=== PATIENT | female | born 1955 | race Caucasian/White ===

== ENCOUNTER 2016-11-23 | Outpatient (CLI) | END 2016-11-23 21:41 | disposition critical access hospital (66) | CPT/HCPCS: A0425; A0429 ==

== ENCOUNTER 2016-11-23 21:45 | Emergency (ER) | payer MEDICAID ==
[2016-11-23] MEDS ORDERED: ONDANSETRON 4 MG/2 ML VIAL IVP STA (21:53)
[2016-11-23] MEDS ORDERED: SODIUM CHLORIDE 0.9% 1,000 ML IV ONE ×2 (21:53→23:45)
[2016-11-23] MEDS ORDERED: ONDANSETRON 4 MG/2 ML VIAL ONE (22:06)
[2016-11-24] MEDS ORDERED: ONDANSETRON 4 MG/2 ML VIAL IVP STA (03:19)
[2016-11-24] MEDS ORDERED: ONDANSETRON 4 MG/2 ML VIAL ONE (03:27)
== END 2016-11-24 05:29 | disposition home or self-care (01) ==
DX: R11.10 Vomiting, unspecified (principal); F10.129 Alcohol abuse with intoxication, unspecified; R74.0 Nonspecific elevation of levels of transaminase and lactic acid dehydrogenase [LDH]; K21.9 Gastro-esophageal reflux disease without esophagitis; F17.200 Nicotine dependence, unspecified, uncomplicated

== ENCOUNTER 2017-01-05 11:47 | Outpatient (CLI) | payer MEDICAID | END 2017-01-05 11:48 | disposition home or self-care (01) | DX: M50.31 Other cervical disc degeneration, high cervical region (principal); M47.812 Spondylosis without myelopathy or radiculopathy, cervical region ==

== ENCOUNTER 2017-01-05 12:07 | Emergency (ER) | payer MEDICAID ==
[2017-01-05] MEDS ORDERED: ACETAMINOPHEN 325 MG TABLET PO STA (13:31)
[2017-01-05] MEDS ORDERED: DEXAMETHASONE 10 MG/ML VIAL PO STA (13:31)
[2017-01-05] MEDS ORDERED: ACETAMINOPHEN 325 MG TABLET PO ONE (13:33)
[2017-01-05] MEDS ORDERED: DEXAMETHASONE 10 MG/ML VIAL ONE (13:33)
[2017-01-05] MEDS ORDERED: CHERRY SYRUP 10 ML UDC PO ONE (13:34)
== END 2017-01-05 14:14 | disposition home or self-care (01) ==
DX: M54.2 Cervicalgia (principal); M54.9 Dorsalgia, unspecified; G89.29 Other chronic pain; K21.9 Gastro-esophageal reflux disease without esophagitis; F17.200 Nicotine dependence, unspecified, uncomplicated
CPT/HCPCS: 72050; 99282; 99283; A9270

== ENCOUNTER 2017-02-01 11:55 | Outpatient (CLI) | payer MEDICAID | END 2017-02-01 11:56 | disposition critical access hospital (66) | DX: T43.222A Poisoning by selective serotonin reuptake inhibitors, intentional self-harm, initial encounter (principal) | CPT/HCPCS: A0425; A0429 ==

== ENCOUNTER 2017-02-01 12:14 | Emergency (ER) | payer MEDICAID ==
[2017-02-01] MEDS ORDERED: SODIUM CHLORIDE 0.9% 1,000 ML IV ONE (12:33)
[2017-02-01] MEDS ORDERED: PROMETHAZINE 25 MG/1 ML VIAL ONE (14:31)
[2017-02-01] MEDS ORDERED: PROMETHAZINE 25 MG/1 ML VIAL IM STA (14:32)
[2017-02-02] MEDS ORDERED: PRAMIPEXOLE 0.25 MG TABLET PO STA (01:11)
[2017-02-02] MEDS ORDERED: clonazePAM 0.5 MG TABLET PO ONE (01:35)
[2017-02-02] MEDS ORDERED: clonazePAM 0.5 MG TABLET PO STA (01:38)
== END 2017-02-02 08:16 ==
DX: F32.9 Major depressive disorder, single episode, unspecified (principal); R45.851 Suicidal ideations; T43.222A Poisoning by selective serotonin reuptake inhibitors, intentional self-harm, initial encounter; R11.0 Nausea; M54.2 Cervicalgia; M54.9 Dorsalgia, unspecified; G89.29 Other chronic pain; K21.9 Gastro-esophageal reflux disease without esophagitis; F17.200 Nicotine dependence, unspecified, uncomplicated
CPT/HCPCS: 36415; 80053; 80306; 80307; 80320; 80329; 81003; 83690; 85025; 93005; 93010; 96360; 96361; 96372; 99285; A9270

== ENCOUNTER 2017-02-02 08:06 | Outpatient (CLI) | payer MEDICAID | END 2017-02-02 08:07 | DX: R45.851 Suicidal ideations (principal); Z78.1 Physical restraint status | CPT/HCPCS: A0425; A0428 ==

== ENCOUNTER 2017-05-07 19:03 | Outpatient (CLI) | payer MEDICAID | END 2017-05-07 19:04 | disposition critical access hospital (66) | LOC: EMS 19:03 | PROVIDERS: ATTEND Surgery | DX: R10.9 Unspecified abdominal pain (principal) | CPT/HCPCS: A0425; A0429 ==

== ENCOUNTER 2017-05-07 19:21 | Emergency (ER) | payer MEDICAID ==
[2017-05-07 20:09] LABS: BILIRUBIN,URINE NEGATIVE (NEGATIVE)
[2017-05-07 20:10] LABS: UA w/ MICROSCOPIC CHARGE YES
[2017-05-07 20:21] LABS: UR CULTURE IF IND NOT INDICATED; WBC,URINE 0-3 /HPF (0-5)
--- NOTE | 2017-05-07 20:24 | ED Physician Documentation ---
PD HPI ABD PAIN - Stated complaint Stated Complaint: ABD PAIN - Chief complaint Chief Complaint: Abd Pain - History obtained from History obtained from: Patient - History of Present Illness Timing - onset: How many hours ago (2-3), Today Timing - duration: Hours Timing - details: Abrupt onset, Still present Quality: Aching, Sharp, Pain Location: RLQ Radiation: Right flank. No: Chest, Improved by: No: Laying still, Position Worsened by: Breathing. No: Moving, Palpation Associated symptoms: Nausea. No: Fever, Vomiting, Diarrhea, Dysuria Similar symptoms before: Has not had sx before Review of Systems Constitutional: denies: Fever, Chills Nose: denies: Rhinorrhea / runny nose, Congestion Throat: denies: Sore throat Cardiac: denies: Chest pain / pressure Respiratory: denies: Cough GI: reports: Nausea. 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 : None HEENT: None Psych: Depression, Anxiety, Other Musculoskeletal: Chronic back pain Derm: None - Past Surgical History Past Surgical History: Yes General: Cholecystectomy, Appendectomy, Bowel surgery, Colonoscopy Ortho: Spine surgery /ICT QUALITY ASSURANCE ENGINEER: Hysterectomy - Present Medications Home Medications: Ambulatory Orders Medication Instructions Recorded Confirmed Acetaminophen [Tylenol] 325 mg PO QID PRN 02/01/17 02/01/17 Citalopram Hydrobromide 10 mg PO DAILY 02/01/17 05/07/17 [Citalopram HBr] Ferrous Sulfate 324 mg PO BID 02/01/17 05/07/17 Folic Acid 1 mg PO DAILY 02/01/17 05/07/17 Furosemide 20 mg PO DAILY 02/01/17 05/07/17 Mirtazapine 15 mg PO DAILY 02/01/17 05/07/17 Pramipexole [Mirapex] 0.125 mg PO DAILY 02/01/17 05/07/17 Buprenorphine HCl 16 mg SL DAILY 05/07/17 05/07/17 Dexamethasone [Decadron] 4 mg PO DAILY #5 tablet 05/07/17 Oxycodone HCl/Acetaminophen 1 - 2 each PO Q6H PRN #15 tablet 05/07/17 [Percocet 5-325 mg Tablet] - Allergies Allergies/Adverse Reactions: Allergies Allergy/AdvReac Type Severity Reaction Status Date / Time aspirin AdvReac Nausea Verified 01/05/17 12:21 NSAIDS (Non-Steroidal AdvReac Nausea Verified 01/05/17 12:21 Anti-Inflamma - Social History Does the pt smoke?: Yes Smoking Status: Current some day smoker Does the pt drink ETOH?: Yes Does the pt have substance abuse?: Yes Substance Use and Type: Marijuana - Family History Family history: denies: Aortic aneursym, Aortic dissection - Immunizations Immunizations are current?: Yes Immunizations: TDAP >10years/unknown, Other immun current - POLST Patient has POLST: No PD ED PE NORMAL - Vitals Vital signs reviewed: Yes - General General: Alert and oriented X 3, Well developed/nourished, Other (appears in pain) - Neck Neck: Supple, no meningeal sign, No adenopathy - Cardiac Cardiac: RRR, No murmur - Respiratory Respiratory: Clear bilaterally - Abdomen Abdomen: Normal bowel sounds, Soft, Non tender, Non distended, No organomegaly - Female Female : Deferred - Rectal Rectal: Deferred - Back Back: No spinal TTP, Other Results - Vitals Vitals: Vital Signs - 24 hr 05/07/17 05/07/17 05/07/17 19:24 21:52 23:06 Temperature 36 C L 36.7 C Heart Rate 78 82 86 Respiratory 18 20 18 Rate Blood Pressure 150/87 H 162/80 H 145/70 H O2 Saturation 97 100 100 Oxygen O2 Source [With Activity] Nasal cannula O2 Source [Without Activity] Nasal cannula O2 Source Room air - Labs Labs: Laboratory Tests 05/07/17 05/07/17 05/07/17 20:00 21:14 21:14 WBC 18.9 H RBC 5.15 Hgb 15.2 Hct 46.0 MCV 89.3 MCH 29.5 MCHC 33.0 RDW 17.1 H Plt Count 295 MPV 7.0 L Neut # 16.9 H Lymph # 1.3 L [place] # 0.7 Eos # 0.0 Baso # 0.0 Absolute Nucleated RBC 0.00 Nucleated RBCs 0.0 Sodium 137 Potassium 3.6 Chloride 103 Carbon Dioxide 23 Anion Gap 11.0 BUN 13 Creatinine 0.8 Estimated GFR (MDRD) 73 L Glucose 127 H Calcium 9.5 Total Bilirubin 0.4 AST 19 ALT 11 Alkaline Phosphatase 154 H Total Protein 8.4 H Albumin 4.5 Globulin 3.9 Albumin/Globulin Ratio 1.2 Lipase 19 L Urine Color YELLOW Urine Clarity CLEAR Urine pH 7.0 Ur Specific [place] 1.015 Urine Protein NEGATIVE Urine Glucose (UA) NEGATIVE Urine Ketones NEGATIVE Urine Occult Blood SMALL H Urine Nitrite NEGATIVE Urine Bilirubin NEGATIVE Urine Urobilinogen 0.2 (NORMAL) Ur Leukocyte Esterase NEGATIVE Urine RBC 6-10 H Urine WBC 0-3 Ur Squamous Epith Cells NONE SEEN Urine Bacteria None Seen Ur Microscopic Review INDICATED Urine Culture Comments NOT INDICATED - Rads (name of study) KUB CT Radiology: Prelim report reviewed, EMP read contemporaneously (4 mm stone distal ureter with moderate hydroureter/renal swelling. Incidental large renal cyst, similar to prior scans. ) PD MEDICAL DECISION MAKING - ED course Complexity details: reviewed results, re-evaluated patient (moderately better with IM then oral meds. ), considered differential (so she does have 4 mm stone at distal ureter with some hydronephrosis, which reasonably hurts a lot. She has history of drug seeking behavior in the past. Quandary about pain meds but my sympathy wins out and I gave her some meds here and Rx for short term. For what it is worth, I did tell her this was exception to the general concept of deferring pain meds to her primary care provider. ), d/w patient Departure - Departure Disposition: 01 Home, Self Care Clinical Impression: Flank pain, acute, Ureterolithiasis Condition: Stable Record reviewed to determine appropriate education?: Yes Instructions: ED Stone Renal W Colic Prescriptions: Dexamethasone [Decadron] 4 mg PO DAILY #5 tablet Oxycodone HCl/Acetaminophen [Percocet 5-325 mg Tablet] 1 - 2 each PO Q6H PRN # 15 tablet PRN Reason: Pain Comments: Continue usual medications. Add Decadron for inflammation from the stone, and Percocet for pain if needed. Recheck with yur PCP in the next 2 days, call for appt. Discharge Date/Time: 05/07/17 23:30
[2017-05-07] MEDS ORDERED: HYDROmorphone 1 MG/ML SYRINGE IM STA (20:43)
[2017-05-07] MEDS ORDERED: PROMETHAZINE 25 MG/1 ML VIAL IM STA (20:44)
[2017-05-07] MEDS ORDERED: HYDROmorphone 1 MG/ML SYRINGE ONE (20:53)
[2017-05-07] MEDS ORDERED: PROMETHAZINE 25 MG/1 ML VIAL ONE (20:53)
[2017-05-07 21:23] LABS: BASOPHILS % (AUTO) 0.2 %; EOSINOPHILS % (AUTO) 0.1 %; HGB - HEMOGLOBIN 15.2 g/dL (12.0-16.0); LYMPHOCYTES # (AUTO) 1.3 10^3/uL (1.5-3.5); LYMPHOCYTES % (AUTO) 6.8 %; MEAN CORPUSCULAR HEMOGLOBIN 29.5 pg (27.0-31.0); MEAN CORPUSCULAR VOLUME 89.3 fL (81.0-99.0); MONOCYTES # (AUTO) 0.7 10^3/uL (0.0-1.0); MONOCYTES % (AUTO) 3.9 %; NEUTROPHILS # (AUTO) 16.9 10^3/uL (1.5-6.6); RED BLOOD COUNT 5.15 10^6/uL (4.20-5.40); RED CELL DISTRIBUTION WIDTH 17.1 % (12.0-15.0); UNCORRECTED WHITE BLOOD COUNT 18.9 x10^3/uL; WHITE BLOOD COUNT 18.9 x10^3/uL (4.8-10.8)
[2017-05-07 21:35] LABS: ALBUMIN/GLOBULIN RATIO 1.2 (1.0-2.2); BILIRUBIN,TOTAL 0.4 mg/dL (0.2-1.0); CALCIUM 9.5 mg/dL (8.5-10.3); CREATININE 0.8 mg/dL (0.4-1.0); POTASSIUM 3.6 mmol/L (3.5-5.0); TOTAL PROTEIN 8.4 g/dL (6.7-8.2)
[2017-05-07] MEDS ORDERED: oxyCOD/ACETAMIN 5 MG/325 MG TABLET PO STA (22:09)
[2017-05-07] MEDS ORDERED: oxyCOD/ACETAMIN 5 MG/325 MG TABLET PO ONE (22:11)
--- NOTE | 2017-05-07 22:29 | CT Preliminary Report ---
Exam: CT KUB IMPRESSION: 1. Moderate right hydroureteronephrosis extending to a 4 mm distal ureteral calculus. 2. Three subcentimeter right intrarenal calculi. 3. Unchanged postcholecystectomy dilatation of the common bile duct. [facility] SITE ID: [id number]
--- NOTE | 2017-05-07 22:32 | CT Report ---
EXAM: CT ABDOMEN AND PELVIS (CT KUB) EXAM DATE: 05/07/2017 09:50 PM. CLINICAL HISTORY: Right abdominal/flank pain, onset yesterday. COMPARISONS: 07/30/2016. TECHNIQUE: Routine axial helical CT imaging was performed through the abdomen and pelvis without IV c ontrast. Reconstructions: Coronal and sagittal. In accordance with CT protocol optimization, one or more of the following dose reduction techniques w ere utilized for this exam: automated exposure control, adjustment of mA and/or KV based on patient s ize, or use of iterative reconstructive technique. FINDINGS: Lung Bases: Mild emphysematous changes. Linear atelectasis or scarring in the posterior right lower l obe and inferolateral right middle lobe. Right Kidney/Ureter: Large 6.0 cm cortical/parapelvic cyst in the lower pole. Moderate hydroureterone phrosis extending to a 4 mm stone in the distal ureter (axial image 107, coronal image 59). Three int rarenal calculi in the lower pole, the largest 6 mm. Associated perinephric and periureteric fat stra nding. Left Kidney/Ureter: 5.4 cm cortical cyst in the anterior lower pole. No stones, hydronephrosis, or hy droureter. No perinephric fat stranding. Other Solid Organs: Atrophic pancreas with numerous parenchymal calcifications in the body and tail, likely sequela of prior pancreatitis. Noncontrast images of the solid organs are otherwise grossly un remarkable. Gallbladder/Bile Ducts: Post cholecystectomy. The common bile duct is dilated, measuring 15 mm in mago meter, as before (upper limits of normal postcholecystectomy 10 mm). Peritoneal Cavity: The bowel is grossly unremarkable, without evident focal wall thickening or adjace nt mesenteric fat stranding to suggest acute inflammatory process, or evidence of bowel obstruction. The appendix is surgically absent. No free fluid, pneumoperitoneum, or moni adenopathy. Pelvic Organs: Post hysterectomy. The bladder is within normal limits. Vasculature: Mild atherosclerotic calcifications within the aorta and iliac arteries. No aneurysm. Bones: Chronic T10 compression fracture. Partially imaged thoracolumbar spinal fusion hardware extend ing from the visualized thoracic spine to L4. Remote surgical fusion of L4-S1. No acute bony abnormal ity. Other: Unchanged small fat-containing umbilical hernia. IMPRESSION: 1. Moderate right hydroureteronephrosis extending to a 4 mm distal ureteral calculus. 2. Three subcentimeter right intrarenal calculi. 3. Unchanged postcholecystectomy dilatation of the common bile duct. [facility] Referring Provider Line: [phone] SITE ID: [id number]
[2017-05-07] MEDS ORDERED: oxyCODONE/ACET 5/325 Prepack 4 PO STA (23:02)
[2017-05-07] MEDS ORDERED: DEXAMETHASONE 10 MG/ML VIAL PO STA (23:02)
[2017-05-07] MEDS ORDERED: oxyCODONE/ACET 5/325 Prepack 4 PO ONE (23:04)
[2017-05-07] MEDS ORDERED: DEXAMETHASONE 10 MG/ML VIAL ONE (23:04)
[2017-05-07 23:07] VITALS: BP 145/70
== END 2017-05-07 23:30 | disposition home or self-care (01) ==
LOC: EDUNIT# → ED 19:21
DX: N13.2 Hydronephrosis with renal and ureteral calculous obstruction (principal); R10.31 Right lower quadrant pain; K21.9 Gastro-esophageal reflux disease without esophagitis; F17.200 Nicotine dependence, unspecified, uncomplicated
CPT/HCPCS: 36415; 74176; 80053; 81001; 83690; 85025; 96372; 99283; 99284; A9270; J1170; 81003; 87086

== ENCOUNTER 2019-06-10 12:02 | Outpatient (CLI) | payer MEDICAID ==
--- NOTE | 2019-06-11 08:50 | MRI Report ---
Reason: THORACIC BACK PAIN Procedure Date: 06/10/2019 Accession Number: [id number] / [id number] Procedure: MRI - Thoracic Spine W/O CPT Code: FULL RESULT: EXAM: MRI THORACIC SPINE WITHOUT CONTRAST EXAM DATE: 06/10/2019 02:05 PM. CLINICAL HISTORY: Reported history of severe mid back pain. Previous multilevel posterior spinal instrumented fusion and decompressions. COMPARISONS: No prior MRI. Thoracic spine 2 view 04/20/2019 4:09 PM. TECHNIQUE: Multiplanar, multisequence T1-weighted and fluid-sensitive sequences of the thoracic spine from C7 to L1 without contrast. Other: None. FINDINGS: Spinal Canal: No signal abnormality in the visualized spinal cord. However, limited evaluation of the lower thoracic cord secondary to susceptibility artifact created by posterior benjamin and screw fusion hardware. Alignment: Mild focal kyphosis centered at T7-T8. Mild degenerative anterior subluxation of C7 on T1. Minimal degenerative anterolisthesis of T1 on T2 may also be present. Bone Marrow: Susceptibility artifact from posterior spinal fusion hardware is present. Posterior benjamin and screw fusion hardware extends from the T8 level inferiorly and into indeterminant distance into the lumbar region. Chronic appearing mild anterior wedge compression type deformities of the T8 and T11 vertebral bodies. No clear evidence of acute compression fracture. Moderate Modic type I degenerative endplate signal changes are present anteriorly at the T6-T7 level. Probable atypical hemangioma of the T5 vertebral body posteriorly on the left. Disk Levels/Facets: C7-T1: Moderate disk degeneration and facet arthropathy. Mild central stenosis. Bulging disk. No definite cord compression. At least mild if not moderate bilateral foraminal stenosis, potentially worse on the left than the right. T1-T2: Mild disk degeneration. Mild to moderate facet arthropathy. Minimal disk bulge. No significant central stenosis. Patent neural foramina. T2-T3: Mild disk degeneration. Asymmetric right intraforaminal disk protrusion associated with approximately mild stenosis. Mild to moderate facet arthropathy left greater than right. T3-T4: Minimal disk degeneration and facet arthropathy. No significant stenosis. T4-T5: Mild disk degeneration. Minimal left and mild right facet arthropathy. No focal disk herniation or significant stenosis. T5-T6: Minimal disk degeneration. Mild to moderate right greater than left facet arthropathy. No focal disk herniation or significant stenosis. T6-T7: Moderate disk degeneration. Mild facet arthropathy. No focal disk herniation or significant stenosis. T7-T8: Moderate disk degeneration. Minimal to mild facet arthropathy. No focal disk herniation or significant stenosis. T8-T9: No evidence for focal disk herniation or significant central stenosis. Ill-defined foramina. T9-T10: Negligible disk space narrowing. No evidence for focal disk herniation or central stenosis. T10-T11: Chronic moderate disk degeneration. Degenerative Schmorl's nodes. Facet arthropathy is likely present but ill-defined. No significant or acute central canal narrowing or disk extrusion ill-defined neural foramina. T11-T12: Mild degenerative changes without evidence for significant central stenosis or focal disk herniation. T12-L1: Mild disk degeneration. Patent central canal, previous dorsal laminectomy decompression. Ill-defined neural foramina. Musculature: Mild diffuse posterior paraspinal muscle fatty atrophy. Soft tissue detail is obscured posteriorly by artifact from fusion hardware. Prominent cysts of both kidneys. Nonspecific prominence/dilatation of the partially visualized biliary tree. Other: None. IMPRESSION: Multilevel degenerative spinal spondylosis. Prior multilevel lumbar spine surgery. As far as can be determined, no significant central stenosis or focal cord lesion. No evidence for acute or high-grade foraminal stenosis or focal thoracic disk extrusion. Degenerative changes in the lower cervical spine and upper lumbar spine are not optimally characterized. [facility]
== END 2019-06-10 12:03 | disposition home or self-care (01) ==
LOC: DI 12:02
PROVIDERS: ATTEND Family Medicine
DX: M47.814 Spondylosis without myelopathy or radiculopathy, thoracic region (principal)
CPT/HCPCS: 72146

== ENCOUNTER 2019-07-29 13:17 | Outpatient (CLI) | payer MEDICAID ==
--- NOTE | 2019-07-31 13:25 | CT Report ---
Reason: PSEUDARTHROSIS AFTER FUSION OR ARTHRODESIS Procedure Date: 07/29/2019 Accession Number: [id number] / [id number] Procedure: CT - LUMBAR SPINE WO CPT Code: FULL RESULT: EXAM: CT LUMBAR SPINE WITHOUT CONTRAST EXAM DATE: 07/29/2019 01:49 PM. CLINICAL HISTORY: Pseudarthrosis after fusion or arthrodesis. COMPARISONS: LUMBAR SPINE 2 VIEW 04/20/2019 4:15 PM. TECHNIQUE: Thin-section axial images were acquired of the lumbar spine from T12 to S1 without contrast. Post-processing: Coronal and sagittal reformats. Other: None. In accordance with CT protocol optimization, one or more of the following dose reduction techniques were utilized for this exam: automated exposure control, adjustment of mA and/or KV based on patient size, or use of iterative reconstructive technique. FINDINGS: Alignment: No scoliosis or spondylolisthesis. Bones: Five [id number] lumbar vertebral bodies are present. The bones are demineralized. No acute lumbar spine fracture is identified. Posterior spinal fusion extends from the thoracic spine through L4. Bilateral pedicle screws are present from T12 through L4 at all levels which are connected by vertically oriented stabilizing rods. Interbody fusion devices are present at L1-L2, L2-L3, and L3-L4. There is no evidence of hardware failure or loosening. The pedicle screws do not impinge the spinal canal or the foramina. There is solid bony fusion across the disk spaces at L1-L2, L2-L3, and L3-L4. Fusion of the posterior aspect of the L4-L5 and L5-S1 disk spaces is also seen but the anterior portions of the disk spaces remain unfused. There is solid bony fusion across the posterior elements from T11 through S1 bilaterally. Disk Levels/Facets: T11-T12: The spinal canal and foramina are patent. T12-L1: The spinal canal is decompressed. The foramina are pain. L1-L2: The spinal canal is decompressed. The foramina are patent. L2-L3: The spinal canal is decompressed. The foramina are patent. L3-L4: The spinal canal is decompressed. The foramina are patent. L4-L5: The spinal canal is decompressed. The foramina are patent. L5-S1: The spinal canal is decompressed. The foramina are patent. Musculature: Extensive postoperative changes are present in the posterior paraspinal muscles. Other: The left adrenal gland is diffusely thickened. Cholecystectomy clips are in place. Extensive calcifications are noted in the expected location of the pancreas. IMPRESSION: 1. Extensive anterior and posterior fusion is present throughout the lumbar spine without evidence of hardware failure or loosening. 2. There is solid bony fusion across the disk spaces at L1-L2, L2-L3, and L3-L4. Solid bony fusion is also present across the bilateral posterior elements from T11 through L5. There is partial fusion at the L4-L5 and L5-S1 disk spaces. 3. No acute cervical spine fracture or malalignment. 4. Dorsal decompression is present from L1 through L5. 5. No evidence of spinal canal or foraminal stenosis. [facility]
--- NOTE | 2019-07-31 13:25 | CT Report ---
Reason: PSEUDARTHROSIS AFTER FUSION OR ARTHRODESIS Procedure Date: 07/29/2019 Accession Number: [id number] / [id number] Procedure: CT - THORACIC SPINE WO CPT Code: FULL RESULT: EXAM: CT THORACIC SPINE WITHOUT CONTRAST EXAM DATE: 07/29/2019 01:49 PM. CLINICAL HISTORY: Pseudarthrosis after fusion or arthrodesis. COMPARISONS: THORACIC SPINE W/O 06/10/2019 1:34 PM THORACIC SPINE 2 VIEW 04/20/2019 4:09 PM. TECHNIQUE: Thin-section axial images were acquired of the thoracic spine from C7 to L1 without contrast. Post-processing: Coronal and sagittal reformats. Other: None. In accordance with CT protocol optimization, one or more of the following dose reduction techniques were utilized for this exam: automated exposure control, adjustment of mA and/or KV based on patient size, or use of iterative reconstructive technique. FINDINGS: Alignment: Thoracic kyphosis is present centered at T7-T8 due to disk height loss at this level as well as vertebral body height loss at T8. There is no scoliosis. Grade 1 anterolisthesis is again seen at T7-T8. Bones: The bones are demineralized. No acute thoracic spine fracture is identified. An anterior wedge compression fracture of T8 appears stable compared to the prior exams. An old 2 column fracture at T11 is noted, and there is no evidence of worsening vertebral body height loss compared to the prior radiographs. Posterior spinal fusion hardware begins at T8 and extends inferiorly out of the field of view. Bilateral pedicle screws are present at all levels except at T8-T11. The pedicle screws are connected by vertically oriented stabilizing rods. Merissa-screw lucency is seen bilaterally at T8 which in retrospect was present on the prior thoracic spine radiographs. There is no evidence of hardware fracture. The pedicle screws do not impinge the spinal canal or foramina. However, the T8 pedicle screws are again demonstrated extending into the T7-T8 disk space. Disk Levels/Facets: No significant disk bulge or herniation is identified given susceptibility artifact from posterior spinal fusion hardware. Mild spinal canal stenosis is noted at the T11 fracture due for mild retropulsion of the posterior superior vertebral body. Moderate bilateral foraminal narrowing is noted at T9-T10 and T10-T11 due to disk height loss and facet arthropathy. The foramina are patent at all other thoracic levels. Musculature: There is mild diffuse fatty atrophy of the posterior paraspinal muscles. Other: Mild emphysematous changes are seen in the visualized lungs. The left adrenal gland appears diffusely thickened. IMPRESSION: 1. No acute cervical spine fracture or interval change in alignment compared to the thoracic spine MRI from 06/10/2019 and the thoracic spine radiographs from 04/20/2019. 2. Kyphosis is again demonstrated with the apex at T7-T8. 3. Stable appearance of chronic-appearing fractures at T8 and T11 without further vertebral body height loss. 4. Lucencies are seen surrounding the bilateral T8 screws likely representing loosening. No hardware fracture is identified. [facility]
== END 2019-07-29 13:18 | disposition home or self-care (01) ==
LOC: DI 13:17
PROVIDERS: ATTEND Neurological Surgery
DX: M51.34 Other intervertebral disc degeneration, thoracic region (principal); M47.814 Spondylosis without myelopathy or radiculopathy, thoracic region; M40.204 Unspecified kyphosis, thoracic region; M84.48XS Pathological fracture, other site, sequela; M48.04 Spinal stenosis, thoracic region; Z98.1 Arthrodesis status
CPT/HCPCS: 72128; 72131

== ENCOUNTER 2020-03-11 17:18 | Outpatient (CLI) | payer MEDICAID | END 2020-03-11 17:19 | disposition critical access hospital (66) | LOC: EMS 17:18 | PROVIDERS: ATTEND Surgery | DX: R45.851 Suicidal ideations (principal); R46.89 Other symptoms and signs involving appearance and behavior | CPT/HCPCS: A0425; A0429; A0999 ==

== ENCOUNTER 2020-03-11 17:37 | Inpatient (IN) | payer MEDICAID ==
--- NOTE | 2020-03-11 17:48 | ED Physician Documentation ---
PD HPI MHE - Stated complaint Stated Complaint: MHE - History obtained from History obtained from: Patient, EMS - History of Present Illness Primary symptom: Suicidal ideation (65-year-old woman who used to be well-known to this emergency department when she was an alcoholic but has not been drinking in about 3 years and as such her visits were significantly fewer and further between. Brought in by paramedics today, reportedly thinking that a pill that she took yesterday was laced with something and has been acting odd ever since. There was a report that she made a threat to jump out her window although the patient denies this.) Review of Systems Ten Systems: 10 systems reviewed and negative Constitutional: denies: Fever, Chills Cardiac: denies: Chest pain / pressure, Palpitations Respiratory: denies: Dyspnea, Cough GI: denies: Abdominal Pain, Nausea, Vomiting PD PAST MEDICAL HISTORY - Past Medical History Cardiovascular: None Respiratory: None Endocrine/Autoimmune: None GI: GERD, C.difficile, Other HYDRAULIC BLOCKER: None : None HEENT: None Psych: Depression, Anxiety, Other Musculoskeletal: Chronic back pain Derm: None - Past Surgical History Past Surgical History: Yes General: Cholecystectomy, Appendectomy, Bowel surgery, Colonoscopy Ortho: Spine surgery /HYDRAULIC BLOCKER: Hysterectomy - Present Medications Home Medications: Ambulatory Orders Medication Instructions Recorded Confirmed Acetaminophen [Tylenol] 325 mg PO QID PRN 02/01/17 02/01/17 Citalopram Hydrobromide 10 mg PO DAILY 02/01/17 05/07/17 [Citalopram HBr] Ferrous Sulfate 324 mg PO BID 02/01/17 05/07/17 Folic Acid 1 mg PO DAILY 02/01/17 05/07/17 Furosemide 20 mg PO DAILY 02/01/17 05/07/17 Mirtazapine 15 mg PO DAILY 02/01/17 05/07/17 Pramipexole [Mirapex] 0.125 mg PO DAILY 02/01/17 05/07/17 Oxycodone HCl/Acetaminophen 1 - 2 each PO Q6H PRN #15 tablet 05/07/17 [Percocet 5-325 mg Tablet] buprenorphine HCL [Buprenorphine 16 mg SL DAILY 05/07/17 05/07/17 HCl] dexAMETHasone [Decadron] 4 mg PO DAILY #5 tablet 05/07/17 Morphine ER 15 mg PO DAILY 03/11/20 03/11/20 - Allergies Allergies/Adverse Reactions: Allergies Allergy/AdvReac Type Severity Reaction Status Date / Time aspirin AdvReac Nausea Verified 01/05/17 12:21 NSAIDS (Non-Steroidal AdvReac Nausea Verified 01/05/17 12:21 Anti-Inflamma - Social History Does the pt smoke?: Yes Smoking Status: Current some day smoker Does the pt drink ETOH?: Yes Does the pt have substance abuse?: Yes - Immunizations Immunizations are current?: Yes Immunizations: TDAP >10years/unknown, Other immun current - POLST Patient has POLST: No PD ED PE NORMAL - Vitals Vital signs reviewed: Yes - General General: Alert and oriented X 3, Other (She is agitated and slightly belligerent, but generally cooperative) - Neck Neck: Supple, no meningeal sign, No bony TTP - Cardiac Cardiac: RRR, No murmur - Respiratory Respiratory: No respiratory distress, Clear bilaterally - Abdomen Abdomen: Normal bowel sounds, Soft, Non tender - Back Back: No CVA TTP, No spinal TTP - Derm Derm: Normal color, Warm and dry - Extremities Extremities: No edema, No calf tenderness / cord - Neuro Neuro: No motor deficit, No sensory deficit Results - Vitals Vitals: Vital Signs - 24 hr 03/11/20 03/11/20 03/11/20 17:44 19:22 19:31 Temperature 36 C L Heart Rate 129 H 104 H 10 L Respiratory 20 20 15 Rate Blood Pressure 145/110 H 152/77 H 123/65 O2 Saturation 100 97 100 03/11/20 03/11/20 03/11/20 19:32 19:36 20:08 Temperature Heart Rate 101 H 100 119 H Respiratory 15 16 Rate Blood Pressure 142/74 H 165/91 H O2 Saturation 100 100 03/11/20 03/11/20 03/11/20 20:17 20:33 20:42 Temperature Heart Rate 116 H 117 H 105 H Respiratory 23 29 H 15 Rate Blood Pressure 151/71 H 140/125 H 134/73 H O2 Saturation 100 99 98 03/11/20 20:45 Temperature Heart Rate 90 Respiratory 15 Rate Blood Pressure 102/63 O2 Saturation 100 Oxygen O2 Source [With Activity] Nasal cannula O2 Source [Without Activity] Nasal cannula O2 Source Mechanical ventilator - EKG (time done) 2121 Rate: Rate (enter#) (85) Nikolai: Normal Intervals: Normal IN, Prolonged QT QRS: Normal Ischemia: Normal ST segments Computer interpretation: Agree with computer - Labs Labs: Laboratory Tests 03/11/20 03/11/20 03/11/20 18:21 18:21 18:21 WBC 13.9 H RBC 3.94 L Hgb 13.2 Hct 36.7 L MCV 93.1 MCH 33.5 H MCHC 36.0 RDW 12.1 Plt Count 276 MPV 8.3 Neut # (Auto) 12.4 H Lymph # (Auto) 0.6 L [place] # (Auto) 0.8 Eos # (Auto) 0.0 Baso # (Auto) 0.0 Absolute Nucleated RBC 0.00 Nucleated RBC % 0.0 Sodium 135 Potassium 2.7 L Chloride 97 L Carbon Dioxide 24 Anion Gap 14.0 H BUN 13 Creatinine 0.7 Estimated GFR (MDRD) 84 L Glucose 166 H Calcium 9.0 Total Bilirubin 0.7 AST 41 ALT 32 Alkaline Phosphatase 107 Total Protein 7.4 Albumin 4.2 Globulin 3.2 Albumin/Globulin Ratio 1.3 Lipase 19 L TSH 1.12 Urine Color Urine Clarity Urine pH Ur Specific [place] Urine Protein Urine Glucose (UA) Urine Ketones Urine Occult Blood Urine Nitrite Urine Bilirubin Urine Urobilinogen Ur Leukocyte Esterase Urine RBC Urine WBC Ur Squamous Epith Cells Urine Bacteria Ur Microscopic Review Urine Culture Comments Salicylates < 6.0 Urine Opiates Screen Ur Oxycodone Screen Urine Methadone Screen Ur Propoxyphene Screen Acetaminophen < 10 L Ur Barbiturates Screen Ur Tricyclics Screen Ur Phencyclidine Scrn Ur Amphetamine Screen U Methamphetamines Scrn U Benzodiazepines Scrn Urine Cocaine Screen U Cannabinoids Screen Ethyl Alcohol < 5.0 03/11/20 03/11/20 20:50 20:50 WBC RBC Hgb Hct MCV MCH MCHC RDW Plt Count MPV Neut # (Auto) Lymph # (Auto) [place] # (Auto) Eos # (Auto) Baso # (Auto) Absolute Nucleated RBC Nucleated RBC % Sodium Potassium Chloride Carbon Dioxide Anion Gap BUN Creatinine Estimated GFR (MDRD) Glucose Calcium Total Bilirubin AST ALT Alkaline Phosphatase Total Protein Albumin Globulin Albumin/Globulin Ratio Lipase TSH Urine Color YELLOW Urine Clarity CLEAR Urine pH 6.5 Ur Specific [place] >=1.030 H Urine Protein NEGATIVE Urine Glucose (UA) NEGATIVE Urine Ketones 40 H Urine Occult Blood MODERATE H Urine Nitrite NEGATIVE Urine Bilirubin NEGATIVE Urine Urobilinogen 0.2 (NORMAL) Ur Leukocyte Esterase NEGATIVE Urine RBC 0-5 Urine WBC 0-3 Ur Squamous Epith Cells NONE SEEN Urine Bacteria None Seen Ur Microscopic Review INDICATED Urine Culture Comments NOT INDICATED Salicylates Urine Opiates Screen NEGATIVE Ur Oxycodone Screen POSITIVE H Urine Methadone Screen NEGATIVE Ur Propoxyphene Screen NEGATIVE Acetaminophen Ur Barbiturates Screen NEGATIVE Ur Tricyclics Screen POSITIVE H Ur Phencyclidine Scrn NEGATIVE Ur Amphetamine Screen NEGATIVE U Methamphetamines Scrn NEGATIVE U Benzodiazepines Scrn NEGATIVE Urine Cocaine Screen NEGATIVE U Cannabinoids Screen POSITIVE H Ethyl Alcohol - Rads (name of study) Ct Head Radiology: EMP read contemporaneously (nad) 1v Chest Radiology: EMP read contemporaneously (ETT 2.7cm above gordon) Post central line and NG tube chest x-ray Radiology: EMP read contemporaneously (Gastric tube in the stomach, central line in the low SVC right atrium, endotracheal tube unchanged) Procedures - Intubation Provider: Emergency physician Medications: Propofol (100mg IVP), Rocuronium (40mg IVP) Blade: Stew (4) Tube: Size-enter number (7.5), Cuffed, Marked at teeth-enter cm (21) Route: Oral Confirmation: Direct visualization, Bilateral breath sounds, End tidal CO2, Pulse ox, Chest xray Complications: No compications - Central Line Central Line Preparation: Unable to obtain consent, Time out completed, Ultrasound used, Sterile prep and drape Central line location: Right IJ Central line type: Triple lumen Central line aftercare: Chlorhexidine disc placed, Secured, Placement confirmed, No pneumothorax, No complications, Bundle checklist complete PD MEDICAL DECISION MAKING - ED course ED course: 65-year-old woman presents with suicidal ideation potentially although she denies it and odd behavior. There was a potential report of some sort of drug ingestion. Unclear what this was. After presentation the emergency department she quickly decompensated and had a first and then a second seizure. She did not return to baseline between the seizures and the altered mental status after the second Seizure was prolonged and profound necessitating endotracheal intubation for airway protection. She was not hypoxic. 1 of her peripheral IVs infiltrated, she was a tough IV stick so I placed a central line in the right IJ without issues. Spoke with Dr. Saunders for admission to the ICU at 8:52 PM. - Critical Care Time(min): 45 Time Includes: Direct patient care, Review records, Reassess patient, Document care, Coordinate care, Medical consult Data interpretation: Labs, Pulse ox Procedures excluded from critical care time: Central IV, Intubation Departure - Departure Disposition: 66 [facility] DC/Xfer Clinical Impression: Seizure, Depressive disorder Respiratory failure Qualifiers: Chronicity: acute Respiratory failure complication: unspecified whether with hypoxia or hypercapnia Qualified Code(s): J96.00 - Acute respiratory failure, unspecified whether with hypoxia or hypercapnia Drug overdose Qualifiers: Encounter type: initial encounter Injury intent: undetermined intent Qualified Code(s): T50.904A - Poisoning by unspecified drugs, medicaments and biological substances, undetermined, initial encounter Condition: Critical
[2020-03-11] MEDS ORDERED: OLANZapine 10 MG VIAL IM STA (18:05)
[2020-03-11 18:24] LABS: BASOPHILS % (AUTO) 0.2 %; HGB - HEMOGLOBIN 13.2 g/dL (12.0-16.0); LYMPHOCYTES # (AUTO) 0.6 10^3/uL (1.5-3.5); LYMPHOCYTES % (AUTO) 4.2 %; MEAN CORPUSCULAR HEMOGLOBIN 33.5 pg (27.0-31.0); MEAN CORPUSCULAR VOLUME 93.1 fL (81.0-99.0); MEAN PLATELET VOLUME 8.3 fL (7.9-10.8); MONOCYTES # (AUTO) 0.8 10^3/uL (0.0-1.0); MONOCYTES % (AUTO) 5.7 %; NEUTROPHILS # (AUTO) 12.4 10^3/uL (1.5-6.6); NEUTROPHILS % (AUTO) 89.3 %; PLT - PLATELET COUNT 276 10^3/uL (130-450); RED BLOOD COUNT 3.94 10^6/uL (4.20-5.40); RED CELL DISTRIBUTION WIDTH 12.1 % (12.0-15.0); WHITE BLOOD COUNT 13.9 x10^3/uL (4.8-10.8)
[2020-03-11] MEDS ORDERED: LORazepam 2 MG/ML VIAL IVP STA (18:24)
[2020-03-11 18:40] LABS: ACETAMINOPHEN < 10 ug/mL (10-30); ALBUMIN 4.2 g/dL (3.2-5.5); ALBUMIN/GLOBULIN RATIO 1.3 (1.0-2.2); ALKALINE PHOSPHATASE 107 IU/L (42-121); ALT ALANINE AMINOTRANSFERASE 32 IU/L (10-60); AST ASPARTATE AMINOTRANSFERASE 41 IU/L (10-42); BILIRUBIN,TOTAL 0.7 mg/dL (0.2-1.0); BUN - BLOOD UREA NITROGEN 13 mg/dL (6-20); CARBON DIOXIDE - CO2 24 mmol/L (21-32); CHLORIDE 97 mmol/L (101-111); CREATININE 0.7 mg/dL (0.4-1.0); GLUCOSE 166 mg/dL (70-100); LIPASE 19 U/L (22-51); SALICYLATE < 6.0 mg/dL; SODIUM 135 mmol/L (135-145); TOTAL PROTEIN 7.4 g/dL (6.7-8.2)
[2020-03-11] MEDS ORDERED: POTASSIUM CHLOR 10 MEQ/100 ML 10 MEQ/100 ML BAG IV ONE (18:45)
[2020-03-11] MEDS ORDERED: POTASSIUM CHLORIDE 20 MEQ TABLET PO STA (18:45)
[2020-03-11] MEDS ORDERED: THIAMINE INJ 100 MG in SODIUM CHLORIDE 0.9% 50 ML IV STA (18:59)
[2020-03-11] MEDS ORDERED: SODIUM CHLORIDE 0.9% 1,000 ML IV ONE (18:59)
[2020-03-11] MEDS ORDERED: PROPOFOL 500 MG/50 ML 500 MG/50 ML VIAL IV STA (19:09)
[2020-03-11] MEDS ORDERED: PROPOFOL 200 MG/20 ML VIAL IVP STA (19:09)
[2020-03-11] MEDS ORDERED: ROCURONIUM 50 MG/5 ML VIAL IVP STA (19:09)
[2020-03-11] MEDS ORDERED: ROCURONIUM 50 MG/5 ML VIAL ONE (20:13)
--- NOTE | 2020-03-11 20:20 | XRAY Report ---
Reason: resp failure Procedure Date: 03/11/2020 Accession Number: [id number] / [id number] Procedure: XR - Chest 1 View X-Ray CPT Code: 79590 Final Report FULL RESULT: EXAM: CHEST RADIOGRAPHY EXAM DATE: 03/11/2020 08:04 PM. CLINICAL HISTORY: Respiratory failure. COMPARISON: THORACIC SPINE 3 VIEW 08/26/2016 10:41 PM. TECHNIQUE: 1 view. FINDINGS: Lungs/Pleura: There is mild right diaphragm elevation. There is no consolidative process. There is mild central interstitial prominence. Negative for pneumothorax. Mediastinum: There is an endotracheal tube and the tip is 2.7 cm above the gordon. The heart size is normal. The trachea is midline. Other: Surgical spine fixation hardware overlies lower thoracic spine unchanged. IMPRESSION: 1. Endotracheal tube tip 2.7 cm above gordon. Otherwise unchanged. RADIA
--- NOTE | 2020-03-11 20:31 | CT Report ---
Reason: 2 seizures Procedure Date: 03/11/2020 Accession Number: [id number] / [id number] Procedure: CT - HEAD WO CPT Code: Final Report FULL RESULT: EXAM: CT HEAD EXAM DATE: 03/11/2020 08:02 PM. CLINICAL HISTORY: Confusion. 2 seizures. COMPARISON: HEAD W/O 09/26/2016 6:34 AM. TECHNIQUE: Multiaxial CT images were obtained from the foramen magnum to the vertex. Reformats: Sagittal and coronal. IV contrast: None. In accordance with CT protocol optimization, one or more of the following dose reduction techniques were utilized for this exam: automated exposure control, adjustment of mA and/or KV based on patient size, or use of iterative reconstructive technique. FINDINGS: Parenchyma: No intraparenchymal hemorrhage. No evidence of mass, midline shift, or CT findings of infarction. Moralez-white differentiation is distinct. Extraaxial Spaces: Normal for age. No subdural or epidural collections identified. Ventricles: Normal in size and position. Sinuses and Orbits: Imaged paranasal sinuses, orbits, and mastoids show no significant abnormality. Bones: No evidence of fracture or calvarial defect. Other: None. IMPRESSION: Normal head CT. RADIA
--- NOTE | 2020-03-11 20:53 | XRAY Report ---
Reason: p central line Procedure Date: 03/11/2020 Accession Number: [id number] / [id number] Procedure: XR - Chest for Line Placement CPT Code: Final Report FULL RESULT: EXAM: CHEST RADIOGRAPHY EXAM DATE: 03/11/2020 08:42 PM. CLINICAL HISTORY: Central line. COMPARISON: CHEST 1 VIEW 03/11/2020 7:20 PM. TECHNIQUE: 1 view. FINDINGS: Lungs/Pleura: Lungs appear without significant interval change. Negative for a pneumothorax. Mediastinum: There is a new right jugular central line. The tip of the central line is obscured by spine hardware. The line does not appear to curve into the right ventricle. There is a new gastric tube with tip in the stomach. The tip of the endotracheal tube is 2.5 cm above gordon. Other: None. IMPRESSION: 1. Gastric tube tip in stomach. 2. Right jugular central line tip is in the low SVC or right atrium. Visualization obscured by spine hardware. RADIA
[2020-03-11 20:54] LABS: MUDS CUTOFF CONCENTRATIONS CUTOFF CONC BELOW:
[2020-03-11 20:56] LABS: BILIRUBIN,URINE NEGATIVE (NEGATIVE); GLUCOSE, URINE (UA) NEGATIVE (NEGATIVE); KETONES,URINE (UA) 40 mg/dL (NEGATIVE); LEUKOCYTE ESTERASE, URINE NEGATIVE (NEGATIVE); NITRITE,URINE NEGATIVE (NEGATIVE); OCCULT BLOOD,URINE MODERATE (NEGATIVE); PH,URINE 6.5 PH (5.0-7.5); PROTEIN,URINE NEGATIVE (NEGATIVE); UROBILINOGEN,URINE 0.2 (NORMAL) E.U./dL (NORMAL)
[2020-03-11 20:57] LABS: CLARITY,URINE CLEAR (CLEAR)
[2020-03-11] MEDS ORDERED: MAGNESIUM SULFATE 2 GRAM 2 GM/50 ML BAG IV ONE (21:03)
[2020-03-11 21:07] LABS: BACTERIA,URINE None Seen /HPF (None Seen); RBC,URINE 0-5 /HPF (0-5); SQUAMOUS EPITHELIAL CELL,UR NONE SEEN (<= Few)
[2020-03-11 21:08] LABS: AMPHETAMINE SCREEN,URINE NEGATIVE (NEGATIVE); BENZODIAZEPINES SCREEN, URINE NEGATIVE (NEGATIVE); COCAINE SCREEN URINE NEGATIVE (NEGATIVE); METHADONE SCREEN, URINE NEGATIVE (NEGATIVE); METHAMPHETAMINES SCREEN, URINE NEGATIVE (NEGATIVE); OPIATE SCREEN, URINE NEGATIVE (NEGATIVE); OXYCODONE SCREEN, URINE POSITIVE (NEGATIVE); PROPOXYPHENE SCREEN, URINE NEGATIVE (NEGATIVE); TRICYCLIC ANTIDEPRESSANT,URINE POSITIVE (NEGATIVE)
--- NOTE | 2020-03-11 21:13 | HISTORY & PHYSICAL EXAMINATION ---
Chief Complaint - Chief Complaint Chief Complaint: altered mental status, seizure History of Present Illness - Admitted From Admitted From:: [facility] ED - History Obtained From Records Reviewed: yes History obtained from: ED physician Exam Limitations: patient sedated and intubated - History of Present Illness HPI Comment/Other: This history is obtained from the HPI of the ED H&P because the patient is currently sedated and intubated and unable to provide history. Patient is a 65-year-old female with previous history of alcohol abuse who was brought to the ED by EMS. Per EMS the patient stated that she took a pill yesterday which she suspects may have been laced with something. She has been acting oddly ever since. They also reported that she had made a statement threatening to jump out of her window. However it appears the patient denied this when asked in the ED. It is reported that she has not drank alcohol in 3 years. Upon presentation to the ED she was somewhat belligerent. While she was being worked up in the ED she had a seizure. This was followed by another seizure 20 minutes later. As a result her mental status was altered and she had a GCS of 6. Consequently she was intubated and presented for admission. Work-up included CBC and BMP. Of note was a white blood cell count of 13.6 and a potassium level of 2.7. CT scan of the brain was unremarkable. 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 She has 24+ pack year history. It is reported that she has not drank in 3 years. She has a history of alcohol abuse. Her UDS was positive for marijuana. It appears she uses other recreational substances which are unspecified at the moment. - POLST Patient has POLST: No POLST Status: Full Code Meds/Allgy - Home Medications Home Medications: Ambulatory Orders Medication Instructions Recorded Confirmed Acetaminophen [Tylenol] 325 mg PO QID PRN 02/01/17 02/01/17 Citalopram Hydrobromide 10 mg PO DAILY 02/01/17 05/07/17 [Citalopram HBr] Ferrous Sulfate 324 mg PO BID 02/01/17 05/07/17 Folic Acid 1 mg PO DAILY 02/01/17 05/07/17 Furosemide 20 mg PO DAILY 02/01/17 05/07/17 Mirtazapine 15 mg PO DAILY 02/01/17 05/07/17 Pramipexole [Mirapex] 0.125 mg PO DAILY 02/01/17 05/07/17 Oxycodone HCl/Acetaminophen 1 - 2 each PO Q6H PRN #15 tablet 05/07/17 [Percocet 5-325 mg Tablet] buprenorphine HCL [Buprenorphine 16 mg SL DAILY 05/07/17 05/07/17 HCl] dexAMETHasone [Decadron] 4 mg PO DAILY #5 tablet 05/07/17 Morphine ER 15 mg PO DAILY 03/11/20 03/11/20 - Allergies Allergies/Adverse Reactions: Allergies Allergy/AdvReac Type Severity Reaction Status Date / Time aspirin AdvReac Nausea Verified 01/05/17 12:21 NSAIDS (Non-Steroidal AdvReac Nausea Verified 01/05/17 12:21 Anti-Inflamma Review of Systems - All Other Systems All Other Systems: reports: Other (Review of system is currently limited because the patient is sedated and intubated.) Prior Level of Functionality: She is normally independent of activities of daily living Exam - Vital Signs Vital Signs: Vital Signs x48h Temp Pulse Resp BP Pulse Ox 03/11/20 21:04 89 16 107/60 100 03/11/20 20:45 90 15 102/63 100 03/11/20 20:42 105 H 15 134/73 H 98 03/11/20 20:33 117 H 29 H 140/125 H 99 03/11/20 20:17 116 H 23 151/71 H 100 03/11/20 20:08 119 H 16 165/91 H 100 03/11/20 19:36 100 15 142/74 H 100 03/11/20 19:32 101 H 03/11/20 19:31 10 L 15 123/65 100 03/11/20 19:22 104 H 20 152/77 H 97 03/11/20 17:44 36 C L 129 H 20 145/110 H 100 - Physical Exam General Appearance: positive: No acute distress, Other (sedated and intubated) Eyes Bilateral: positive: PERRL (but sluggish response), EOMI ENT: positive: Dry mucous membranes Neck: positive: No JVD, Trachea midline Respiratory: positive: Chest non-tender, No respiratory distress, Breath sounds nml. negative: Wheezes, Rales, Rhonchi Cardiovascular: positive: Regular rate & rhythm, No murmur Abdomen: positive: Non-tender, No distention. negative: Guarding, Rebound Back: positive: Nml inspection Skin: positive: Color nml, No rash, Dry, Other (extremities cold to touch) Extremities: positive: Nml appearance, No pedal edema Neurologic/Psychiatric: positive: Other (Sedated and intubated) Conclusion/Plan - Problem List (1) Seizure Conclusion/Plan: Etiology undetermined ?2/2 Alcohol withdrawal vs unspecified recreational substance CT brain without contrast was unremarkable. Patient is currently intubated and sedated with propofol. CIWA protocol has been ordered. (2) Altered mental status Conclusion/Plan: Likely 2/2 seizure. Cannot rule out a drug overdose Patient currently sedated and intubated. (3) HTN (hypertension) Conclusion/Plan: Concern at this time would be for hypotension considering patient is sedated. However if patient becomes hypertensive with a systolic blood pressure greater than 160 we will order as needed Hydralazine on labetalol IV (4) Depressive disorder Conclusion/Plan: Patient has been on citalopram in the past. We resume once verified. It is reported that patient expressed suicidal ideations. 1:1 observation ordered. Will consult social work to see the patient once she has been extubated - Lab Results Fish Bones: 03/11/20 18:21 03/11/20 18:21 Core Measures - Anticipated LOS I expect patient to be DC'd or transferred within 96 hours.: Yes - DVT/VTE - Prophylaxis VTE/DVT Device ordered at admit?: Yes
[2020-03-11 21:14] LABS: ABG BASE EXCESS -3.6 mmol/L (-2.0-3.0); ABG HCO3 21.6 mmol/L (22.0-26.0); ABG OXYGEN SATURATION 99 % (94-98); ABG PCO2 40 mmHg (34-45); ABG PH 7.35 (7.35-7.45); ABG PO2 345 mmHg (80-100); ABG TCO2 22.9 MMOL/L (21.0-29.0); ALLEN TEST POSITIVE
[2020-03-11] MEDS ORDERED: ROCURONIUM 50 MG/5 ML VIAL IVP ONE (21:23)
[2020-03-11] MEDS ORDERED: PROPOFOL 200 MG/20 ML VIAL IVP ONE (21:24)
[2020-03-11] MEDS: PROPOFOL 500 MG/50 ML 500 MG/50 ML VIAL IV SCH ×3 (22:07→23:13)
[2020-03-11] MEDS: POTASSIUM CHLOR 10 MEQ/100 ML 10 MEQ/100 ML BAG IV SCH ×2 (22:08→22:59)
[2020-03-11] MEDS ORDERED: MULTIVITAMIN 10 ML, THIAMINE INJ 100 MG, FOLIC ACID INJ 1 MG in SODIUM CHLORIDE 0.9% 1,... IV SCH (22:30)
[2020-03-11] MEDS: CHLORHEXIDINE GLUCONATE 15 ML UDC PO SCH (23:43)
[2020-03-11] MEDS: DEXTROSE 5%-0.9% NACL 1,000 ML IV SCH (23:47)
[2020-03-12] MEDS: SODIUM CHLORIDE FLUSH 0.9% 10 ML SYRINGE IVP PRN ×6 (00:03→20:24)
[2020-03-12] MEDS: POTASSIUM CHLOR 10 MEQ/100 ML 10 MEQ/100 ML BAG IV SCH ×4 (00:03→03:12)
[2020-03-12] MEDS: SODIUM CHLORIDE FLUSH 0.9% 10 ML SYRINGE IVP SCH ×3 (00:03→16:49)
[2020-03-12] MEDS: PROPOFOL 500 MG/50 ML 500 MG/50 ML VIAL IV SCH ×7 (01:44→22:51)
[2020-03-12 05:14] LABS: BASOPHILS % (AUTO) 0.2 %; EOSINOPHILS # (AUTO) 0.1 10^3/uL (0.0-0.7); EOSINOPHILS % (AUTO) 0.5 %; HGB - HEMOGLOBIN 11.7 g/dL (12.0-16.0); LYMPHOCYTES # (AUTO) 1.7 10^3/uL (1.5-3.5); LYMPHOCYTES % (AUTO) 11.5 %; MEAN CORPUSCULAR HEMOGLOBIN 32.9 pg (27.0-31.0); MEAN CORPUSCULAR HGB CONC 34.4 g/dL (32.0-36.0); MEAN CORPUSCULAR VOLUME 95.5 fL (81.0-99.0); MEAN PLATELET VOLUME 8.4 fL (7.9-10.8); MONOCYTES # (AUTO) 1.3 10^3/uL (0.0-1.0); MONOCYTES % (AUTO) 8.8 %; NEUTROPHILS # (AUTO) 11.6 10^3/uL (1.5-6.6); NEUTROPHILS % (AUTO) 78.5 %; PLT - PLATELET COUNT 230 10^3/uL (130-450); RED BLOOD COUNT 3.56 10^6/uL (4.20-5.40); RED CELL DISTRIBUTION WIDTH 12.6 % (12.0-15.0); WHITE BLOOD COUNT 14.8 x10^3/uL (4.8-10.8)
[2020-03-12 05:24] LABS: CALCIUM 7.9 mg/dL (8.5-10.3); CREATININE 0.6 mg/dL (0.4-1.0); MAGNESIUM 2.6 mg/dL (1.7-2.8)
[2020-03-12 05:25] LABS: ABG HCO3 24.8 mmol/L (22.0-26.0); ABG OXYGEN SATURATION 98 % (94-98); ABG PCO2 41 mmHg (34-45); ABG PO2 125 mmHg (80-100); ABG TCO2 26.1 MMOL/L (21.0-29.0); ALLEN TEST POSITIVE
[2020-03-12 06:14] LABS: VBG PH 7.385 (7.31-7.41)
[2020-03-12] MEDS: PANTOPRAZOLE 40 MG VIAL IVP SCH (06:28)
[2020-03-12] MEDS: LORazepam 2 MG/ML VIAL IVP PRN ×2 (06:30→20:24)
[2020-03-12] MEDS ORDERED: POTASSIUM PHOSPHATE 15 MMOL in SODIUM CHLORIDE 0.9% 250 ML IV ONE (07:00)
[2020-03-12] MEDS: DEXTROSE 5%-0.9% NACL 1,000 ML IV SCH ×3 (07:36→23:03)
[2020-03-12] MEDS ORDERED: SODIUM CHLORIDE INHALATION 3 ML NEB ONE (07:43)
--- NOTE | 2020-03-12 07:46 | PHARMACY PROGRESS NOTE ---
- Best Possible Medication History Admit Date and Time: 03/11/202051 Processed by: Pharmacy Medication History completed: Yes Patient Interview: Pt unable to participate Secondary Source(s): Physician records, Pharmacy records, Insurance records As the person ultimately responsible for medication therapy, providers are able to order a medication from an existing home medication list in [facility] via the "Reconcile Routine" prior to Confirmation of that medication by network and threat support specialist. Such practice is discouraged except when the physician, in their clinical judgment, deems that a medical need exists for a medication without regard to previous use.
[2020-03-12] MEDS: CHLORHEXIDINE GLUCONATE 15 ML UDC PO SCH ×2 (08:38→19:59)
[2020-03-12] MEDS: MULTIVITAMIN 10 ML, THIAMINE INJ 100 MG, FOLIC ACID INJ 1 MG in SODIUM CHLORIDE 0.9% 1,... IV SCH (08:44)
[2020-03-12] MEDS ORDERED: MULTIVITAMIN 10 ML, THIAMINE INJ 100 MG, FOLIC ACID INJ 1 MG in SODIUM CHLORIDE 0.9% 1,... IV SCH (09:00)
[2020-03-12] MEDS ORDERED: polyethylene glycoL 3350 17 GM PACKET PO SCH (09:00)
[2020-03-12] MEDS ORDERED: THIAMINE 100 MG TABLET PO SCH (09:00)
[2020-03-12] MEDS ORDERED: PRENATAL VITAMIN TABLET PO SCH (09:00)
--- NOTE | 2020-03-12 11:49 | PROVIDER PROGRESS NOTE ---
Assessment/Plan - Problem List (1) Fever Assessment/Plan: Suspected temperature of 38.2 centigrade midday. Urinalysis, blood cultures, sputum cultures and a chest x-ray were ordered. The chest x-ray shows "worsening bibasilar consolidation". We will start her on treatment empirically with IV Zithromax and IV ceftriaxone for community-acquired pneumonia and isolation precautions and a COVID swab. (2) Seizure Assessment/Plan: She had 2 witnessed seizures, 20 minutes apart in the ER. She received IV Ativan. It is unclear if this is a new seizure disorder or if she had seizures from alcohol withdrawal. There had been a history of alcohol abuse but she apparently stopped alcohol dependence 3 years ago. It is unknown if this is in fact true (3) Respiratory failure Qualifiers: Chronicity: acute Respiratory failure complication: unspecified whether with hypoxia or hypercapnia Qualified Code(s): J96.00 - Acute respiratory failure, unspecified whether with hypoxia or hypercapnia Assessment/Plan: She required intubation and the ventilator after she received Ativan for the seizures. Will try to wean down the propofol (if chest x-ray shows no new pneumonia) and then get weaning parameters and try to extubate later today. (4) Suicidal ideation Assessment/Plan: This was heard on presentation. One-to-one precautions have been ordered, however she is currently sedated on IV propofol. She will need social work evaluation when awake and stabilized. (5) Drug overdose Qualifiers: Encounter type: initial encounter Injury intent: undetermined intent Qualified Code(s): T50.904A - Poisoning by unspecified drugs, medicaments and biological substances, undetermined, initial encounter Assessment/Plan: As per history. Social work evaluation will be pending (6) History of alcohol abuse Assessment/Plan: Since it is unclear if she still has alcohol abuse, she is being managed with an IV banana bag containing vitamins and daily thiamine - Current Meds Current Meds: Current Medications Generic Name Dose Route Start Last Admin Trade Name Freq PRN Reason Stop Dose Admin Chlorhexidine Gluconate 15 ml 03/11/20 23:00 03/12/20 08:38 Peridex PO 15 ml BID BETTIE Administration Multivitamins 10 ml/ Thiamine 1,011.2 mls @ 100 mls/hr 03/12/20 09:00 03/12/20 08:44 HCl 100 mg/ Folic Acid 1 mg/ IV 100 mls/hr Sodium Chloride DAILY BETTIE Administration Dextrose/Sodium Chloride 1,000 mls @ 125 mls/hr 03/11/20 23:00 03/12/20 08:44 D5ns IV 0 mls/hr .Q8H BETTIE Infusion Propofol 500 mg in 50 mls @ 2.91 mls/hr 03/11/20 22:52 03/12/20 11:46 Diprivan IV 40 mcg/kg/min .[id number] BETTIE 11.64 mls/hr Administration Protocol 10 MCG/KG/MIN Lorazepam 1 mg 03/11/20 21:03 03/12/20 06:30 Ativan Inj (Vial) IVP 1 mg Q1H PRN Administration CIWA >8 Protocol Pantoprazole Sodium 40 mg 03/12/20 07:00 03/12/20 06:28 Protonix IVP 40 mg QDAC BETTIE Administration Sodium Chloride 10 ml 03/12/20 01:00 03/12/20 08:47 Normal Saline Flush 0.9% IVP 10 ml 0100,0900,1700 BETTIE Administration Sodium Chloride 10 ml 03/11/20 20:52 03/12/20 06:28 Normal Saline Flush 0.9% IVP 10 ml PRN PRN Administration NEEDED PER PROVIDER ORDERS Sodium Chloride 20 ml 03/11/20 23:40 03/12/20 05:34 Normal Saline Flush 0.9% IVP 20 ml PRN PRN Administration After Blood Draw - Lab Result Fish Bone Diagrams: 03/12/20 05:00 03/12/20 05:00 - Additional Planning My Orders: My Active Orders 03/12/20 CUL, RESPIRATORY [RM] Urgent CULTURE, BLOOD #1 [RM] Stat UA w/ MICROSCOPIC, CULT IF [URIN] Urgent 03/12/20 11:16 Chest 1 View X-Ray [XR] Stat 03/12/20 11:18 Cyclobenzaprine [Flexeril] 10 mg PO TID PRN 03/12/20 11:32 HYDROmorphone (VIAL) [Dilaudid (Vial)] 2 mg IVP Q4H PRN 03/12/20 12:00 Acetaminophen 1,000 mg/100 ml [Ofirmev] 100 ml IV Q6HR Calcium Gluconate 1,000 mg Sodium Chloride 0.9% [Normal Saline 0.9%] 50 ml IV ONCE Nicotine 14 mg Patch [Nicoderm] 1 patch TOP DAILY buPROPion [Wellbutrin Xl] 300 mg PO DAILY Subjective - Subjective Nursing Reports: Sedated, Other (With any stimulation she is slightly agitated and occasionally tries pulling out her ET tube, He does follow commands and squeeze hands for the nurse) Objective Vital Signs: Vital Signs - 24 hr 03/11/20 03/11/20 03/11/20 17:44 19:22 19:31 Temperature 36 C L Heart Rate 129 H 104 H 10 L Heart Rate [ Monitoring electrodes] Respiratory 20 20 15 Rate Blood Pressure 145/110 H 152/77 H 123/65 Blood Pressure [Right Brachial artery] O2 Saturation 100 97 100 03/11/20 03/11/20 03/11/20 19:32 19:36 20:08 Temperature Heart Rate 101 H 100 119 H Heart Rate [ Monitoring electrodes] Respiratory 15 16 Rate Blood Pressure 142/74 H 165/91 H Blood Pressure [Right Brachial artery] O2 Saturation 100 100 03/11/20 03/11/20 03/11/20 20:17 20:33 20:42 Temperature Heart Rate 116 H 117 H 105 H Heart Rate [ Monitoring electrodes] Respiratory 23 29 H 15 Rate Blood Pressure 151/71 H 140/125 H 134/73 H Blood Pressure [Right Brachial artery] O2 Saturation 100 99 98 03/11/20 03/11/20 03/11/20 20:45 21:04 21:13 Temperature Heart Rate 90 89 87 Heart Rate [ Monitoring electrodes] Respiratory 15 16 16 Rate Blood Pressure 102/63 107/60 102/56 L Blood Pressure [Right Brachial artery] O2 Saturation 100 100 100 03/11/20 03/11/20 03/11/20 21:18 21:52 21:53 Temperature 36.5 C Heart Rate 86 108 H Heart Rate [ 101 H Monitoring electrodes] Respiratory 16 20 22 Rate Blood Pressure 103/57 L 147/80 H Blood Pressure 149/80 H [Right Brachial artery] O2 Saturation 100 100 100 03/11/20 03/11/20 03/11/20 21:58 22:01 22:30 Temperature Heart Rate 97 Heart Rate [ 88 88 Monitoring electrodes] Respiratory 16 16 Rate Blood Pressure Blood Pressure 116/62 126/56 L [Right Brachial artery] O2 Saturation 100 100 03/11/20 03/12/20 03/12/20 23:00 00:00 00:34 Temperature Heart Rate 86 Heart Rate [ 85 86 Monitoring electrodes] Respiratory 16 16 Rate Blood Pressure Blood Pressure 99/54 L 96/53 L [Right Brachial artery] O2 Saturation 100 100 03/12/20 03/12/20 03/12/20 00:49 01:00 02:00 Temperature 36.1 C L Heart Rate Heart Rate [ 101 H 86 Monitoring electrodes] Respiratory 21 16 Rate Blood Pressure Blood Pressure 128/64 97/55 L [Right Brachial artery] O2 Saturation 100 100 03/12/20 03/12/20 03/12/20 02:23 02:52 03:00 Temperature 36.2 C L Heart Rate 86 Heart Rate [ 84 Monitoring electrodes] Respiratory 16 Rate Blood Pressure Blood Pressure 97/60 [Right Brachial artery] O2 Saturation 100 03/12/20 03/12/20 03/12/20 04:00 05:00 05:01 Temperature Heart Rate 104 H Heart Rate [ 86 82 Monitoring electrodes] Respiratory 16 16 Rate Blood Pressure Blood Pressure 89/54 L 100/63 [Right Brachial artery] O2 Saturation 100 100 03/12/20 03/12/20 03/12/20 06:00 07:00 07:43 Temperature Heart Rate 95 Heart Rate [ 84 93 Monitoring electrodes] Respiratory 16 21 Rate Blood Pressure Blood Pressure 110/54 L 113/70 [Right Brachial artery] O2 Saturation 100 100 03/12/20 03/12/20 03/12/20 08:00 09:00 10:00 Temperature 38.2 C H Heart Rate Heart Rate [ 94 89 84 Monitoring electrodes] Respiratory 16 17 19 Rate Blood Pressure Blood Pressure 90/59 L 99/63 116/67 [Right Brachial artery] O2 Saturation 99 100 100 03/12/20 03/12/20 10:37 11:00 Temperature Heart Rate 84 Heart Rate [ 85 Monitoring electrodes] Respiratory 16 Rate Blood Pressure Blood Pressure 101/59 L [Right Brachial artery] O2 Saturation 100 Oxygen O2 Source [With Activity] Nasal cannula O2 Source [Without Activity] Nasal cannula O2 Source Mechanical ventilator I&O (Last 24 Hrs): Intake and Output Totals x24h 03/10/20 03/11/20 03/12/20 23:59 23:59 23:59 Intake Total 0497.439 9102.697 Output Total 635 1185 Balance 796.314 905.697 General: Other (sedated) HEENT: Other (ET tube and ng in place) Neck: Supple Neuro: Other (sedated) Cardiovascular: Regular rate Respiratory: Other (On vent) Abdomen: Soft Extremities: No edema Skin: No rashes - Results Results: Laboratory Results WBC 14.8 x10^3/uL (4.8-10.8) H 03/12/20 05:00 RBC 3.56 10^6/uL (4.20-5.40) L 03/12/20 05:00 Hgb 11.7 g/dL (12.0-16.0) L 03/12/20 05:00 Hct 34.0 % (37.0-47.0) L 03/12/20 05:00 MCV 95.5 fL (81.0-99.0) 03/12/20 05:00 MCH 32.9 pg (27.0-31.0) H 03/12/20 05:00 MCHC 34.4 g/dL (32.0-36.0) 03/12/20 05:00 RDW 12.6 % (12.0-15.0) 03/12/20 05:00 Plt Count 230 10^3/uL (130-450) 03/12/20 05:00 MPV 8.4 fL (7.9-10.8) 03/12/20 05:00 Neut # (Auto) 11.6 10^3/uL (1.5-6.6) H 03/12/20 05:00 Lymph # (Auto) 1.7 10^3/uL (1.5-3.5) 03/12/20 05:00 [place] # (Auto) 1.3 10^3/uL (0.0-1.0) H 03/12/20 05:00 Eos # (Auto) 0.1 10^3/uL (0.0-0.7) 03/12/20 05:00 Baso # (Auto) 0.0 10^3/uL (0.0-0.1) 03/12/20 05:00 Absolute Nucleated RBC 0.00 x10^3/uL 03/12/20 05:00 Nucleated RBC % 0.0 /100WBC 03/12/20 05:00 Bld Gas Analysis Time 52303/12/20 05:16 Sample Site RIGHT RADIAL 03/12/20 05:16 ABG pH 7.40 (7.35-7.45) 03/12/20 05:16 ABG pCO2 41 mmHg (34-45) 03/12/20 05:16 ABG pO2 125 mmHg (80-100) H 03/12/20 05:16 ABG HCO3 24.8 mmol/L (22.0-26.0) 03/12/20 05:16 ABG Total CO2 26.1 MMOL/L (21.0-29.0) 03/12/20 05:16 ABG O2 Saturation 98 % (94-98) 03/12/20 05:16 ABG Base Excess 0.0 mmol/L (-2.0-3.0) 03/12/20 05:16 Ovidio Test POSITIVE 03/12/20 05:16 VBG pH 7.385 (7.31-7.41) 03/12/20 05:40 Ionized Calcium 1.10 mmol/L (1.15-1.33) L 03/12/20 05:40 Respiration Rate 16 b/min 03/12/20 05:16 O2 Delivery Device VENTILATOR 03/12/20 05:16 Vent Mode SIMV 03/12/20 05:16 FiO2 40.00 03/12/20 05:16 Tidal Volume 450 mL 03/12/20 05:16 PEEP 5 cmH2O 03/12/20 05:16 Pressure Support Vent 10 cmH2O 03/12/20 05:16 EPAP 0 cmH2O 03/11/20 21:00 IPAP 0 cmH2O 03/11/20 21:00 Sodium 135 mmol/L (135-145) 03/12/20 05:00 Potassium 3.6 mmol/L (3.5-5.0) 03/12/20 05:00 Chloride 102 mmol/L (101-111) 03/12/20 05:00 Carbon Dioxide 26 mmol/L (21-32) 03/12/20 05:00 Anion Gap 7.0 (6-13) 03/12/20 05:00 BUN 10 mg/dL (6-20) 03/12/20 05:00 Creatinine 0.6 mg/dL (0.4-1.0) 03/12/20 05:00 Estimated GFR (MDRD) 101 (>89) 03/12/20 05:00 Glucose 171 mg/dL (70-100) H 03/12/20 05:00 Calcium 7.9 mg/dL (8.5-10.3) L 03/12/20 05:00 Phosphorus 1.9 mg/dL (2.5-4.6) L 03/12/20 05:00 Magnesium 2.6 mg/dL (1.7-2.8) 03/12/20 05:00 Total Bilirubin 0.7 mg/dL (0.2-1.0) 03/11/20 18:21 AST 41 IU/L (10-42) 03/11/20 18:21 ALT 32 IU/L (10-60) 03/11/20 18:21 Alkaline Phosphatase 107 IU/L (42-121) 03/11/20 18:21 Total Protein 7.4 g/dL (6.7-8.2) 03/11/20 18:21 Albumin 3.3 g/dL (3.2-5.5) 03/12/20 05:00 Globulin 3.2 g/dL (2.1-4.2) 03/11/20 18:21 Albumin/Globulin Ratio 1.3 (1.0-2.2) 03/11/20 18:21 Lipase 19 U/L (22-51) L 03/11/20 18:21 TSH 1.12 uIU/mL (0.34-5.60) 03/11/20 18:21 Urine Color YELLOW 03/11/20 20:50 Urine Clarity CLEAR (CLEAR) 03/11/20 20:50 Urine pH 6.5 PH (5.0-7.5) 03/11/20 20:50 Ur Specific [place] >=1.030 (1.002-1.030) H 03/11/20 20:50 Urine Protein NEGATIVE mg/dL (NEGATIVE) 03/11/20 20:50 Urine Glucose (UA) NEGATIVE mg/dL (NEGATIVE) 03/11/20 20:50 Urine Ketones 40 mg/dL (NEGATIVE) H 03/11/20 20:50 Urine Occult Blood MODERATE (NEGATIVE) H 03/11/20 20:50 Urine Nitrite NEGATIVE (NEGATIVE) 03/11/20 20:50 Urine Bilirubin NEGATIVE (NEGATIVE) 03/11/20 20:50 Urine Urobilinogen 0.2 (NORMAL) E.U./dL (NORMAL) 03/11/20 20:50 Ur Leukocyte Esterase NEGATIVE (NEGATIVE) 03/11/20 20:50 Urine RBC 0-5 /HPF (0-5) 03/11/20 20:50 Urine WBC 0-3 /HPF (0-5) 03/11/20 20:50 Ur Squamous Epith Cells NONE SEEN (<= Few) 03/11/20 20:50 Urine Bacteria None Seen /HPF (None Seen) 03/11/20 20:50 Ur Microscopic Review INDICATED 03/11/20 20:50 Urine Culture Comments NOT INDICATED 03/11/20 20:50 Nasal Screen MRSA (PCR) NEGATIVE (NEGATIVE) 03/11/20 21:45 Salicylates < 6.0 mg/dL 03/11/20 18:21 Urine Opiates Screen NEGATIVE (NEGATIVE) 03/11/20 20:50 Ur Oxycodone Screen POSITIVE (NEGATIVE) H 03/11/20 20:50 Urine Methadone Screen NEGATIVE (NEGATIVE) 03/11/20 20:50 Ur Propoxyphene Screen NEGATIVE (NEGATIVE) 03/11/20 20:50 Acetaminophen < 10 ug/mL (10-30) L 03/11/20 18:21 Ur Barbiturates Screen NEGATIVE (NEGATIVE) 03/11/20 20:50 Ur Tricyclics Screen POSITIVE (NEGATIVE) H 03/11/20 20:50 Ur Phencyclidine Scrn NEGATIVE (NEGATIVE) 03/11/20 20:50 Ur Amphetamine Screen NEGATIVE (NEGATIVE) 03/11/20 20:50 U Methamphetamines Scrn NEGATIVE (NEGATIVE) 03/11/20 20:50 U Benzodiazepines Scrn NEGATIVE (NEGATIVE) 03/11/20 20:50 Urine Cocaine Screen NEGATIVE (NEGATIVE) 03/11/20 20:50 U Cannabinoids Screen POSITIVE (NEGATIVE) H 03/11/20 20:50 Ethyl Alcohol < 5.0 mg/dL 03/11/20 18:21 - Procedures Procedures: Procedures COLONOSCOPY (11/01/14) ESOPHAGOGASTRODUODENOSCOPY [EGD] W/CLOSED BIOPSY (11/01/14) EXCISION OF DUODENUM, ENDO, DIAGN (05/14/16) EXCISION OF STOMACH, ENDO, DIAGN (07/30/16) EXCISION OF STOMACH, PYLORUS, ENDO, DIAGN (06/27/16) INSERT INFUSION DEV IN R INT JUGULAR VEIN, PERC (07/30/16) INSERTION OF INFUSION DEV INTO SUP VENA CAVA, PERC APPROACH (10/26/15) INSPECTION OF LOWER INTESTINAL TRACT, ENDO (07/30/16) ULTRASONOGRAPHY OF RIGHT JUGULAR VEINS, GUIDANCE (07/30/16) VENOUS CATHETERIZATION NEC (03/23/15)
[2020-03-12] MEDS ORDERED: CALCIUM GLUCONATE 1,000 MG in SODIUM CHLORIDE 0.9% 50 ML IV ONE (12:00)
[2020-03-12] MEDS ORDERED: ACETAMINOPHEN 1,000 MG/100 ML 100 ML IV PRN (12:00)
[2020-03-12] MEDS: buPROPion XL 150 MG TABLET PO SCH (12:16)
[2020-03-12] MEDS: NICOTINE 14 MG PATCH TOP SCH (12:16)
--- NOTE | 2020-03-12 12:31 | XRAY Report ---
Reason: Fever, on vent, eval for pneumonia Procedure Date: 03/12/2020 Accession Number: [id number] / [id number] Procedure: XR - Chest 1 View X-Ray CPT Code: 88752 Final Report FULL RESULT: EXAM: CHEST RADIOGRAPHY EXAM DATE: 03/12/2020 12:04 PM. CLINICAL HISTORY: Fever, on ventilator, evaluate for pneumonia. COMPARISON: CHEST FOR LINE PLACEMENT 03/11/2020 8:24 PM. TECHNIQUE: 1 view. FINDINGS: Lungs/Pleura: Vascular congestion with progression. Slight increase in bibasilar opacities. No pneumothorax. Mediastinum: Heart size and mediastinal contour are stable. Other: ET tube again seen with the tip 3 cm from the gordon. Right IJ catheter and orogastric tube again seen with slightly more redundancy of the orogastric tube with the tip in the medial proximal stomach. Changes again seen from thoracic/lumbar fusion partly included. IMPRESSION: 1. Progression of vascular congestion. 2. Slight progression of bibasilar consolidation/atelectasis. RADIA
[2020-03-12 12:41] LABS: BILIRUBIN,URINE NEGATIVE (NEGATIVE); GLUCOSE, URINE (UA) NEGATIVE (NEGATIVE); KETONES,URINE (UA) 15 mg/dL (NEGATIVE); LEUKOCYTE ESTERASE, URINE SMALL (NEGATIVE); NITRITE,URINE NEGATIVE (NEGATIVE); OCCULT BLOOD,URINE LARGE (NEGATIVE); PH,URINE 6.5 PH (5.0-7.5); PROTEIN,URINE NEGATIVE (NEGATIVE); UROBILINOGEN,URINE 0.2 (NORMAL) E.U./dL (NORMAL)
[2020-03-12 12:44] LABS: CLARITY,URINE HAZY (CLEAR)
[2020-03-12 12:55] LABS: BACTERIA,URINE Rare /HPF (None Seen); RBC,URINE TNTC /HPF (0-5); SQUAMOUS EPITHELIAL CELL,UR RARE Squamous (<= Few)
[2020-03-12] MEDS: cefTRIAXone 2 GM in SODIUM CHLORIDE 0.9% MINIBAG 100 ML IV SCH (14:17)
[2020-03-12] MEDS: HYDROmorphone 2 MG/ML VIAL IVP PRN ×2 (14:21→20:00)
[2020-03-12] MEDS: AZITHROMYCIN INJ 500 MG in SODIUM CHLORIDE 0.9% 250 ML IV SCH (14:56)
[2020-03-13] MEDS: HYDROmorphone 2 MG/ML VIAL IVP PRN ×5 (00:28→22:41)
[2020-03-13] MEDS: SODIUM CHLORIDE FLUSH 0.9% 10 ML SYRINGE IVP SCH ×3 (00:28→16:13)
[2020-03-13] MEDS: DEXTROSE 5%-0.9% NACL 1,000 ML IV SCH ×4 (00:34→23:50)
[2020-03-13] MEDS: PROPOFOL 500 MG/50 ML 500 MG/50 ML VIAL IV SCH ×4 (01:53→09:31)
[2020-03-13] MEDS: LORazepam 2 MG/ML VIAL IVP PRN (03:35)
[2020-03-13] MEDS: SODIUM CHLORIDE FLUSH 0.9% 10 ML SYRINGE IVP PRN ×4 (03:48→05:45)
[2020-03-13] MEDS: PANTOPRAZOLE 40 MG VIAL IVP SCH (05:46)
[2020-03-13 06:06] LABS: VBG PH 7.325 (7.31-7.41)
[2020-03-13 06:09] LABS: BASOPHILS % (AUTO) 0.4 %; EOSINOPHILS # (AUTO) 0.1 10^3/uL (0.0-0.7); EOSINOPHILS % (AUTO) 1.1 %; HGB - HEMOGLOBIN 10.8 g/dL (12.0-16.0); LYMPHOCYTES # (AUTO) 1.1 10^3/uL (1.5-3.5); LYMPHOCYTES % (AUTO) 9.8 %; MEAN CORPUSCULAR HEMOGLOBIN 33.4 pg (27.0-31.0); MEAN CORPUSCULAR VOLUME 98.5 fL (81.0-99.0); MEAN PLATELET VOLUME 8.8 fL (7.9-10.8); MONOCYTES # (AUTO) 0.9 10^3/uL (0.0-1.0); MONOCYTES % (AUTO) 7.8 %; NEUTROPHILS # (AUTO) 8.7 10^3/uL (1.5-6.6); NEUTROPHILS % (AUTO) 80.3 %; PLT - PLATELET COUNT 218 10^3/uL (130-450); RED BLOOD COUNT 3.23 10^6/uL (4.20-5.40); WHITE BLOOD COUNT 10.9 x10^3/uL (4.8-10.8)
[2020-03-13 06:22] LABS: ALBUMIN 2.8 g/dL (3.2-5.5); CALCIUM 7.8 mg/dL (8.5-10.3); CREATININE 0.5 mg/dL (0.4-1.0); MAGNESIUM 2.1 mg/dL (1.7-2.8); PHOSPHORUS 1.7 mg/dL (2.5-4.6)
[2020-03-13] MEDS ORDERED: POTASSIUM PHOSPHATE 15 MMOL in SODIUM CHLORIDE 0.9% 250 ML IV ONE (06:37)
[2020-03-13] MEDS ORDERED: POTASSIUM CHLORIDE 20 MEQ/15 ML UDC PO ONE (06:37)
[2020-03-13] MEDS: CHLORHEXIDINE GLUCONATE 15 ML UDC PO SCH (08:17)
[2020-03-13] MEDS: buPROPion XL 150 MG TABLET PO SCH (08:21)
[2020-03-13] MEDS: NICOTINE 14 MG PATCH TOP SCH (08:21)
--- NOTE | 2020-03-13 08:35 | XRAY Report ---
Reason: intubated, fever, ?pneumonia Procedure Date: 03/13/2020 Accession Number: [id number] / [id number] Procedure: XR - Chest 1 View X-Ray CPT Code: 46996 Final Report FULL RESULT: EXAM: CHEST RADIOGRAPHY EXAM DATE: 03/13/2020 08:20 AM. CLINICAL HISTORY: Post intubation with fever. Evaluate for possible pneumonia. COMPARISON: CHEST 1 VIEW 03/12/2020 11:35 AM. TECHNIQUE: 1 view. FINDINGS: Lungs/Pleura: Bibasilar opacities are present, suggestive of atelectasis versus infiltrate. Minimal central congestion noted. Mediastinum: Within exam limitations, the cardiomediastinal contour is normal. Other: Thoracolumbar fusion hardware is seen. Patient is intubated, with ET tube tip 2.1 cm above the gordon. An enteric tube is seen terminating in the stomach. Right-sided central venous catheter terminates at the cavoatrial junction. IMPRESSION: 1. Persistent bibasilar atelectasis versus infiltrate without gross consolidation. 2. Mild central congestion noted. 3. Lines and supporting devices as above. RADIA
[2020-03-13] MEDS: MULTIVITAMIN 10 ML, THIAMINE INJ 100 MG, FOLIC ACID INJ 1 MG in SODIUM CHLORIDE 0.9% 1,... IV SCH (08:56)
[2020-03-13] MEDS ORDERED: ONDANSETRON ODT 4 MG TABLET PO PRN (11:01)
[2020-03-13] MEDS ORDERED: PHENOL THROAT SPRAY 177 ML MM PRN (11:45)
[2020-03-13] MEDS: cefTRIAXone 2 GM in SODIUM CHLORIDE 0.9% MINIBAG 100 ML IV SCH (12:21)
[2020-03-13] MEDS: AZITHROMYCIN INJ 500 MG in SODIUM CHLORIDE 0.9% 250 ML IV SCH (13:00)
[2020-03-13] MEDS: ACETAMINOPHEN 325 MG TABLET PO PRN (17:34)
--- NOTE | 2020-03-13 17:45 | PROVIDER PROGRESS NOTE ---
Assessment/Plan - Problem List (1) Fever Assessment/Plan: She spiked a fever again this afternoon. The a.m. CXR had shown slight improvement, the urine, spt and blood cx are pending with no growth to date. Continue empiric antibx. Follow CBC daily. (2) Seizure Assessment/Plan: No seizures since admission. The patient cannot remember arriving here, or the EMS call about taking a laced med or discussing suicide in the ER.. (3) Respiratory failure Qualifiers: Chronicity: acute Respiratory failure complication: unspecified whether with hypoxia or hypercapnia Qualified Code(s): J96.00 - Acute respiratory failure, unspecified whether with hypoxia or hypercapnia Assessment/Plan: She had a slightly improved CXR, this her Propofol was weaned to off and with excellent NIF of -35, she was successfully extubated that mid day. She is tolerating a diet. Remain on empric antibx for CAP. COVID result still pending, was taken yesterday. Continue isolation. (4) Suicidal ideation Assessment/Plan: 1:1 is underway, especially since she was extubated and is no longer on a propofol drip. She will probably be medically clear for mental health eval tomorrow. (5) Drug overdose Qualifiers: Encounter type: initial encounter Injury intent: undetermined intent Qualified Code(s): T50.904A - Poisoning by unspecified drugs, medicaments and biological substances, undetermined, initial encounter Assessment/Plan: She cannot remember the event. Her MUDS at admission showed positive tricyclics, cannabis and codeine. She will probably be medically clear for mental health eval tomorrow. (6) History of alcohol abuse Assessment/Plan: Banana bag was used, can be stopped. Will consider thiamine po. A CIWA protocol with prn Ativan is ordered. (7) Tobacco use Assessment/Plan: Nicotine patch daily started yesterday. (8) Anxiety Assessment/Plan: She was getting her meds per ng, now will continue po. (9) Hypokalemia Assessment/Plan: Replace. Follow BMP daily. (10) Hypophosphatemia Assessment/Plan: replace. Follow PO4 daily. (11) Anemia Assessment/Plan: Suspected to be hemodilutional since she is m(+) L in fluid balance since admission. Follow CBC daily. - Current Meds Current Meds: Current Medications Generic Name Dose Route Start Last Admin Trade Name Freq PRN Reason Stop Dose Admin Acetaminophen 650 mg 03/13/20 17:04 03/13/20 17:34 Tylenol PO 650 mg Q4HR PRN Administration Pain or Fever > 38C (100.4F) Bupropion HCl 300 mg 03/12/20 12:00 03/13/20 08:21 Wellbutrin Xl PO 300 mg DAILY BETTIE Administration Heparin Sodium (Beef Lung) 30 - 50 unit 03/11/20 23:40 03/13/20 05:28 IVP 30 unit PRN PRN Administration Central Line Protocol (<24 hr) Hydromorphone HCl 2 mg 03/12/20 11:32 03/13/20 08:17 Dilaudid (Vial) IVP 2 mg Q4H PRN Administration PAIN Dextrose/Sodium Chloride 1,000 mls @ 125 mls/hr 03/11/20 23:00 03/13/20 08:59 D5ns IV Infused .Q8H BETTIE Infusion Azithromycin 500 mg/ Sodium 250 mls @ 250 mls/hr 03/12/20 14:00 03/13/20 1 4:05 Chloride IV Infused Q24H BETTIE Infusion Ceftriaxone Sodium 2 gm/ 100 mls @ 200 mls/hr 03/12/20 13:00 03/13/20 12:59 Sodium Chloride IV Infused Q24H BETTIE Infusion Lorazepam 1 mg 03/11/20 21:03 03/13/20 03:35 Ativan Inj (Vial) IVP 1 mg Q1H PRN Administration CIWA >8 Protocol Nicotine 1 patch 03/12/20 12:00 03/13/20 08:21 Nicoderm TOP 1 patch DAILY BETTIE Administration Sodium Chloride 10 ml 03/12/20 01:00 03/13/20 16:13 Normal Saline Flush 0.9% IVP 10 ml 0100,0900,1700 BETTIE Administration Sodium Chloride 10 ml 03/11/20 20:52 03/13/20 05:45 Normal Saline Flush 0.9% IVP 10 ml PRN PRN Administration NEEDED PER PROVIDER ORDERS Sodium Chloride 20 ml 03/11/20 23:40 03/13/20 05:28 Normal Saline Flush 0.9% IVP 20 ml PRN PRN Administration After Blood Draw - Lab Result Fish Bone Diagrams: 03/13/20 05:30 03/13/20 05:30 - Additional Planning My Orders: My Active Orders 03/13/20 08:41 Miscellaenous Nursing Order [RC] ONCE 03/13/20 11:00 oxyCODONE [Roxicodone] 15 mg PO Q6H PRN 03/13/20 11:01 Ondansetron Odt [Zofran Odt] 4 mg PO DAILY PRN traZODone [Desyrel] 50 mg PO QPM PRN 03/13/20 11:45 Phenol [Chloraseptic] 2 sprays MM Q2HR PRN 03/13/20 17:04 Acetaminophen [Tylenol] 650 mg PO Q4HR PRN 03/13/20 Dinner DIET [Soft Mechanical Diet] [DIET] 03/14/20 09:00 Thiamine [Vitamin B-1] 100 mg PO DAILY Objective Vital Signs: Vital Signs - 24 hr 03/12/20 03/12/20 03/12/20 18:00 19:00 19:30 Temperature Heart Rate 93 Heart Rate [ 95 91 Monitoring electrodes] Respiratory 16 16 Rate Blood Pressure [Left Brachial artery] Blood Pressure 113/74 105/65 [Right Brachial artery] O2 Saturation 98 99 03/12/20 03/12/20 03/12/20 19:31 20:00 21:00 Temperature 37.6 C H Heart Rate Heart Rate [ 90 91 Monitoring electrodes] Respiratory 16 16 Rate Blood Pressure [Left Brachial artery] Blood Pressure 102/59 L 101/56 L [Right Brachial artery] O2 Saturation 99 98 03/12/20 03/12/20 03/12/20 22:00 22:14 22:30 Temperature Heart Rate 86 Heart Rate [ 83 Monitoring electrodes] Respiratory 17 Rate Blood Pressure [Left Brachial artery] Blood Pressure 90/48 L 106/61 [Right Brachial artery] O2 Saturation 98 03/12/20 03/13/20 03/13/20 23:00 00:00 00:12 Temperature 37.2 C 37 C Heart Rate Heart Rate [ 83 85 Monitoring electrodes] Respiratory 17 17 Rate Blood Pressure [Left Brachial artery] Blood Pressure 104/64 100/59 L [Right Brachial artery] O2 Saturation 99 98 03/13/20 03/13/20 03/13/20 01:00 01:15 01:45 Temperature 36.6 C Heart Rate 82 Heart Rate [ 83 Monitoring electrodes] Respiratory 16 Rate Blood Pressure [Left Brachial artery] Blood Pressure 91/54 L [Right Brachial artery] O2 Saturation 99 03/13/20 03/13/20 03/13/20 02:00 03:00 03:30 Temperature Heart Rate 81 Heart Rate [ 78 77 Monitoring electrodes] Respiratory 16 16 Rate Blood Pressure [Left Brachial artery] Blood Pressure 92/58 L 93/57 L [Right Brachial artery] O2 Saturation 99 100 03/13/20 03/13/20 03/13/20 04:00 05:00 05:25 Temperature 36.5 C Heart Rate 90 Heart Rate [ 82 81 Monitoring electrodes] Respiratory 16 16 Rate Blood Pressure 109/63 113/65 [Left Brachial artery] Blood Pressure [Right Brachial artery] O2 Saturation 100 99 03/13/20 03/13/20 03/13/20 06:00 07:00 08:00 Temperature 36.8 C Heart Rate Heart Rate [ 91 88 92 Monitoring electrodes] Respiratory 20 17 23 Rate Blood Pressure 119/66 104/54 L 111/64 [Left Brachial artery] Blood Pressure [Right Brachial artery] O2 Saturation 99 98 98 03/13/20 03/13/20 03/13/20 09:00 09:06 10:00 Temperature 36.6 C Heart Rate 83 Heart Rate [ 82 88 Monitoring electrodes] Respiratory 17 17 Rate Blood Pressure 105/55 L 116/67 [Left Brachial artery] Blood Pressure [Right Brachial artery] O2 Saturation 98 99 03/13/20 03/13/20 03/13/20 11:00 12:00 14:00 Temperature 36.6 C Heart Rate Heart Rate [ 102 H 96 101 H Monitoring electrodes] Respiratory 26 H 17 18 Rate Blood Pressure 153/83 H 134/75 H 129/73 [Left Brachial artery] Blood Pressure [Right Brachial artery] O2 Saturation 100 98 95 03/13/20 03/13/20 03/13/20 15:00 15:40 16:00 Temperature 37.9 C H 38.1 C H Heart Rate Heart Rate [ 96 110 H Monitoring electrodes] Respiratory 18 20 Rate Blood Pressure 130/69 128/71 [Left Brachial artery] Blood Pressure [Right Brachial artery] O2 Saturation 94 92 03/13/20 17:00 Temperature Heart Rate Heart Rate [ 97 Monitoring electrodes] Respiratory 17 Rate Blood Pressure 129/79 [Left Brachial artery] Blood Pressure [Right Brachial artery] O2 Saturation 94 Oxygen O2 Source [With Activity] Nasal cannula O2 Source [Without Activity] Nasal cannula O2 Source Room air I&O (Last 24 Hrs): Intake and Output Totals x24h 03/11/20 03/12/20 03/13/20 23:59 23:59 23:59 Intake Total 9869.655 3811.651 2175.967 Output Total 635 1887 3540 Balance 335.341 3419.651 -1364.033 - Results Results: Laboratory Results WBC 10.9 x10^3/uL (4.8-10.8) H 03/13/20 05:30 RBC 3.23 10^6/uL (4.20-5.40) L 03/13/20 05:30 Hgb 10.8 g/dL (12.0-16.0) L 03/13/20 05:30 Hct 31.8 % (37.0-47.0) L 03/13/20 05:30 MCV 98.5 fL (81.0-99.0) 03/13/20 05:30 MCH 33.4 pg (27.0-31.0) H 03/13/20 05:30 MCHC 34.0 g/dL (32.0-36.0) 03/13/20 05:30 RDW 13.0 % (12.0-15.0) 03/13/20 05:30 Plt Count 218 10^3/uL (130-450) 03/13/20 05:30 MPV 8.8 fL (7.9-10.8) 03/13/20 05:30 Neut # (Auto) 8.7 10^3/uL (1.5-6.6) H 03/13/20 05:30 Lymph # (Auto) 1.1 10^3/uL (1.5-3.5) L 03/13/20 05:30 [place] # (Auto) 0.9 10^3/uL (0.0-1.0) 03/13/20 05:30 Eos # (Auto) 0.1 10^3/uL (0.0-0.7) 03/13/20 05:30 Baso # (Auto) 0.0 10^3/uL (0.0-0.1) 03/13/20 05:30 Absolute Nucleated RBC 0.00 x10^3/uL 03/13/20 05:30 Nucleated RBC % 0.0 /100WBC 03/13/20 05:30 Bld Gas Analysis Time 52303/12/20 05:16 Sample Site RIGHT RADIAL 03/12/20 05:16 ABG pH 7.40 (7.35-7.45) 03/12/20 05:16 ABG pCO2 41 mmHg (34-45) 03/12/20 05:16 ABG pO2 125 mmHg (80-100) H 03/12/20 05:16 ABG HCO3 24.8 mmol/L (22.0-26.0) 03/12/20 05:16 ABG Total CO2 26.1 MMOL/L (21.0-29.0) 03/12/20 05:16 ABG O2 Saturation 98 % (94-98) 03/12/20 05:16 ABG Base Excess 0.0 mmol/L (-2.0-3.0) 03/12/20 05:16 Ovidio Test POSITIVE 03/12/20 05:16 VBG pH 7.325 (7.31-7.41) 03/13/20 05:30 Ionized Calcium 1.12 mmol/L (1.15-1.33) L 03/13/20 05:30 Respiration Rate 16 b/min 03/12/20 05:16 O2 Delivery Device VENTILATOR 03/12/20 05:16 Vent Mode SIMV 03/12/20 05:16 FiO2 40.00 03/12/20 05:16 Tidal Volume 450 mL 03/12/20 05:16 PEEP 5 cmH2O 03/12/20 05:16 Pressure Support Vent 10 cmH2O 03/12/20 05:16 EPAP 0 cmH2O 03/11/20 21:00 IPAP 0 cmH2O 03/11/20 21:00 Sodium 137 mmol/L (135-145) 03/13/20 05:30 Potassium 3.0 mmol/L (3.5-5.0) L 03/13/20 05:30 Chloride 110 mmol/L (101-111) 03/13/20 05:30 Carbon Dioxide 24 mmol/L (21-32) 03/13/20 05:30 Anion Gap 3.0 (6-13) L 03/13/20 05:30 BUN 6 mg/dL (6-20) 03/13/20 05:30 Creatinine 0.5 mg/dL (0.4-1.0) 03/13/20 05:30 Estimated GFR (MDRD) 124 (>89) 03/13/20 05:30 Glucose 161 mg/dL (70-100) H 03/13/20 05:30 Calcium 7.8 mg/dL (8.5-10.3) L 03/13/20 05:30 Phosphorus 1.7 mg/dL (2.5-4.6) L 03/13/20 05:30 Magnesium 2.1 mg/dL (1.7-2.8) 03/13/20 05:30 Total Bilirubin 0.7 mg/dL (0.2-1.0) 03/11/20 18:21 AST 41 IU/L (10-42) 03/11/20 18:21 ALT 32 IU/L (10-60) 03/11/20 18:21 Alkaline Phosphatase 107 IU/L (42-121) 03/11/20 18:21 Total Protein 7.4 g/dL (6.7-8.2) 03/11/20 18:21 Albumin 2.8 g/dL (3.2-5.5) L 03/13/20 05:30 Globulin 3.2 g/dL (2.1-4.2) 03/11/20 18:21 Albumin/Globulin Ratio 1.3 (1.0-2.2) 03/11/20 18:21 Lipase 19 U/L (22-51) L 03/11/20 18:21 TSH 1.12 uIU/mL (0.34-5.60) 03/11/20 18:21 Urine Color YELLOW 03/12/20 11:54 Urine Clarity HAZY (CLEAR) 03/12/20 11:54 Urine pH 6.5 PH (5.0-7.5) 03/12/20 11:54 Ur Specific [employer] [place] 1.025 (1.002-1.030) 03/12/20 11:54 Urine Protein NEGATIVE mg/dL (NEGATIVE) 03/12/20 11:54 Urine Glucose (UA) NEGATIVE mg/dL (NEGATIVE) 03/12/20 11:54 Urine Ketones 15 mg/dL (NEGATIVE) H 03/12/20 11:54 Urine Occult Blood LARGE (NEGATIVE) H 03/12/20 11:54 Urine Nitrite NEGATIVE (NEGATIVE) 03/12/20 11:54 Urine Bilirubin NEGATIVE (NEGATIVE) 03/12/20 11:54 Urine Urobilinogen 0.2 (NORMAL) E.U./dL (NORMAL) 03/12/20 11:54 Ur Leukocyte Esterase SMALL (NEGATIVE) H 03/12/20 11:54 Urine RBC TNTC /HPF (0-5) H 03/12/20 11:54 Urine WBC 6-10 /HPF (0-5) H 03/12/20 11:54 Ur Squamous Epith Cells RARE Squamous (<= Few) 03/12/20 11:54 Urine Bacteria Rare /HPF (None Seen) 03/12/20 11:54 Ur Microscopic Review INDICATED 03/11/20 20:50 Urine Culture Comments INDICATED 03/12/20 11:54 Nasal Screen MRSA (PCR) NEGATIVE (NEGATIVE) 03/11/20 21:45 Salicylates < 6.0 mg/dL 03/11/20 18:21 Urine Opiates Screen NEGATIVE (NEGATIVE) 03/11/20 20:50 Ur Oxycodone Screen POSITIVE (NEGATIVE) H 03/11/20 20:50 Urine Methadone Screen NEGATIVE (NEGATIVE) 03/11/20 20:50 Ur Propoxyphene Screen NEGATIVE (NEGATIVE) 03/11/20 20:50 Acetaminophen < 10 ug/mL (10-30) L 03/11/20 18:21 Ur Barbiturates Screen NEGATIVE (NEGATIVE) 03/11/20 20:50 Ur Tricyclics Screen POSITIVE (NEGATIVE) H 03/11/20 20:50 Ur Phencyclidine Scrn NEGATIVE (NEGATIVE) 03/11/20 20:50 Ur Amphetamine Screen NEGATIVE (NEGATIVE) 03/11/20 20:50 U Methamphetamines Scrn NEGATIVE (NEGATIVE) 03/11/20 20:50 U Benzodiazepines Scrn NEGATIVE (NEGATIVE) 03/11/20 20:50 Urine Cocaine Screen NEGATIVE (NEGATIVE) 03/11/20 20:50 U Cannabinoids Screen POSITIVE (NEGATIVE) H 03/11/20 20:50 Ethyl Alcohol < 5.0 mg/dL 03/11/20 18:21 - Procedures Procedures: Procedures COLONOSCOPY (11/01/14) ESOPHAGOGASTRODUODENOSCOPY [EGD] W/CLOSED BIOPSY (11/01/14) EXCISION OF DUODENUM, ENDO, DIAGN (05/14/16) EXCISION OF STOMACH, ENDO, DIAGN (07/30/16) EXCISION OF STOMACH, PYLORUS, ENDO, DIAGN (05/14/16) INSERT INFUSION DEV IN R INT JUGULAR VEIN, PERC (07/30/16) INSERTION OF INFUSION DEV INTO SUP VENA CAVA, PERC APPROACH (10/26/15) INSPECTION OF LOWER INTESTINAL TRACT, ENDO (07/30/16) ULTRASONOGRAPHY OF RIGHT JUGULAR VEINS, GUIDANCE (07/30/16) VENOUS CATHETERIZATION NEC (03/23/15)
[2020-03-13] MEDS: oxyCODONE 5 MG TABLET PO PRN (19:27)
[2020-03-13] MEDS: traZODone 50 MG TABLET PO PRN (22:40)
[2020-03-14] MEDS: SODIUM CHLORIDE FLUSH 0.9% 10 ML SYRINGE IVP SCH ×4 (00:47→22:35)
[2020-03-14] MEDS: SODIUM CHLORIDE FLUSH 0.9% 10 ML SYRINGE IVP PRN ×6 (00:47→22:35)
[2020-03-14] MEDS: oxyCODONE 5 MG TABLET PO PRN ×3 (00:49→16:46)
[2020-03-14] MEDS: DEXTROSE 5%-0.9% NACL 1,000 ML IV SCH ×2 (01:52→10:29)
[2020-03-14] MEDS ORDERED: BENZOCAINE/MENTHOL LOZENGE MM PRN (02:00)
[2020-03-14] MEDS: HYDROmorphone 2 MG/ML VIAL IVP PRN ×6 (02:15→22:34)
[2020-03-14 05:48] LABS: BASOPHILS % (AUTO) 0.3 %; EOSINOPHILS # (AUTO) 0.3 10^3/uL (0.0-0.7); EOSINOPHILS % (AUTO) 2.7 %; HGB - HEMOGLOBIN 10.7 g/dL (12.0-16.0); LYMPHOCYTES % (AUTO) 21.5 %; MEAN CORPUSCULAR HEMOGLOBIN 32.3 pg (27.0-31.0); MEAN CORPUSCULAR HGB CONC 34.1 g/dL (32.0-36.0); MEAN CORPUSCULAR VOLUME 94.9 fL (81.0-99.0); MEAN PLATELET VOLUME 8.6 fL (7.9-10.8); MONOCYTES # (AUTO) 0.8 10^3/uL (0.0-1.0); MONOCYTES % (AUTO) 8.4 %; NEUTROPHILS # (AUTO) 6.2 10^3/uL (1.5-6.6); NEUTROPHILS % (AUTO) 66.8 %; PLT - PLATELET COUNT 213 10^3/uL (130-450); RED BLOOD COUNT 3.31 10^6/uL (4.20-5.40); RED CELL DISTRIBUTION WIDTH 12.7 % (12.0-15.0); VBG PH 7.464 (7.31-7.41); WHITE BLOOD COUNT 9.3 x10^3/uL (4.8-10.8)
[2020-03-14 06:05] LABS: ALBUMIN 2.9 g/dL (3.2-5.5); BUN - BLOOD UREA NITROGEN < 5 mg/dL (6-20); CALCIUM 7.7 mg/dL (8.5-10.3); CARBON DIOXIDE - CO2 23 mmol/L (21-32); CHLORIDE 108 mmol/L (101-111); CREATININE 0.4 mg/dL (0.4-1.0); GLUCOSE 152 mg/dL (70-100); PHOSPHORUS 1.9 mg/dL (2.5-4.6); SODIUM 137 mmol/L (135-145)
[2020-03-14] MEDS ORDERED: POTASSIUM CHLORIDE 20 MEQ TABLET PO ONE (07:00)
--- NOTE | 2020-03-14 08:03 | PROVIDER PROGRESS NOTE ---
Assessment/Plan - Problem List (3) Respiratory failure Qualifiers: Chronicity: acute Respiratory failure complication: unspecified whether with hypoxia or hypercapnia Qualified Code(s): J96.00 - Acute respiratory failure, unspecified whether with hypoxia or hypercapnia (5) Drug overdose Qualifiers: Encounter type: initial encounter Injury intent: undetermined intent Qualified Code(s): T50.904A - Poisoning by unspecified drugs, medicaments and biological substances, undetermined, initial encounter - Current Meds Current Meds: Current Medications Generic Name Dose Route Start Last Admin Trade Name Freq PRN Reason Stop Dose Admin Acetaminophen 650 mg 03/13/20 17:04 03/13/20 17:34 Tylenol PO 650 mg Q4HR PRN Administration Pain or Fever > 38C (100.4F) Bupropion HCl 300 mg 03/12/20 12:00 03/13/20 08:21 Wellbutrin Xl PO 300 mg DAILY BETTIE Administration Heparin Sodium (Beef Lung) 30 - 50 unit 03/11/20 23:40 03/14/20 05:33 IVP 60 unit PRN PRN Administration Central Line Protocol (<24 hr) Hydromorphone HCl 2 mg 03/12/20 11:32 03/14/20 05:56 Dilaudid (Vial) IVP 2 mg Q4H PRN Administration PAIN Dextrose/Sodium Chloride 1,000 mls @ 125 mls/hr 03/11/20 23:00 03/14/20 06:00 D5ns IV 125 mls/hr .Q8H BETTIE Infusion Azithromycin 500 mg/ Sodium 250 mls @ 250 mls/hr 03/12/20 14:00 03/13/20 14:05 Chloride IV Infused Q24H BETTIE Infusion Ceftriaxone Sodium 2 gm/ 100 mls @ 200 mls/hr 03/12/20 13:00 03/13/20 12:59 Sodium Chloride IV Infused Q24H BETTIE Infusion Lorazepam 1 mg 03/11/20 21:03 03/13/20 03:35 Ativan Inj (Vial) IVP 1 mg Q1H PRN Administration CIWA >8 Protocol Nicotine 1 patch 03/12/20 12:00 03/13/20 08:21 Nicoderm TOP 1 patch DAILY BETTIE Administration Oxycodone HCl 15 mg 03/13/20 11:00 03/14/20 00:49 Roxicodone PO 15 mg Q6H PRN Administration PAIN Sodium Chloride 10 ml 03/12/20 01:00 03/14/20 00:47 Normal Saline Flush 0.9% IVP 10 ml 0100,0900,1700 BETTIE Administration Sodium Chloride 10 ml 03/11/20 20:52 03/14/20 05:56 Normal Saline Flush 0.9% IVP 10 ml PRN PRN Administration NEEDED PER PROVIDER ORDERS Sodium Chloride 20 ml 03/11/20 23:40 03/14/20 05:34 Normal Saline Flush 0.9% IVP 20 ml PRN PRN Administration After Blood Draw Throat Lozenges 1 lozenge 03/14/20 02:00 03/14/20 05:34 Cepacol MM 1 lozenge Q2HR PRN Administration Throat pain Trazodone HCl 50 mg 03/13/20 11:01 03/13/20 22:40 Desyrel PO 50 mg QPM PRN Administration Insomnia - Lab Result Fish Bone Diagrams: 03/14/20 05:30 03/14/20 05:30 - Additional Planning My Orders: My Active Orders 03/13/20 08:41 Miscellaenous Nursing Order [RC] ONCE 03/13/20 11:00 oxyCODONE [Roxicodone] 15 mg PO Q6H PRN 03/13/20 11:01 Ondansetron Odt [Zofran Odt] 4 mg PO DAILY PRN traZODone [Desyrel] 50 mg PO QPM PRN 03/13/20 11:45 Phenol [Chloraseptic] 2 sprays MM Q2HR PRN 03/13/20 17:04 Acetaminophen [Tylenol] 650 mg PO Q4HR PRN 03/13/20 19:31 Tobacco Cessation [RC] .ONCE 03/13/20 Dinner DIET [Soft Mechanical Diet] [DIET] 03/14/20 02:00 Benzocaine/Menthol [Cepacol] 1 lozenge MM Q2HR PRN 03/14/20 08:00 Neutra-Phos [K-Phos Neutral] 250 mg PO Q2H 03/14/20 09:00 Calcium Gluconate 1,000 mg Sodium Chloride 0.9% [Normal Saline 0.9%] 50 ml IV ONCE Thiamine [Vitamin B-1] 100 mg PO DAILY Objective Vital Signs: Vital Signs - 24 hr 03/13/20 03/13/20 03/13/20 09:00 09:06 10:00 Temperature 36.6 C Heart Rate 83 Heart Rate [ 82 88 Monitoring electrodes] Respiratory 17 17 Rate Blood Pressure 105/55 L 116/67 [Left Brachial artery] O2 Saturation 98 99 03/13/20 03/13/20 03/13/20 11:00 12:00 14:00 Temperature 36.6 C Heart Rate Heart Rate [ 102 H 96 101 H Monitoring electrodes] Respiratory 26 H 17 18 Rate Blood Pressure 153/83 H 134/75 H 129/73 [Left Brachial artery] O2 Saturation 100 98 95 03/13/20 03/13/20 03/13/20 15:00 15:40 16:00 Temperature 37.9 C H 38.1 C H Heart Rate Heart Rate [ 96 110 H Monitoring electrodes] Respiratory 18 20 Rate Blood Pressure 130/69 128/71 [Left Brachial artery] O2 Saturation 94 92 03/13/20 03/13/20 03/13/20 17:00 18:00 19:00 Temperature Heart Rate Heart Rate [ 97 103 H 102 H Monitoring electrodes] Respiratory 17 16 16 Rate Blood Pressure 129/79 136/71 H 119/61 [Left Brachial artery] O2 Saturation 94 95 96 03/13/20 03/13/20 03/13/20 20:00 21:00 21:54 Temperature 37.6 C H Heart Rate Heart Rate [ 100 96 Monitoring electrodes] Respiratory 14 15 Rate Blood Pressure 125/70 134/70 H [Left Brachial artery] O2 Saturation 96 98 03/13/20 03/13/20 03/13/20 22:00 22:47 23:00 Temperature 37.7 C H Heart Rate Heart Rate [ 94 92 Monitoring electrodes] Respiratory 19 15 Rate Blood Pressure 117/68 126/66 [Left Brachial artery] O2 Saturation 95 97 03/14/20 03/14/20 03/14/20 00:00 00:56 01:00 Temperature 37.4 C Heart Rate Heart Rate [ 89 91 Monitoring electrodes] Respiratory 13 13 Rate Blood Pressure 108/54 L 108/58 L [Left Brachial artery] O2 Saturation 95 97 03/14/20 03/14/20 03/14/20 02:00 03:00 04:00 Temperature Heart Rate Heart Rate [ 95 95 87 Monitoring electrodes] Respiratory 16 18 15 Rate Blood Pressure 132/67 H 121/66 120/65 [Left Brachial artery] O2 Saturation 95 94 94 03/14/20 03/14/20 03/14/20 05:00 05:30 06:00 Temperature 37.1 C Heart Rate Heart Rate [ 91 96 Monitoring electrodes] Respiratory 14 14 Rate Blood Pressure 121/66 122/67 [Left Brachial artery] O2 Saturation 94 95 03/14/20 07:00 Temperature Heart Rate Heart Rate [ 87 Monitoring electrodes] Respiratory 13 Rate Blood Pressure 121/65 [Left Brachial artery] O2 Saturation 95 Oxygen O2 Source [With Activity] Nasal cannula O2 Source [Without Activity] Nasal cannula O2 Source Room air I&O (Last 24 Hrs): Intake and Output Totals x24h 03/12/20 03/13/20 03/14/20 23:59 23:59 23:59 Intake Total 4372.651 3747.584 1125.000 Output Total 1887 4890 880 Balance 2485.651 -1142.416 245.000 - Results Results: Laboratory Results WBC 9.3 x10^3/uL (4.8-10.8) 03/14/20 05:30 RBC 3.31 10^6/uL (4.20-5.40) L 03/14/20 05:30 Hgb 10.7 g/dL (12.0-16.0) L 03/14/20 05:30 Hct 31.4 % (37.0-47.0) L 03/14/20 05:30 MCV 94.9 fL (81.0-99.0) 03/14/20 05:30 MCH 32.3 pg (27.0-31.0) H 03/14/20 05:30 MCHC 34.1 g/dL (32.0-36.0) 03/14/20 05:30 RDW 12.7 % (12.0-15.0) 03/14/20 05:30 Plt Count 213 10^3/uL (130-450) 03/14/20 05:30 MPV 8.6 fL (7.9-10.8) 03/14/20 05:30 Neut # (Auto) 6.2 10^3/uL (1.5-6.6) 03/14/20 05:30 Lymph # (Auto) 2.0 10^3/uL (1.5-3.5) 03/14/20 05:30 [place] # (Auto) 0.8 10^3/uL (0.0-1.0) 03/14/20 05:30 Eos # (Auto) 0.3 10^3/uL (0.0-0.7) 03/14/20 05:30 Baso # (Auto) 0.0 10^3/uL (0.0-0.1) 03/14/20 05:30 Absolute Nucleated RBC 0.00 x10^3/uL 03/14/20 05:30 Nucleated RBC % 0.0 /100WBC 03/14/20 05:30 Bld Gas Analysis Time 0524 03/12/20 05:16 Sample Site RIGHT RADIAL 03/12/20 05:16 ABG pH 7.40 (7.35-7.45) 03/12/20 05:16 ABG pCO2 41 mmHg (34-45) 03/12/20 05:16 ABG pO2 125 mmHg (80-100) H 03/12/20 05:16 ABG HCO3 24.8 mmol/L (22.0-26.0) 03/12/20 05:16 ABG Total CO2 26.1 MMOL/L (21.0-29.0) 03/12/20 05:16 ABG O2 Saturation 98 % (94-98) 03/12/20 05:16 ABG Base Excess 0.0 mmol/L (-2.0-3.0) 03/12/20 05:16 Ovidio Test POSITIVE 03/12/20 05:16 VBG pH 7.464 (7.31-7.41) H 03/14/20 05:30 Ionized Calcium 1.08 mmol/L (1.15-1.33) L 03/14/20 05:30 Respiration Rate 16 b/min 03/12/20 05:16 O2 Delivery Device VENTILATOR 03/12/20 05:16 Vent Mode SIMV 03/12/20 05:16 FiO2 40.00 03/12/20 05:16 Tidal Volume 450 mL 03/12/20 05:16 PEEP 5 cmH2O 03/12/20 05:16 Pressure Support Vent 10 cmH2O 03/12/20 05:16 EPAP 0 cmH2O 03/11/20 21:00 IPAP 0 cmH2O 03/11/20 21:00 Sodium 137 mmol/L (135-145) 03/14/20 05:30 Potassium 3.0 mmol/L (3.5-5.0) L 03/14/20 05:30 Chloride 108 mmol/L (101-111) 03/14/20 05:30 Carbon Dioxide 23 mmol/L (21-32) 03/14/20 05:30 Anion Gap 6.0 (6-13) 03/14/20 05:30 BUN < 5 mg/dL (6-20) L 03/14/20 05:30 Creatinine 0.4 mg/dL (0.4-1.0) 03/14/20 05:30 Estimated GFR (MDRD) 161 (>89) 03/14/20 05:30 Glucose 152 mg/dL (70-100) H 03/14/20 05:30 Calcium 7.7 mg/dL (8.5-10.3) L 03/14/20 05:30 Phosphorus 1.9 mg/dL (2.5-4.6) L 03/14/20 05:30 Magnesium 2.0 mg/dL (1.7-2.8) 03/14/20 05:30 Total Bilirubin 0.7 mg/dL (0.2-1.0) 03/11/20 18:21 AST 41 IU/L (10-42) 03/11/20 18:21 ALT 32 IU/L (10-60) 03/11/20 18:21 Alkaline Phosphatase 107 IU/L (42-121) 03/11/20 18:21 Total Protein 7.4 g/dL (6.7-8.2) 03/11/20 18:21 Albumin 2.9 g/dL (3.2-5.5) L 03/14/20 05:30 Globulin 3.2 g/dL (2.1-4.2) 03/11/20 18:21 Albumin/Globulin Ratio 1.3 (1.0-2.2) 03/11/20 18:21 Lipase 19 U/L (22-51) L 03/11/20 18:21 TSH 1.12 uIU/mL (0.34-5.60) 03/11/20 18:21 Urine Color YELLOW 03/12/20 11:54 Urine Clarity HAZY (CLEAR) 03/12/20 11:54 Urine pH 6.5 PH (5.0-7.5) 03/12/20 11:54 Ur Specific [place] 1.025 (1.002-1.030) 03/12/20 11:54 Urine Protein NEGATIVE mg/dL (NEGATIVE) 03/12/20 11:54 Urine Glucose (UA) NEGATIVE mg/dL (NEGATIVE) 03/12/20 11:54 Urine Ketones 15 mg/dL (NEGATIVE) H 03/12/20 11:54 Urine Occult Blood LARGE (NEGATIVE) H 03/12/20 11:54 Urine Nitrite NEGATIVE (NEGATIVE) 03/12/20 11:54 Urine Bilirubin NEGATIVE (NEGATIVE) 03/12/20 11:54 Urine Urobilinogen 0.2 (NORMAL) E.U./dL (NORMAL) 03/12/20 11:54 Ur Leukocyte Esterase SMALL (NEGATIVE) H 03/12/20 11:54 Urine RBC TNTC /HPF (0-5) H 03/12/20 11:54 Urine WBC 6-10 /HPF (0-5) H 03/12/20 11:54 Ur Squamous Epith Cells RARE Squamous (<= Few) 03/12/20 11:54 Urine Bacteria Rare /HPF (None Seen) 03/12/20 11:54 Ur Microscopic Review INDICATED 03/11/20 20:50 Urine Culture Comments INDICATED 03/12/20 11:54 Nasal Screen MRSA (PCR) NEGATIVE (NEGATIVE) 03/11/20 21:45 Salicylates < 6.0 mg/dL 03/11/20 18:21 Urine Opiates Screen NEGATIVE (NEGATIVE) 03/11/20 20:50 Ur Oxycodone Screen POSITIVE (NEGATIVE) H 03/11/20 20:50 Urine Methadone Screen NEGATIVE (NEGATIVE) 03/11/20 20:50 Ur Propoxyphene Screen NEGATIVE (NEGATIVE) 03/11/20 20:50 Acetaminophen < 10 ug/mL (10-30) L 03/11/20 18:21 Ur Barbiturates Screen NEGATIVE (NEGATIVE) 03/11/20 20:50 Ur Tricyclics Screen POSITIVE (NEGATIVE) H 03/11/20 20:50 Ur Phencyclidine Scrn NEGATIVE (NEGATIVE) 03/11/20 20:50 Ur Amphetamine Screen NEGATIVE (NEGATIVE) 03/11/20 20:50 U Methamphetamines Scrn NEGATIVE (NEGATIVE) 03/11/20 20:50 U Benzodiazepines Scrn NEGATIVE (NEGATIVE) 03/11/20 20:50 Urine Cocaine Screen NEGATIVE (NEGATIVE) 03/11/20 20:50 U Cannabinoids Screen POSITIVE (NEGATIVE) H 03/11/20 20:50 Ethyl Alcohol < 5.0 mg/dL 03/11/20 18:21 - Procedures Procedures: Procedures COLONOSCOPY (11/01/14) ESOPHAGOGASTRODUODENOSCOPY [EGD] W/CLOSED BIOPSY (11/01/14) EXCISION OF DUODENUM, ENDO, DIAGN (05/14/16) EXCISION OF STOMACH, ENDO, DIAGN (07/30/16) EXCISION OF STOMACH, PYLORUS, ENDO, DIAGN (05/14/16) INSERT INFUSION DEV IN R INT JUGULAR VEIN, PERC (07/30/16) INSERTION OF INFUSION DEV INTO SUP VENA CAVA, PERC APPROACH (10/26/15) INSPECTION OF LOWER INTESTINAL TRACT, ENDO (07/30/16) ULTRASONOGRAPHY OF RIGHT JUGULAR VEINS, GUIDANCE (07/30/16) VENOUS CATHETERIZATION NEC (03/23/15)
--- NOTE | 2020-03-14 08:10 | PROVIDER PROGRESS NOTE ---
Assessment/Plan - Problem List (1) Pneumonia due to Hemophilus influenzae (H. influenzae) Qualifiers: Laterality: bilateral Assessment/Plan: There were fevers the previous 2 days. The sputum culture grew Haemophilus influenzae. The blood cultures are negative to date. The urine culture is negative to date. She is on empiric treatment for community-acquired pneumonia. COVID swab result is negative. Isolation will be stopped. She was extubated without trouble yesterday. We will transfer out of ICU today to [facility]. (2) Seizure Assessment/Plan: No further seizures since the 2 in ER. She was not put on daily Keppra. Possibly this was a reaction to what she ingested that prompted her call to EMS at admission. Head CT was neg. Will plan to get input from [facility] neurology at . (3) Suicidal ideation Assessment/Plan: She was extubated yesterday, she mentioned to her RN that she did not remember any of what brought her in, did not remember the phone call to EMS or stating that she had taken some medication that was laced. Will have SW see her today for a mental health eval>>> this was done and the patient has amnesia to the entire event and even several days before that. The DCR (designated crisis responder) needs to see the patient, per the [place]. Continue 1:1 supervision. (4) Drug overdose Qualifiers: Encounter type: initial encounter Injury intent: undetermined intent Qualified Code(s): T50.904A - Poisoning by unspecified drugs, medicaments and biological substances, undetermined, initial encounter Assessment/Plan: The patient states she cannot remember any of the event. Will have SW saw her today for a mental health eval. and DCR needs to eval her. (5) History of alcohol abuse Assessment/Plan: A CIWA protocol is still ordered prn but the patient repported to her RN that this was a remote problem. It could be a reason for the seizure (alcohol withdrawal seizure), since there was no alcohol present on MUDS screen at admission. (6) Tobacco use Assessment/Plan: She is on Nicotine patch and getting her anti-anxiety meds. (7) Anxiety Assessment/Plan: She is on her anti-anxiety meds. (8) Hypokalemia Assessment/Plan: Related to inadequate intake and replacement. Correct with po and iv K runners. Follow BMP daily. (9) Hypophosphatemia Assessment/Plan: Replace. Follow PO4 daily. (10) Anemia Assessment/Plan: Likely hemodilutional but will check Iron stores, B12 and Folate levels. (11) Respiratory failure Qualifiers: Respiratory failure complication: unspecified whether with hypoxia or hypercapnia Qualified Code(s): J96.00 - Acute respiratory failure, unspecified whether with hypoxia or hypercapnia Assessment/Plan: Resolved. She was extubated yesterday. The pneumonia is being treated. - Current Meds Current Meds: Current Medications Generic Name Dose Route Start Last Admin Trade Name Freq PRN Reason Stop Dose Admin Acetaminophen 650 mg 03/13/20 17:04 03/13/20 17:34 Tylenol PO 650 mg Q4HR PRN Administration Pain or Fever > 38C (100.4F) Bupropion HCl 300 mg 03/12/20 12:00 03/13/20 08:21 Wellbutrin Xl PO 300 mg DAILY BETTIE Administration Heparin Sodium (Beef Lung) 30 - 50 unit 03/11/20 23:40 03/14/20 05:33 IVP 60 unit PRN PRN Administration Central Line Protocol (<24 hr) Hydromorphone HCl 2 mg 03/12/20 11:32 03/14/20 05:56 Dilaudid (Vial) IVP 2 mg Q4H PRN Administration PAIN Dextrose/Sodium Chloride 1,000 mls @ 125 mls/hr 03/11/20 23:00 03/14/20 06:00 D5ns IV 125 mls/hr .Q8H BETTIE Infusion Azithromycin 500 mg/ Sodium 250 mls @ 250 mls/hr 03/12/20 14:00 03/13/20 14:05 Chloride IV Infused Q24H BETTIE Infusion Ceftriaxone Sodium 2 gm/ 100 mls @ 200 mls/hr 03/12/20 13:00 03/13/20 12:59 Sodium Chloride IV Infused Q24H BETTIE Infusion Lorazepam 1 mg 03/11/20 21:03 03/13/20 03:35 Ativan Inj (Vial) IVP 1 mg Q1H PRN Administration CIWA >8 Protocol Nicotine 1 patch 03/12/20 12:00 03/13/20 08:21 Nicoderm TOP 1 patch DAILY BETTIE Administration Oxycodone HCl 15 mg 03/13/20 11:00 03/14/20 00:49 Roxicodone PO 15 mg Q6H PRN Administration PAIN Sodium Chloride 10 ml 03/12/20 01:00 03/14/20 00:47 Normal Saline Flush 0.9% IVP 10 ml 0100,0900,1700 BETTIE Administration Sodium Chloride 10 ml 03/11/20 20:52 03/14/20 05:56 Normal Saline Flush 0.9% IVP 10 ml PRN PRN Administration NEEDED PER PROVIDER ORDERS Sodium Chloride 20 ml 03/11/20 23:40 03/14/20 05:34 Normal Saline Flush 0.9% IVP 20 ml PRN PRN Administration After Blood Draw Throat Lozenges 1 lozenge 03/14/20 02:00 03/14/20 05:34 Cepacol MM 1 lozenge Q2HR PRN Administration Throat pain Trazodone HCl 50 mg 03/13/20 11:01 03/13/20 22:40 Desyrel PO 50 mg QPM PRN Administration Insomnia - Lab Result Fish Bone Diagrams: 03/14/20 05:30 03/14/20 05:30 - Additional Planning My Orders: My Active Orders 03/13/20 08:41 Miscellaenous Nursing Order [RC] ONCE 03/13/20 11:00 oxyCODONE [Roxicodone] 15 mg PO Q6H PRN 03/13/20 11:01 Ondansetron Odt [Zofran Odt] 4 mg PO DAILY PRN traZODone [Desyrel] 50 mg PO QPM PRN 03/13/20 11:45 Phenol [Chloraseptic] 2 sprays MM Q2HR PRN 03/13/20 17:04 Acetaminophen [Tylenol] 650 mg PO Q4HR PRN 03/13/20 19:31 Tobacco Cessation [RC] .ONCE 03/13/20 Dinner DIET [Soft Mechanical Diet] [DIET] 03/14/20 02:00 Benzocaine/Menthol [Cepacol] 1 lozenge MM Q2HR PRN 03/14/20 08:00 Neutra-Phos [K-Phos Neutral] 250 mg PO Q2H 03/14/20 08:05 Transfer [Admit \ Transfer \ Status] [RC] .ONCE 03/14/20 08:06 Telemetry-Discontinue [RC] .ONCE 03/14/20 08:07 Miscellaenous Nursing Order [RC] ONCE 03/14/20 09:00 Calcium Gluconate 1,000 mg Sodium Chloride 0.9% [Normal Saline 0.9%] 50 ml IV ONCE Potassium Chloride/Water 10 mEq/100 mL q1h (Enter # of bags) Potassium Chlor 10 Meq/100 ml [Potassium Chloride] 10 meq in 100 ml IV Q1H Thiamine [Vitamin B-1] 100 mg PO DAILY Subjective - Subjective Patient Reports: Feeling Better, Other (She wants to stop smoking, gave me a summary of why it is time to stop.) Objective Vital Signs: Vital Signs - 24 hr 03/13/20 03/13/20 03/13/20 09:00 09:06 10:00 Temperature 36.6 C Heart Rate 83 Heart Rate [ 82 88 Monitoring electrodes] Respiratory 17 17 Rate Blood Pressure 105/55 L 116/67 [Left Brachial artery] O2 Saturation 98 99 03/13/20 03/13/20 03/13/20 11:00 12:00 14:00 Temperature 36.6 C Heart Rate Heart Rate [ 102 H 96 101 H Monitoring electrodes] Respiratory 26 H 17 18 Rate Blood Pressure 153/83 H 134/75 H 129/73 [Left Brachial artery] O2 Saturation 100 98 95 03/13/20 03/13/20 03/13/20 15:00 15:40 16:00 Temperature 37.9 C H 38.1 C H Heart Rate Heart Rate [ 96 110 H Monitoring electrodes] Respiratory 18 20 Rate Blood Pressure 130/69 128/71 [Left Brachial artery] O2 Saturation 94 92 03/13/20 03/13/20 03/13/20 17:00 18:00 19:00 Temperature Heart Rate Heart Rate [ 97 103 H 102 H Monitoring electrodes] Respiratory 17 16 16 Rate Blood Pressure 129/79 136/71 H 119/61 [Left Brachial artery] O2 Saturation 94 95 96 03/13/20 03/13/20 03/13/20 20:00 21:00 21:54 Temperature 37.6 C H Heart Rate Heart Rate [ 100 96 Monitoring electrodes] Respiratory 14 15 Rate Blood Pressure 125/70 134/70 H [Left Brachial artery] O2 Saturation 96 98 03/13/20 03/13/20 03/13/20 22:00 22:47 23:00 Temperature 37.7 C H Heart Rate Heart Rate [ 94 92 Monitoring electrodes] Respiratory 19 15 Rate Blood Pressure 117/68 126/66 [Left Brachial artery] O2 Saturation 95 97 03/14/20 03/14/20 03/14/20 00:00 00:56 01:00 Temperature 37.4 C Heart Rate Heart Rate [ 89 91 Monitoring electrodes] Respiratory 13 13 Rate Blood Pressure 108/54 L 108/58 L [Left Brachial artery] O2 Saturation 95 97 03/14/20 03/14/20 03/14/20 02:00 03:00 04:00 Temperature Heart Rate Heart Rate [ 95 95 87 Monitoring electrodes] Respiratory 16 18 15 Rate Blood Pressure 132/67 H 121/66 120/65 [Left Brachial artery] O2 Saturation 95 94 94 03/14/20 03/14/20 03/14/20 05:00 05:30 06:00 Temperature 37.1 C Heart Rate Heart Rate [ 91 96 Monitoring electrodes] Respiratory 14 14 Rate Blood Pressure 121/66 122/67 [Left Brachial artery] O2 Saturation 94 95 03/14/20 07:00 Temperature Heart Rate Heart Rate [ 87 Monitoring electrodes] Respiratory 13 Rate Blood Pressure 121/65 [Left Brachial artery] O2 Saturation 95 Oxygen O2 Source [With Activity] Nasal cannula O2 Source [Without Activity] Nasal cannula O2 Source Room air I&O (Last 24 Hrs): Intake and Output Totals x24h 03/12/20 03/13/20 03/14/20 23:59 23:59 23:59 Intake Total 4372.651 3747.584 1125.000 Output Total 1887 4890 880 Balance 2485.651 -1142.416 245.000 General: Alert HEENT: Mucous membr. moist/pink, Other (edentulous, appears to have poorly fitting upper dnetures only, not lowers) Neuro: Alert, Other (She reports that she has memory loss over the last several weeks going backward) Cardiovascular: Regular rate, No murmurs Respiratory: No respiratory distress, Breath sounds nml Abdomen: Normal bowel sounds, Soft Extremities: No edema - Results Results: Laboratory Results WBC 9.3 x10^3/uL (4.8-10.8) 03/14/20 05:30 RBC 3.31 10^6/uL (4.20-5.40) L 03/14/20 05:30 Hgb 10.7 g/dL (12.0-16.0) L 03/14/20 05:30 Hct 31.4 % (37.0-47.0) L 03/14/20 05:30 MCV 94.9 fL (81.0-99.0) 03/14/20 05:30 MCH 32.3 pg (27.0-31.0) H 03/14/20 05:30 MCHC 34.1 g/dL (32.0-36.0) 03/14/20 05:30 RDW 12.7 % (12.0-15.0) 03/14/20 05:30 Plt Count 213 10^3/uL (130-450) 03/14/20 05:30 MPV 8.6 fL (7.9-10.8) 03/14/20 05:30 Neut # (Auto) 6.2 10^3/uL (1.5-6.6) 03/14/20 05:30 Lymph # (Auto) 2.0 10^3/uL (1.5-3.5) 03/14/20 05:30 [place] # (Auto) 0.8 10^3/uL (0.0-1.0) 03/14/20 05:30 Eos # (Auto) 0.3 10^3/uL (0.0-0.7) 03/14/20 05:30 Baso # (Auto) 0.0 10^3/uL (0.0-0.1) 03/14/20 05:30 Absolute Nucleated RBC 0.00 x10^3/uL 03/14/20 05:30 Nucleated RBC % 0.0 /100WBC 03/14/20 05:30 Bld Gas Analysis Time 52303/12/20 05:16 Sample Site RIGHT RADIAL 03/12/20 05:16 ABG pH 7.40 (7.35-7.45) 03/12/20 05:16 ABG pCO2 41 mmHg (34-45) 03/12/20 05:16 ABG pO2 125 mmHg (80-100) H 03/12/20 05:16 ABG HCO3 24.8 mmol/L (22.0-26.0) 03/12/20 05:16 ABG Total CO2 26.1 MMOL/L (21.0-29.0) 03/12/20 05:16 ABG O2 Saturation 98 % (94-98) 03/12/20 05:16 ABG Base Excess 0.0 mmol/L (-2.0-3.0) 03/12/20 05:16 Ovidio Test POSITIVE 03/12/20 05:16 VBG pH 7.464 (7.31-7.41) H 03/14/20 05:30 Ionized Calcium 1.08 mmol/L (1.15-1.33) L 03/14/20 05:30 Respiration Rate 16 b/min 03/12/20 05:16 O2 Delivery Device VENTILATOR 03/12/20 05:16 Vent Mode SIMV 03/12/20 05:16 FiO2 40.00 03/12/20 05:16 Tidal Volume 450 mL 03/12/20 05:16 PEEP 5 cmH2O 03/12/20 05:16 Pressure Support Vent 10 cmH2O 03/12/20 05:16 EPAP 0 cmH2O 03/11/20 21:00 IPAP 0 cmH2O 03/11/20 21:00 Sodium 137 mmol/L (135-145) 03/14/20 05:30 Potassium 3.0 mmol/L (3.5-5.0) L 03/14/20 05:30 Chloride 108 mmol/L (101-111) 03/14/20 05:30 Carbon Dioxide 23 mmol/L (21-32) 03/14/20 05:30 Anion Gap 6.0 (6-13) 03/14/20 05:30 BUN < 5 mg/dL (6-20) L 03/14/20 05:30 Creatinine 0.4 mg/dL (0.4-1.0) 03/14/20 05:30 Estimated GFR (MDRD) 161 (>89) 03/14/20 05:30 Glucose 152 mg/dL (70-100) H 03/14/20 05:30 Calcium 7.7 mg/dL (8.5-10.3) L 03/14/20 05:30 Phosphorus 1.9 mg/dL (2.5-4.6) L 03/14/20 05:30 Magnesium 2.0 mg/dL (1.7-2.8) 03/14/20 05:30 Total Bilirubin 0.7 mg/dL (0.2-1.0) 03/11/20 18:21 AST 41 IU/L (10-42) 03/11/20 18:21 ALT 32 IU/L (10-60) 03/11/20 18:21 Alkaline Phosphatase 107 IU/L (42-121) 03/11/20 18:21 Total Protein 7.4 g/dL (6.7-8.2) 03/11/20 18:21 Albumin 2.9 g/dL (3.2-5.5) L 03/14/20 05:30 Globulin 3.2 g/dL (2.1-4.2) 03/11/20 18:21 Albumin/Globulin Ratio 1.3 (1.0-2.2) 03/11/20 18: Lipase 19 U/L (22-51) L 03/11/20 18: TSH 1.12 uIU/mL (0.34-5.60) 03/11/20 18:21 Urine Color YELLOW 03/12/20 11:54 Urine Clarity HAZY (CLEAR) 03/12/20 11:54 Urine pH 6.5 PH (5.0-7.5) 03/12/20 11:54 Ur Specific [place] 1.025 (1.002-1.030) 03/12/20 11:54 Urine Protein NEGATIVE mg/dL (NEGATIVE) 03/12/20 11:54 Urine Glucose (UA) NEGATIVE mg/dL (NEGATIVE) 03/12/20 11:54 Urine Ketones 15 mg/dL (NEGATIVE) H 03/12/20 11:54 Urine Occult Blood LARGE (NEGATIVE) H 03/12/20 11:54 Urine Nitrite NEGATIVE (NEGATIVE) 03/12/20 11:54 Urine Bilirubin NEGATIVE (NEGATIVE) 03/12/20 11:54 Urine Urobilinogen 0.2 (NORMAL) E.U./dL (NORMAL) 03/12/20 11:54 Ur Leukocyte Esterase SMALL (NEGATIVE) H 03/12/20 11:54 Urine RBC TNTC /HPF (0-5) H 03/12/20 11:54 Urine WBC 6-10 /HPF (0-5) H 03/12/20 11:54 Ur Squamous Epith Cells RARE Squamous (<= Few) 03/12/20 11:54 Urine Bacteria Rare /HPF (None Seen) 03/12/20 11:54 Ur Microscopic Review INDICATED 03/11/20 20:50 Urine Culture Comments INDICATED 03/12/20 11:54 Nasal Screen MRSA (PCR) NEGATIVE (NEGATIVE) 03/11/20 21:45 Salicylates < 6.0 mg/dL 03/11/20 18:21 Urine Opiates Screen NEGATIVE (NEGATIVE) 03/11/20 20:50 Ur Oxycodone Screen POSITIVE (NEGATIVE) H 03/11/20 20:50 Urine Methadone Screen NEGATIVE (NEGATIVE) 03/11/20 20:50 Ur Propoxyphene Screen NEGATIVE (NEGATIVE) 03/11/20 20:50 Acetaminophen < 10 ug/mL (10-30) L 03/11/20 18:21 Ur Barbiturates Screen NEGATIVE (NEGATIVE) 03/11/20 20:50 Ur Tricyclics Screen POSITIVE (NEGATIVE) H 03/11/20 20:50 Ur Phencyclidine Scrn NEGATIVE (NEGATIVE) 03/11/20 20:50 Ur Amphetamine Screen NEGATIVE (NEGATIVE) 03/11/20 20:50 U Methamphetamines Scrn NEGATIVE (NEGATIVE) 03/11/20 20:50 U Benzodiazepines Scrn NEGATIVE (NEGATIVE) 03/11/20 20:50 Urine Cocaine Screen NEGATIVE (NEGATIVE) 03/11/20 20:50 U Cannabinoids Screen POSITIVE (NEGATIVE) H 03/11/20 20:50 Ethyl Alcohol < 5.0 mg/dL 03/11/20 18:21 - Procedures Procedures: Procedures COLONOSCOPY (11/01/14) ESOPHAGOGASTRODUODENOSCOPY [EGD] W/CLOSED BIOPSY (11/01/14) EXCISION OF DUODENUM, ENDO, DIAGN (05/14/16) EXCISION OF STOMACH, ENDO, DIAGN (07/30/16) EXCISION OF STOMACH, PYLORUS, ENDO, DIAGN (05/14/16) INSERT INFUSION DEV IN R INT JUGULAR VEIN, PERC (07/30/16) INSERTION OF INFUSION DEV INTO SUP VENA CAVA, PERC APPROACH (10/26/15) INSPECTION OF LOWER INTESTINAL TRACT, ENDO (07/30/16) ULTRASONOGRAPHY OF RIGHT JUGULAR VEINS, GUIDANCE (07/30/16) VENOUS CATHETERIZATION NEC (03/23/15)
[2020-03-14] MEDS: THIAMINE 100 MG TABLET PO SCH (08:30)
[2020-03-14] MEDS: NEUTRA-PHOS 250 MG TABLET PO SCH ×2 (08:31→10:25)
[2020-03-14] MEDS: buPROPion XL 150 MG TABLET PO SCH (08:32)
[2020-03-14] MEDS: NICOTINE 14 MG PATCH TOP SCH (08:33)
[2020-03-14] MEDS ORDERED: BUPRENORPHINE HCL SL SCH (09:00)
[2020-03-14] MEDS ORDERED: CALCIUM GLUCONATE 1,000 MG in SODIUM CHLORIDE 0.9% 50 ML IV ONE (09:00)
[2020-03-14] MEDS: POTASSIUM CHLOR 10 MEQ/100 ML 10 MEQ/100 ML BAG IV SCH ×2 (09:23→10:26)
[2020-03-14] MEDS: cefTRIAXone 2 GM in SODIUM CHLORIDE 0.9% MINIBAG 100 ML IV SCH (13:01)
[2020-03-14] MEDS: CYCLOBENZAPRINE 10 MG TABLET PO PRN ×2 (13:03→19:50)
[2020-03-14] MEDS: FAMOTIDINE 20 MG TABLET PO SCH ×2 (13:21→20:49)
[2020-03-14] MEDS: AZITHROMYCIN INJ 500 MG in SODIUM CHLORIDE 0.9% 250 ML IV SCH (13:41)
[2020-03-14] MEDS: SACCHAROMYCES BOULARDII 250 MG CAPSULE PO SCH (16:45)
[2020-03-14] MEDS: ACETAMINOPHEN 325 MG TABLET PO PRN (19:50)
[2020-03-14] MEDS: traZODone 50 MG TABLET PO PRN (22:34)
[2020-03-15] MEDS: oxyCODONE 5 MG TABLET PO PRN ×4 (00:30→20:19)
[2020-03-15] MEDS: SODIUM CHLORIDE FLUSH 0.9% 10 ML SYRINGE IVP PRN ×5 (04:03→14:37)
[2020-03-15] MEDS: HYDROmorphone 2 MG/ML VIAL IVP PRN (04:03)
[2020-03-15 05:04] LABS: BASOPHILS % (AUTO) 0.6 %; EOSINOPHILS # (AUTO) 0.3 10^3/uL (0.0-0.7); EOSINOPHILS % (AUTO) 4.4 %; HGB - HEMOGLOBIN 12.4 g/dL (12.0-16.0); LYMPHOCYTES % (AUTO) 28.3 %; MEAN CORPUSCULAR HEMOGLOBIN 32.6 pg (27.0-31.0); MEAN CORPUSCULAR HGB CONC 33.9 g/dL (32.0-36.0); MEAN CORPUSCULAR VOLUME 96.3 fL (81.0-99.0); MEAN PLATELET VOLUME 8.7 fL (7.9-10.8); MONOCYTES # (AUTO) 0.9 10^3/uL (0.0-1.0); NEUTROPHILS # (AUTO) 3.8 10^3/uL (1.5-6.6); NEUTROPHILS % (AUTO) 53.3 %; PLT - PLATELET COUNT 259 10^3/uL (130-450); RED CELL DISTRIBUTION WIDTH 12.6 % (12.0-15.0); WHITE BLOOD COUNT 7.2 x10^3/uL (4.8-10.8)
[2020-03-15 05:26] LABS: CALCIUM 8.8 mg/dL (8.5-10.3); CREATININE 0.6 mg/dL (0.4-1.0); PHOSPHORUS 3.9 mg/dL (2.5-4.6)
[2020-03-15 06:11] LABS: FOLATE 11.34 ng/mL (5.90 - >24.8)
--- NOTE | 2020-03-15 07:36 | PROVIDER PROGRESS NOTE ---
Subjective - Prog Note Date Prog Note Date: 03/15/20 - Subjective Subjective: Reports feeling weak and dizzy when ambulating. She does not recall what happened prior to her admission. She denies any suicidal thoughts or ideations. Reports no difficulty breathing. Has an occasional cough. Current Medications - Current Medications Current Medications: Active Medications Acetaminophen (Tylenol) 650 mg PO Q4HR PRN PRN Reason: Pain or Fever > 38C (100.4F) Last Admin: 03/15/20 10:52 Dose: 650 mg Bupropion HCl (Wellbutrin Xl) 300 mg PO DAILY [facility] Last Admin: 03/15/20 08:48 Dose: 300 mg Cyclobenzaprine HCl (Flexeril) 10 mg PO TID PRN PRN Reason: MUSCLE SPASM Last Admin: 03/15/20 08:48 Dose: 10 mg Famotidine (Pepcid) 20 mg PO BID [facility] Last Admin: 03/15/20 08:48 Dose: 20 mg Heparin Sodium (Beef Lung) () 30 - 50 unit IVP PRN PRN PRN Reason: Central Line Protocol (<24 hr) Last Admin: 03/15/20 04:27 Dose: 50 unit Ceftriaxone Sodium 2 gm/ (Sodium Chloride) 100 mls @ 200 mls/hr IV Q24H [facility] Stop: 03/16/20 13:29 Last Infusion: 03/14/20 13:35 Dose: Infused Nicotine (Nicoderm) 1 patch TOP DAILY [facility] Last Admin: 03/15/20 08:49 Dose: 1 patch Ondansetron HCl (Zofran Odt) 4 mg PO DAILY PRN PRN Reason: Nausea / Vomiting Last Admin: 03/14/20 13:21 Dose: 4 mg Oxycodone HCl (Roxicodone) 15 mg PO Q6H PRN PRN Reason: PAIN Last Admin: 03/15/20 08:48 Dose: 15 mg Polyethylene Glycol (Miralax) 17 gm PO DAILY [facility] Last Admin: 03/15/20 10:52 Dose: 17 gm Multivit/Folic Acid/Iron (Trinatal Rx 1) 1 tab PO DAILYWM [facility] Last Admin: 03/15/20 08:48 Dose: 1 tab Saccharomyces Boulardii (Florastor) 250 mg PO BIDWM [facility] Last Admin: 03/15/20 08:48 Dose: 250 mg Sodium Chloride (Normal Saline Flush 0.9%) 10 ml IVP 0100,0900,1700 [facility] Last Admin: 03/15/20 08:49 Dose: 10 ml Sodium Chloride (Normal Saline Flush 0.9%) 10 ml IVP PRN PRN PRN Reason: NEEDED PER PROVIDER ORDERS Last Admin: 03/15/20 04:28 Dose: 10 ml Sodium Chloride (Normal Saline Flush 0.9%) 20 ml IVP PRN PRN PRN Reason: After Blood Draw Last Admin: 03/15/20 04:27 Dose: 20 ml Thiamine HCl (Vitamin B-1) 100 mg PO DAILY [facility] Last Admin: 03/15/20 08:48 Dose: 100 mg Throat Lozenges (Cepacol) 1 lozenge MM Q2HR PRN PRN Reason: Throat pain Last Admin: 03/14/20 05:34 Dose: 1 lozenge Trazodone HCl (Desyrel) 50 mg PO QPM PRN PRN Reason: Insomnia Last Admin: 03/14/20 22:34 Dose: 50 mg buprenorphine HCL [Buprenorphine HCl] 24 mg SL DAILY 05/07/17 Alendronate Sodium 70 mg PO Q7D 03/12/20 Bupropion HCl [Bupropion Xl] 300 mg PO DAILY 03/12/20 Cyclobenzaprine HCl 10 mg PO TID PRN 03/12/20 Ondansetron [Ondansetron Odt] 4 mg PO DAILY PRN 03/12/20 Oxycodone HCl 15 mg PO Q6H 03/12/20 Trazodone HCl 50 mg PO QPM PRN 03/12/20 Objective - Vital Signs/Intake & Output Reviewed Vital Signs: Yes Vital Signs: Vital Signs x48h Temp Pulse Resp BP Pulse Ox 03/15/20 04:00 37.2 C 85 17 143/87 H 94 03/15/20 00:00 37.2 C 90 12 135/77 H 94 Intake & Output: Intake & Output 03/12/20 03/13/20 03/14/20 03/15/20 23:59 23:59 23:59 23:59 Intake Total 4372.651 3747.584 3459.166 120 Output Total 3447 6030 880 Balance 2485.651 -2054.400 4145.166 120 - Objective General Appearance: positive: No acute distress, Alert Eyes Bilateral: positive: Normal inspection ENT: positive: ENT inspection nml Neck: positive: Nml inspection Respiratory: positive: No respiratory distress. negative: Wheezes, Rales Cardiovascular: positive: Regular rate & rhythm, No murmur. negative: Systolic murmur, Diastolic murmur Abdomen: positive: Non-tender, No distention. negative: Tenderness Skin: positive: Warm, Dry Extremities: positive: Full ROM, No pedal edema Neurologic/Psychiatric: positive: Oriented x3, Depressed mood/affect. negative: Disoriented to person, Disoriented to place, Disoriented to time - Lab Results Fish Bones: 03/15/20 04:27 03/15/20 04:27 Other Labs: Lab Results x24hrs 03/15/20 03/15/20 03/15/20 Range/Units 04:27 04:27 04:27 WBC 7.2 (4.8-10.8) x10^3/uL RBC 3.80 L (4.20-5.40) 10^6/uL Hgb 12.4 (12.0-16.0) g/dL Hct 36.6 L (37.0-47.0) % MCV 96.3 (81.0-99.0) fL MCH 32.6 H (27.0-31.0) pg MCHC 33.9 (32.0-36.0) g/dL RDW 12.6 (12.0-15.0) % Plt Count 259 (130-450) 10^3/uL MPV 8.7 (7.9-10.8) fL Neut # (Auto) 3.8 (1.5-6.6) 10^3/uL Lymph # (Auto) 2.0 (1.5-3.5) 10^3/uL [place] # (Auto) 0.9 (0.0-1.0) 10^3/uL Eos # (Auto) 0.3 (0.0-0.7) 10^3/uL Baso # (Auto) 0.0 (0.0-0.1) 10^3/uL Absolute Nucleated RBC 0.00 x10^3/uL Nucleated RBC % 0.0 /100WBC Sodium 139 (135-145) mmol/L Potassium 3.6 (3.5-5.0) mmol/L Chloride 106 (101-111) mmol/L Carbon Dioxide 25 (21-32) mmol/L Anion Gap 8.0 (6-13) BUN 7 (6-20) mg/dL Creatinine 0.6 (0.4-1.0) mg/dL Estimated GFR (MDRD) 101 (>89) Glucose 105 H (70-100) mg/dL Calcium 8.8 (8.5-10.3) mg/dL Phosphorus 3.9 (2.5-4.6) mg/dL Iron 64 (28-170) ug/dL TIBC 193 L (250-450) ug/dL % Saturation 33 (20-50) % Transferrin 138 L (192-382) mg/dL Vitamin B12 471 (180-914) pg/mL Folate 11.34 (5.90 - >24.8) ng/mL Coronavirus (PCR) 03/12/20 Range/Units 14:23 WBC (4.8-10.8) x10^3/uL RBC (4.20-5.40) 10^6/uL Hgb (12.0-16.0) g/dL Hct (37.0-47.0) % MCV (81.0-99.0) fL MCH (27.0-31.0) pg MCHC (32.0-36.0) g/dL RDW (12.0-15.0) % Plt Count (130-450) 10^3/uL MPV (7.9-10.8) fL Neut # (Auto) (1.5-6.6) 10^3/uL Lymph # (Auto) (1.5-3.5) 10^3/uL [place] # (Auto) (0.0-1.0) 10^3/uL Eos # (Auto) (0.0-0.7) 10^3/uL Baso # (Auto) (0.0-0.1) 10^3/uL Absolute Nucleated RBC x10^3/uL Nucleated RBC % /100WBC Sodium (135-145) mmol/L Potassium (3.5-5.0) mmol/L Chloride (101-111) mmol/L Carbon Dioxide (21-32) mmol/L Anion Gap (6-13) BUN (6-20) mg/dL Creatinine (0.4-1.0) mg/dL Estimated GFR (MDRD) (>89) Glucose (70-100) mg/dL Calcium (8.5-10.3) mg/dL Phosphorus (2.5-4.6) mg/dL Iron (28-170) ug/dL TIBC (250-450) ug/dL % Saturation (20-50) % Transferrin (192-382) mg/dL Vitamin B12 (180-914) pg/mL Folate (5.90 - >24.8) ng/mL Coronavirus (PCR) NEGATIVE ABX Reporting Has patient been on IV antibiotics over the past 48 hours?: Yes Assessment/Plan - Problem List (1) Pneumonia due to Hemophilus influenzae (H. influenzae) Impression: Chest x-ray revealed an infiltrate and lower for cultures have grown Haemophilus influenza. She has been treated with ceftriaxone IV. She is no longer hypoxic and saturating well on room air. We will transition her to oral Augmentin to complete her therapy. Qualifiers: Laterality: bilateral (2) Seizure Impression: She had a witnessed seizure in the emergency department and suspect that this is likely related to the ingestion of the drug she took at home as well as Wellbutrin which was started one week ago for smoking cessation. She has no prior history of epilepsy and not had any further seizures while hospitalized despite not being on any antiepileptics. The CT of the head was unremarkable. I will discuss with neurology today regarding the need for antiepileptics but suspect that given this is her first and only episode that appears provoked, she will not need Keppra. Speak with neurology as he is [facility] regarding the patient's case. They agree with holding off antiepileptics. They recommend discontinuing her Wellbutrin given the seizure. She should not drive for 6 months as well. I informed the patient today that she will not be able to drive for 6 months given her seizure. She states that she does not drive in the first place and she gets around with the help of her sister. (3) Drug overdose Impression: She reports taking a pill at home but he is not sure what it was or what happened prior to this hospitalization. She currently denies any suicidal ideations. She does appear to have a flat affect and does appear tearful at times. I am concerned given her history of chronic pain that she may be quite depressed. Social work has been consulted and we are awaiting evaluation by DCR. I suspect that she may benefit from psychiatric evaluation. Qualifiers: Encounter type: initial encounter Injury intent: undetermined intent Qualified Code(s): T50.904A - Poisoning by unspecified drugs, medicaments and biological substances, undetermined, initial encounter (4) Chronic pain Impression: She tells me that she is on Suboxone in the she gets prescribed from [facility]. I will call them today to confirm her dose. This will be resumed once the dosing is confirmed Qualifiers: Chronic pain type: chronic pain syndrome Qualified Code(s): G89.4 - Chronic pain syndrome (5) Tobacco use Impression: He was on Wellbutrin started 1 week ago to help her with smoking cessation. She reports no craving at the moment. We will discontinue Wellbutrin given the seizure. We will taper it over next few days and then stop. (6) Anemia Impression: He may have since resolved. Is likely hemodilution all given the mild IV fluid she received. We will continue DVT prophylaxis.
[2020-03-15] MEDS: CYCLOBENZAPRINE 10 MG TABLET PO PRN ×2 (08:48→15:32)
[2020-03-15] MEDS: THIAMINE 100 MG TABLET PO SCH (08:48)
[2020-03-15] MEDS: FAMOTIDINE 20 MG TABLET PO SCH (08:48)
[2020-03-15] MEDS: buPROPion XL 150 MG TABLET PO SCH (08:48)
[2020-03-15] MEDS: PRENATAL VITAMIN TABLET PO SCH (08:48)
[2020-03-15] MEDS: SACCHAROMYCES BOULARDII 250 MG CAPSULE PO SCH ×2 (08:48→16:33)
[2020-03-15] MEDS: SODIUM CHLORIDE FLUSH 0.9% 10 ML SYRINGE IVP SCH ×2 (08:49→16:33)
[2020-03-15] MEDS: NICOTINE 14 MG PATCH TOP SCH (08:49)
[2020-03-15] MEDS: ACETAMINOPHEN 325 MG TABLET PO PRN ×3 (10:52→20:18)
[2020-03-15] MEDS: polyethylene glycoL 3350 17 GM PACKET PO SCH (10:52)
[2020-03-15] MEDS: cefTRIAXone 2 GM in SODIUM CHLORIDE 0.9% MINIBAG 100 ML IV SCH (13:55)
[2020-03-15] MEDS ORDERED: SODIUM CHLORIDE 0.9% MINIBAG 100 ML IV ONE (13:57)
[2020-03-15] MEDS ORDERED: HYDROmorphone 1 MG/ML CARPUJECT IVP STA (16:22)
[2020-03-15] MEDS ORDERED: HYDROmorphone 2 MG TABLET PO STA (20:56)
[2020-03-16] MEDS: SODIUM CHLORIDE FLUSH 0.9% 10 ML SYRINGE IVP SCH ×2 (02:48→08:54)
[2020-03-16] MEDS: oxyCODONE 5 MG TABLET PO PRN ×3 (03:16→14:16)
[2020-03-16] MEDS: ACETAMINOPHEN 325 MG TABLET PO PRN ×3 (03:16→14:16)
[2020-03-16] MEDS: SODIUM CHLORIDE FLUSH 0.9% 10 ML SYRINGE IVP PRN ×4 (03:17→04:31)
[2020-03-16 05:01] LABS: BASOPHILS % (AUTO) 0.4 %; EOSINOPHILS # (AUTO) 0.3 10^3/uL (0.0-0.7); EOSINOPHILS % (AUTO) 3.6 %; HGB - HEMOGLOBIN 13.8 g/dL (12.0-16.0); LYMPHOCYTES # (AUTO) 1.6 10^3/uL (1.5-3.5); LYMPHOCYTES % (AUTO) 17.5 %; MEAN CORPUSCULAR HEMOGLOBIN 31.7 pg (27.0-31.0); MEAN CORPUSCULAR HGB CONC 33.5 g/dL (32.0-36.0); MEAN CORPUSCULAR VOLUME 94.7 fL (81.0-99.0); MEAN PLATELET VOLUME 8.4 fL (7.9-10.8); MONOCYTES # (AUTO) 0.9 10^3/uL (0.0-1.0); MONOCYTES % (AUTO) 9.7 %; NEUTROPHILS # (AUTO) 6.1 10^3/uL (1.5-6.6); NEUTROPHILS % (AUTO) 68.4 %; PLT - PLATELET COUNT 318 10^3/uL (130-450); RED BLOOD COUNT 4.35 10^6/uL (4.20-5.40); RED CELL DISTRIBUTION WIDTH 12.3 % (12.0-15.0); WHITE BLOOD COUNT 8.9 x10^3/uL (4.8-10.8)
[2020-03-16 05:06] LABS: CALCIUM 9.3 mg/dL (8.5-10.3); CREATININE 0.5 mg/dL (0.4-1.0)
[2020-03-16] MEDS ORDERED: AMOX/CLAV 875 MG/125 MG TABLET PO SCH (08:00)
[2020-03-16] MEDS: SACCHAROMYCES BOULARDII 250 MG CAPSULE PO SCH (08:52)
[2020-03-16] MEDS: THIAMINE 100 MG TABLET PO SCH (08:52)
[2020-03-16] MEDS: CYCLOBENZAPRINE 10 MG TABLET PO PRN (08:52)
[2020-03-16] MEDS: PRENATAL VITAMIN TABLET PO SCH (08:52)
[2020-03-16] MEDS: NICOTINE 14 MG PATCH TOP SCH (08:53)
[2020-03-16] MEDS: polyethylene glycoL 3350 17 GM PACKET PO SCH ×2 (08:53→10:19)
[2020-03-16] MEDS ORDERED: ENOXAPARIN 40 MG/0.4 ML SYRINGE SUBQ SCH (09:00)
[2020-03-16] MEDS ORDERED: SENNA 8.6 MG TABLET PO SCH (09:00)
[2020-03-16] MEDS ORDERED: buPROPion XL 150 MG TABLET PO SCH (09:00)
[2020-03-16] MEDS ORDERED: DOCUSATE SODIUM 250 MG CAPSULE PO SCH (09:00)
--- NOTE | 2020-03-16 14:19 | PROVIDER PROGRESS NOTE ---
Subjective - Prog Note Date Prog Note Date: 03/16/20 - Subjective Subjective: She continues to complain of neck and back pain. This is relieved with oxycodone at times. She denies any suicidal ideations. Reports no chest pain or dyspnea. Current Medications - Current Medications Current Medications: Active Medications Acetaminophen (Tylenol) 650 mg PO Q4HR PRN PRN Reason: Pain or Fever > 38C (100.4F) Last Admin: 03/16/20 14:16 Dose: 650 mg Amoxicillin/Clavulanate Potassium (Augmentin 875/125) 1 tab PO BIDWM [facility] Last Admin: 03/16/20 09:02 Dose: 1 tab Bupropion HCl (Wellbutrin Xl) 150 mg PO DAILY [facility] Last Admin: 03/16/20 08:52 Dose: 150 mg Cyclobenzaprine HCl (Flexeril) 10 mg PO TID PRN PRN Reason: MUSCLE SPASM Last Admin: 03/16/20 08:52 Dose: 10 mg Docusate Sodium (Colace 250mg Capsule) 250 - 500 mg PO DAILY [facility] Last Admin: 03/16/20 10:31 Dose: 250 mg Enoxaparin Sodium (Lovenox) 40 mg SUBQ DAILY [facility] Last Admin: 03/16/20 08:53 Dose: 40 mg Heparin Sodium (Beef Lung) () 30 - 50 unit IVP PRN PRN PRN Reason: Central Line Protocol (<24 hr) Last Admin: 03/15/20 04:27 Dose: 50 unit Nicotine (Nicoderm) 1 patch TOP DAILY [facility] Last Admin: 03/16/20 08:53 Dose: 1 patch Ondansetron HCl (Zofran Odt) 4 mg PO DAILY PRN PRN Reason: Nausea / Vomiting Last Admin: 03/14/20 13:21 Dose: 4 mg Oxycodone HCl (Roxicodone) 15 mg PO Q6H PRN PRN Reason: PAIN Last Admin: 03/16/20 14:16 Dose: 15 mg Polyethylene Glycol (Miralax) 17 gm PO DAILY [facility] Last Admin: 03/16/20 10:19 Dose: Not Given Multivit/Folic Acid/Iron (Trinatal Rx 1) 1 tab PO DAILYWM [facility] Last Admin: 03/16/20 08:52 Dose: 1 tab Saccharomyces Boulardii (Florastor) 250 mg PO BIDWM [facility] Last Admin: 03/16/20 08:52 Dose: 250 mg Senna (Senokot) 8.6 - 17.2 mg PO DAILY [facility] Last Admin: 03/16/20 10:31 Dose: 17.2 mg Sodium Chloride (Normal Saline Flush 0.9%) 10 ml IVP 0100,0900,1700 [facility] Last Admin: 03/16/20 08:54 Dose: 10 ml Sodium Chloride (Normal Saline Flush 0.9%) 10 ml IVP PRN PRN PRN Reason: NEEDED PER PROVIDER ORDERS Last Admin: 03/16/20 04:31 Dose: 10 ml Sodium Chloride (Normal Saline Flush 0.9%) 20 ml IVP PRN PRN PRN Reason: After Blood Draw Last Admin: 03/16/20 04:30 Dose: 20 ml Thiamine HCl (Vitamin B-1) 100 mg PO DAILY [facility] Last Admin: 03/16/20 08:52 Dose: 100 mg Throat Lozenges (Cepacol) 1 lozenge MM Q2HR PRN PRN Reason: Throat pain Last Admin: 03/14/20 05:34 Dose: 1 lozenge Trazodone HCl (Desyrel) 50 mg PO QPM PRN PRN Reason: Insomnia Last Admin: 03/14/20 22:34 Dose: 50 mg buprenorphine HCL [Buprenorphine HCl] 24 mg SL DAILY 05/07/17 Alendronate Sodium 70 mg PO Q7D 03/12/20 Bupropion HCl [Bupropion Xl] 300 mg PO DAILY 03/12/20 Cyclobenzaprine HCl 10 mg PO TID PRN 03/12/20 Ondansetron [Ondansetron Odt] 4 mg PO DAILY PRN 03/12/20 Oxycodone HCl 15 mg PO Q6H 03/12/20 Trazodone HCl 50 mg PO QPM PRN 03/12/20 Objective - Vital Signs/Intake & Output Reviewed Vital Signs: Yes Vital Signs: Vital Signs x48h Temp Pulse Resp BP BP Pulse Ox 03/16/20 12:12 36.3 C L 112 H 15 147/87 H 95 03/16/20 09:08 84 102/66 03/16/20 08:00 36.9 C 98 17 125/70 97 Intake & Output: Intake & Output 03/13/20 03/14/20 03/15/20 03/16/20 23:59 23:59 23:59 23:59 Intake Total 3747.584 5329.166 1260 60 Output Total 7300 880 Balance -5589.649 8337.166 1260 60 - Objective General Appearance: positive: No acute distress, Alert Eyes Bilateral: positive: Normal inspection ENT: positive: ENT inspection nml Neck: positive: Nml inspection Respiratory: positive: No respiratory distress. negative: Wheezes, Rales Cardiovascular: positive: Regular rate & rhythm, No murmur. negative: Tachycardia Abdomen: positive: Non-tender, No distention. negative: Tenderness Skin: positive: Warm, Dry Extremities: positive: Full ROM, No pedal edema Neurologic/Psychiatric: positive: Oriented x3. negative: Disoriented to person, Disoriented to place, Disoriented to time - Lab Results Fish Bones: 03/16/20 04:25 03/16/20 04:25 Other Labs: Lab Results x24hrs 03/16/20 03/16/20 03/14/20 Range/Units 04:25 04:25 13:05 WBC 8.9 (4.8-10.8) x10^3/uL RBC 4.35 (4.20-5.40) 10^6/uL Hgb 13.8 (12.0-16.0) g/dL Hct 41.2 (37.0-47.0) % MCV 94.7 (81.0-99.0) fL MCH 31.7 H (27.0-31.0) pg MCHC 33.5 (32.0-36.0) g/dL RDW 12.3 (12.0-15.0) % Plt Count 318 (130-450) 10^3/uL MPV 8.4 (7.9-10.8) fL Neut # (Auto) 6.1 (1.5-6.6) 10^3/uL Lymph # (Auto) 1.6 (1.5-3.5) 10^3/uL [place] # (Auto) 0.9 (0.0-1.0) 10^3/uL Eos # (Auto) 0.3 (0.0-0.7) 10^3/uL Baso # (Auto) 0.0 (0.0-0.1) 10^3/uL Absolute Nucleated RBC 0.00 x10^3/uL Nucleated RBC % 0.0 /100WBC Sodium 136 (135-145) mmol/L Potassium 4.0 (3.5-5.0) mmol/L Chloride 102 (101-111) mmol/L Carbon Dioxide 26 (21-32) mmol/L Anion Gap 8.0 (6-13) BUN 12 (6-20) mg/dL Creatinine 0.5 (0.4-1.0) mg/dL Estimated GFR (MDRD) 124 (>89) Glucose 138 H (70-100) mg/dL POC Whole Bld Glucose 139 H (70 - 100) mg/dL Calcium 9.3 (8.5-10.3) mg/dL 03/14/20 03/14/20 03/14/20 Range/Units 08:23 05:31 00:45 WBC (4.8-10.8) x10^3/uL RBC (4.20-5.40) 10^6/uL Hgb (12.0-16.0) g/dL Hct (37.0-47.0) % MCV (81.0-99.0) fL MCH (27.0-31.0) pg MCHC (32.0-36.0) g/dL RDW (12.0-15.0) % Plt Count (130-450) 10^3/uL MPV (7.9-10.8) fL Neut # (Auto) (1.5-6.6) 10^3/uL Lymph # (Auto) (1.5-3.5) 10^3/uL [place] # (Auto) (0.0-1.0) 10^3/uL Eos # (Auto) (0.0-0.7) 10^3/uL Baso # (Auto) (0.0-0.1) 10^3/uL Absolute Nucleated RBC x10^3/uL Nucleated RBC % /100WBC Sodium (135-145) mmol/L Potassium (3.5-5.0) mmol/L Chloride (101-111) mmol/L Carbon Dioxide (21-32) mmol/L Anion Gap (6-13) BUN (6-20) mg/dL Creatinine (0.4-1.0) mg/dL Estimated GFR (MDRD) (>89) Glucose (70-100) mg/dL POC Whole Bld Glucose 174 H 150 H 146 H (70 - 100) mg/dL Calcium (8.5-10.3) mg/dL 03/13/20 03/13/20 03/13/20 Range/Units 17:36 11:47 05:27 WBC (4.8-10.8) x10^3/uL RBC (4.20-5.40) 10^6/uL Hgb (12.0-16.0) g/dL Hct (37.0-47.0) % MCV (81.0-99.0) fL MCH (27.0-31.0) pg MCHC (32.0-36.0) g/dL RDW (12.0-15.0) % Plt Count (130-450) 10^3/uL MPV (7.9-10.8) fL Neut # (Auto) (1.5-6.6) 10^3/uL Lymph # (Auto) (1.5-3.5) 10^3/uL [place] # (Auto) (0.0-1.0) 10^3/uL Eos # (Auto) (0.0-0.7) 10^3/uL Baso # (Auto) (0.0-0.1) 10^3/uL Absolute Nucleated RBC x10^3/uL Nucleated RBC % /100WBC Sodium (135-145) mmol/L Potassium (3.5-5.0) mmol/L Chloride (101-111) mmol/L Carbon Dioxide (21-32) mmol/L Anion Gap (6-13) BUN (6-20) mg/dL Creatinine (0.4-1.0) mg/dL Estimated GFR (MDRD) (>89) Glucose (70-100) mg/dL POC Whole Bld Glucose 120 H 82 163 H (70 - 100) mg/dL Calcium (8.5-10.3) mg/dL 03/13/20 03/12/20 03/12/20 Range/Units 00:09 17:39 12:25 WBC (4.8-10.8) x10^3/uL RBC (4.20-5.40) 10^6/uL Hgb (12.0-16.0) g/dL Hct (37.0-47.0) % MCV (81.0-99.0) fL MCH (27.0-31.0) pg MCHC (32.0-36.0) g/dL RDW (12.0-15.0) % Plt Count (130-450) 10^3/uL MPV (7.9-10.8) fL Neut # (Auto) (1.5-6.6) 10^3/uL Lymph # (Auto) (1.5-3.5) 10^3/uL [place] # (Auto) (0.0-1.0) 10^3/uL Eos # (Auto) (0.0-0.7) 10^3/uL Baso # (Auto) (0.0-0.1) 10^3/uL Absolute Nucleated RBC x10^3/uL Nucleated RBC % /100WBC Sodium (135-145) mmol/L Potassium (3.5-5.0) mmol/L Chloride (101-111) mmol/L Carbon Dioxide (21-32) mmol/L Anion Gap (6-13) BUN (6-20) mg/dL Creatinine (0.4-1.0) mg/dL Estimated GFR (MDRD) (>89) Glucose (70-100) mg/dL POC Whole Bld Glucose 140 H 70 82 (70 - 100) mg/dL Calcium (8.5-10.3) mg/dL 03/11/20 Range/Units 23:49 WBC (4.8-10.8) x10^3/uL RBC (4.20-5.40) 10^6/uL Hgb (12.0-16.0) g/dL Hct (37.0-47.0) % MCV (81.0-99.0) fL MCH (27.0-31.0) pg MCHC (32.0-36.0) g/dL RDW (12.0-15.0) % Plt Count (130-450) 10^3/uL MPV (7.9-10.8) fL Neut # (Auto) (1.5-6.6) 10^3/uL Lymph # (Auto) (1.5-3.5) 10^3/uL [place] # (Auto) (0.0-1.0) 10^3/uL Eos # (Auto) (0.0-0.7) 10^3/uL Baso # (Auto) (0.0-0.1) 10^3/uL Absolute Nucleated RBC x10^3/uL Nucleated RBC % /100WBC Sodium (135-145) mmol/L Potassium (3.5-5.0) mmol/L Chloride (101-111) mmol/L Carbon Dioxide (21-32) mmol/L Anion Gap (6-13) BUN (6-20) mg/dL Creatinine (0.4-1.0) mg/dL Estimated GFR (MDRD) (>89) Glucose (70-100) mg/dL POC Whole Bld Glucose 101 H (70 - 100) mg/dL Calcium (8.5-10.3) mg/dL ABX Reporting Has patient been on IV antibiotics over the past 48 hours?: Yes Assessment/Plan - Problem List (1) Pneumonia due to Hemophilus influenzae (H. influenzae) Impression: She has been transitioned to Augmentin p.o. Today is day 5 out of 7. She is no longer hypoxic and is saturating well on room air. Qualifiers: Laterality: bilateral (2) Seizure Impression: This was likely secondary to her Wellbutrin which was started 1 week prior to admission for smoking cessation. CT of the head was unremarkable. I did discuss with neurology at [facility] and they recommend discontinuing the Wellbutrin and no antibiotics at this time. We have began to wean her off of the Wellbutrin and will continue to do so. Seizure precautions. (3) Drug overdose Impression: There was concern for possible suicidal ideations and she is in the emergency department but she currently denies any suicidal thoughts. She has been evaluated by DCR and we are awaiting their decision if she will need placement. Qualifiers: Encounter type: initial encounter Injury intent: undetermined intent Qualified Code(s): T50.904A - Poisoning by unspecified drugs, medicaments and biological substances, undetermined, initial encounter (4) Chronic pain Impression: She has chronic back pain and reports she scheduled to follow-up with [facility] for surgical intervention. This was postponed due to the coronavirus. She is on buprenorphine at home and this dose has been confirmed by on 4 she do not carry it here in the hospital. She was prescribed oxycodone by her primary care provider earlier on this month and so we will continue her on oxycodone 15 mg every 6 hours as needed as well as Tylenol and Flexeril. She will only be discharged on buprenorphine 24 mg daily in addition to tylenol and flexeril. Qualifiers: Chronic pain type: chronic pain syndrome Qualified Code(s): G89.4 - Chronic pain syndrome (5) Tobacco use Impression: She was on Wellbutrin which likely triggered her seizure. She currently reports no cravings. We have decreased her Wellbutrin to 150 mg daily from 300 mg and will taper over the next few days.
--- NOTE | 2020-03-16 15:01 | Discharge Plan ---
Discharge Plan Problem Reviewed?: Yes Disposition: Home, Self Care Condition: Good Prescriptions: Amox/Clav 875/125 [Augmentin 875/125] 1 tab PO BIDWM #5 tablet buPROPion [Wellbutrin Xl] 150 mg PO DAILY #3 tablet Nicotine 14 mg Patch [Nicoderm] 1 patch TOP DAILY #14 patch Diet: Regular Activity Restrictions: Activity as Tolerated Shower Restrictions: No Driving Restrictions: Yes (You cannot drive for 6 months given you had a seizure.) Instruction Topics: Trazodone tablets Health Concerns: You were admitted to the hospital after you had a seizure in the emergency department. This was attributed to the Wellbutrin you had been taking to quit smoking. You had no more seizures since he been hospitalized. He did require to be placed on a breathing machine due to the seizures. You developed a pneumonia and you have been treated with IV antibiotics. You are now on an oral antibiotic called Augmentin which you will need to continue to take as prescribed. Plan of Treatment: Please take the Augmentin as prescribed twice a day. Your next dose will be this evening and then for 2 more days. Your Wellbutrin will need to be tapered. I provided you with a new prescription for Wellbutrin 150 mg take daily for the next 3 days and then stop. I have provided you with a prescription for nicotine patch if you would like to use them. You can continue to take your buprenorphine as previously prescribed by [facility]. There were no other changes made to your medications. Care Goals: Please follow-up with your primary care physician within 1 week. If you develop any worsening symptoms or seizures, then please return to the emergency department. Assessment: The patient expressed understanding of the treatment plan. No Smoking: If you smoke, Please STOP! Call for help. Follow-up with: FLOWER TRIANA MD [Primary Care Provider] -
--- NOTE | 2020-03-16 15:07 | DISCHARGE SUMMARY ---
"Discharge Summary Admit Date: 03/11/20 Discharge Date: 03/16/20 Discharging Provider: Kel Ivey Primary Care Provider: Emeterio Klein Code Status: Attempt Resuscitation Condition at Discharge: Good Discharge Disposition: 01 Home, Self Care - DIAGNOSES Admission Diagnoses: Seizure Altered mental status Hypertension Depressive disorder Discharge Diagnoses with Status of Each Condition: Pneumonia due to Haemophilus influenza - improving Seizure - resolved. Drug overdose - resolved. Chronic pain - stable. Tobacco use - stable. - HPI History of Present Illness: H&P per Dr. Saunders on 03/11/20: This history is obtained from the HPI of the ED H&P because the patient is currently sedated and intubated and unable to provide history. Patient is a 65-year-old female with previous history of alcohol abuse who was brought to the ED by EMS. Per EMS the patient stated that she took a pill ye sterday which she suspects may have been laced with something. She has been acting oddly ever since. They also reported that she had made a statement threatening to jump out of her window. However it appears the patient denied this when asked in the ED. It is reported that she has not drank alcohol in 3 years. Upon presentation to the ED she was somewhat belligerent. While she was being worked up in the ED she had a seizure. This was followed by another seizure 20 minutes later. As a result her mental status was altered and she had a GCS of 6. Consequently she was intubated and presented for admission. Work-up included CBC and BMP. Of note was a white blood cell count of 13.6 and a potassium level of 2.7. CT scan of the brain was unremarkable. - CONSULTS | PROCEDURES Consultations: Social Work, DCR. Procedures: CT of the head showed no acute abnormalities. Intubation which was performed by the emergency department physician. - HOSPITAL COURSE Hospital Course: She was admitted to the intensive care unit after she had 2 witnessed seizures in the emergency department and required intubation for airway protection. A CT scan of the head was unremarkable. It was felt that the seizure may have been secondary to Wellbutrin which she had been started on a 1 week prior for smoking cessation. There was initial concern that she may have ingested a pill which may have also triggered the seizure. Her urine toxicology showed oxycodone, TCAs, marijuana. She spiked a fever shortly after admission and there is concern for possible pneumonia. She was checked for COVID-19 and this was negative. She was treated empirically with IV azithromycin and ceftriaxone. Lower respiratory cultures grew Haemophilus influenza and she was ultimately transitioned to oral Augmentin. Her COVID 19 PCR test was negative. She was extubated on hospital day 2. Patient was unable to provide further history after she was extubated. She did not recall what happened prior to her admiss ion. She denied any suicidal ideations or thoughts. Social work was consulted and the patient was evaluated by DCR. It was ultimately felt that she did not require inpatient treatment and it was felt that she could be discharged home. During the hospitalization, her chronic pain was treated with oral oxycodone, Tylenol, Flexeril. Her buprenorphine dose was confirmed but unfortunately we do not carry it here in the hospital and we were unable to continue it. She will be discharged on just her home dose of buprenorphine on and did not provide her with a prescription as she states she really has the medication at home and she follows with [facility] and [place]. I did prescribe her Augmentin for 2 more days to complete 7 days of therapy for the Haemophilus influenza pneumonia. I did discuss with neurology regarding her seizures and they felt that she did not need any antiepileptics on discharge. They did recommend discontinuing her Wellbutrin and she was provided with a lower dose of 150 mg for 3 more days as her taper. - ALLERGIES Allergies/Adverse Reactions: Allergies Allergy/AdvReac Type Severity Reaction Status Date / Time aspirin AdvReac Nausea Verified 01/05/17 12:21 NSAIDS (Non-Steroidal AdvReac Nausea Verified 01/05/17 12:21 Anti-Inflamma - MEDICATIONS Home Medications: Ambulatory Orders Medication Instructions Recorded Confirmed buprenorphine HCL [Buprenorphine 24 mg SL DAILY 05/07/17 03/12/20 HCl] Alendronate Sodium 70 mg PO Q7D 03/12/20 03/12/20 Bupropion HCl [Bupropion Xl] 300 mg PO DAILY 03/12/20 03/12/20 Cyclobenzaprine HCl 10 mg PO TID PRN 03/12/20 03/12/20 Ondansetron [Ondansetron Odt] 4 mg PO DAILY PRN 03/12/20 03/12/20 Trazodone HCl 50 mg PO QPM PRN 03/12/20 03/12/20 Amox/Clav 875/125 [Augmentin 1 tab PO BIDWM #5 tablet 03/16/20 875/125] Nicotine 14 mg Patch [Nicoderm] 1 patch TOP DAILY #14 patch 03/16/20 buPROPion [Wellbutrin Xl] 150 mg PO DAILY #3 tablet 03/16/20 - PHYSICAL EXAM AT DISCHARGE General Appearance: positive: No acute distress, Alert Eyes Bilateral: positive: Normal inspection ENT: positive: ENT inspection nml Neck: positive: Nml inspection Respiratory: positive: No respiratory distress. negative: Wheezes, Rales Cardiovascular: positive: Regular rate & rhythm, No murmur. negative: Tachycardia Abdomen: positive: Non-tender, No distention. negative: Tenderness Skin: positive: No rash, Warm, Dry Extremities: positive: Full ROM, No pedal edema Neurologic/Psychiatric: positive: Oriented x3. negative: Disoriented to person, Disoriented to place, Disoriented to time - LABS Result Diagrams: 03/16/20 04:25 03/16/20 04:25 Other Lab Results: Laboratory Results - last 24 hr 03/11/20 03/12/20 03/12/20 23:49 12:25 17:39 WBC RBC Hgb Hct MCV MCH MCHC RDW Plt Count MPV Neut # (Auto) Lymph # (Auto) [place] # (Auto) Eos # (Auto) Baso # (Auto) Absolute Nucleated RBC Nucleated RBC % Sodium Potassium Chloride Carbon Dioxide Anion Gap BUN Creatinine Estimated GFR (MDRD) Glucose POC Whole Bld Glucose 101 H 82 70 Calcium 03/13/20 03/13/20 03/13/20 00:09 05:27 11:47 WBC RBC Hgb Hct MCV MCH MCHC RDW Plt Count MPV Neut # (Auto) Lymph # (Auto) [place] # (Auto) Eos # (Auto) Baso # (Auto) Absolute Nucleated RBC Nucleated RBC % Sodium Potassium Chloride Carbon Dioxide Anion Gap BUN Creatinine Estimated GFR (MDRD) Glucose POC Whole Bld Glucose 140 H 163 H 82 Calcium 03/13/20 03/14/20 03/14/20 17:36 00:45 05:31 WBC RBC Hgb Hct MCV MCH MCHC RDW Plt Count MPV Neut # (Auto) Lymph # (Auto) [place] # (Auto) Eos # (Auto) Baso # (Auto) Absolute Nucleated RBC Nucleated RBC % Sodium Potassium Chloride Carbon Dioxide Anion Gap BUN Creatinine Estimated GFR (MDRD) Glucose POC Whole Bld Glucose 120 H 146 H 150 H Calcium 03/14/20 03/14/20 03/16/20 08:23 13:05 04:25 WBC 8.9 RBC 4.35 Hgb 13.8 Hct 41.2 MCV 94.7 MCH 31.7 H MCHC 33.5 RDW 12.3 Plt Count 318 MPV 8.4 Neut # (Auto) 6.1 Lymph # (Auto) 1.6 [place] # (Auto) 0.9 Eos # (Auto) 0.3 Baso # (Auto) 0.0 Absolute Nucleated RBC 0.00 Nucleated RBC % 0.0 Sodium Potassium Chloride Carbon Dioxide Anion Gap BUN Creatinine Estimated GFR (MDRD) Glucose POC Whole Bld Glucose 174 H 139 H Calcium 03/16/20 04:25 WBC RBC Hgb Hct MCV MCH MCHC RDW Plt Count MPV Neut # (Auto) Lymph # (Auto) [place] # (Auto) Eos # (Auto) Baso # (Auto) Absolute Nucleated RBC Nucleated RBC % Sodium 136 Potassium 4.0 Chloride 102 Carbon Dioxide 26 Anion Gap 8.0 BUN 12 Creatinine 0.5 Estimated GFR (MDRD) 124 Glucose 138 H POC Whole Bld Glucose Calcium 9.3 Microbiology 03/12/20 11:56 Blood - Central Line Blood Culture - Preliminary NO GROWTH AFTER 2 DAYS 03/12/20 11:56 Sputum Aspirate Respiratory Culture - Final Haemophilus Influenzae 03/12/20 11:54 Urine,Catheterized Urine Culture - Final NO AEROBIC GROWTH AT 24 HOURS - DIAGNOSTIC IMAGING Diagnostic Imaging Results: Final report reviewed - FOLLOW UP Follow Up: She was asked to follow-up with her primary care physician within 1 week. - TIME SPENT Time Spent in Discharge (Minutes): 35"
[2020-03-16 15:54] VITALS: BP 143/88
== END 2020-03-16 16:08 | disposition home or self-care (01) | DRG 100 ==
LOC: EDUNIT# → ED 17:37 → ICU 20:52
PROVIDERS: ADMIT Internal Medicine; ATTEND Internal Medicine
PROC: 5A1945Z Respiratory Ventilation, 24-96 Consecutive Hours (ICD-10-PCS; principal; 2020-03-11)
DX: R56.9 Unspecified convulsions (principal); J14 Pneumonia due to Hemophilus influenzae; J96.00 Acute respiratory failure, unspecified whether with hypoxia or hypercapnia; R45.851 Suicidal ideations; T43.295A Adverse effect of other antidepressants, initial encounter; T50.904A Poisoning by unspecified drugs, medicaments and biological substances, undetermined, initial encounter; Y92.009 Unspecified place in unspecified non-institutional (private) residence as the place of occurrence of the external cause; F10.11 Alcohol abuse, in remission; F32.9 Major depressive disorder, single episode, unspecified; G89.4 Chronic pain syndrome; F41.9 Anxiety disorder, unspecified; E87.6 Hypokalemia; E83.39 Other disorders of phosphorus metabolism; F17.210 Nicotine dependence, cigarettes, uncomplicated; D64.9 Anemia, unspecified; I10 Essential (primary) hypertension; Z20.828 Contact with and (suspected) exposure to other viral communicable diseases; M54.9 Dorsalgia, unspecified; M54.2 Cervicalgia; R82.5 Elevated urine levels of drugs, medicaments and biological substances; Z79.891 Long term (current) use of opiate analgesic; Z79.52 Long term (current) use of systemic steroids; Z79.899 Other long term (current) drug therapy
CPT/HCPCS: 31500; 36415; 36556; 36600; 70450; 71045; 80048; 80053; 80306; 80307; 80320; 80329; 81001; 82040; 82330; 82607; 82746; 82803; 83540; 83690; 83735; 84100; 84443; 84466; 85025; 87040; 87070; 87077; 87086; 87150; 87205; 87635; 93005; 94002; 94003; 96365; 96372; 96375; 99291; 99406; A9270; J1170; J1650; J2060; J3411; J7040; Q0162; 81003; 81599; 94770

== ENCOUNTER 2020-08-02 10:30 | Outpatient (CLI) | payer MEDICAID | END 2020-08-02 10:31 | disposition critical access hospital (66) | LOC: EMS 10:30 | PROVIDERS: ATTEND Surgery | DX: M54.2 Cervicalgia (principal); M25.512 Pain in left shoulder; M25.511 Pain in right shoulder; W06.XXXA Fall from bed, initial encounter; Y92.032 Bedroom in apartment as the place of occurrence of the external cause | CPT/HCPCS: A0425; A0429; A0999 ==

== ENCOUNTER 2020-08-02 10:50 | Emergency (ER) | payer MEDICAID ==
--- NOTE | 2020-08-02 11:26 | ED Physician Documentation ---
PD HPI Fall - Stated complaint Stated Complaint: GLF - Chief complaint Chief Complaint: Trauma Hd/Nk - History obtained from History obtained from: Patient - History of Present Illness Mechanism of injury: Other (fell out of bed) Fall distance: From bed Where injury occurred: Home Timing - onset: Last night Injury(ies) location: Neck, Back Quality of pain: Pain Associated symptoms: No: LOC, AMS, Amnesia Symptoms improve with: Rest, Position Worsens with: Movement, Palpation Contributing factors: No: Anticoagulated Similar symptoms before: Diagnosis (spine fracture and hardware loosening) Recently [place] [facility] [place] - Additional information Additional information: 65-year-old female well-known to the emergency department for prior incidences of alcohol induced problems has not been drinking for 3 years and she hs recently had a procedure for fusion of T4-T11 done at [facility] in June of this year. She has been recovering at home after being in the [place] [facility] and she has been back at home for about 3 weeks. She does have a visiting nurse that comes in daily. She fell out of bed last night and was wedged between a chair and the night stand for about 30 minutes. She was able to get herself back up into bed and she has pain in her neck and upper back. Her visiting nurse insisted she come to the emergency department for evaluation today and she is brought here by ambulance. Review of Systems Constitutional: denies: Fever Eyes: denies: Decreased vision Ears: denies: Ear pain Nose: denies: Rhinorrhea / runny nose, Congestion Throat: denies: Sore throat Cardiac: denies: Chest pain / pressure Respiratory: denies: Dyspnea, Cough, Wheezing GI: denies: Abdominal Pain : denies: Dysuria Skin: denies: Rash Musculoskeletal: reports: Neck pain, Back pain Neurologic: denies: Generalized weakness, Focal weakness, Numbness, Difficulty speaking, Confused, Headache, Head injury, LOC PD PAST MEDICAL HISTORY - Past Medical History Past Medical History: Yes Cardiovascular: Hypertension Respiratory: None Neuro: None, Other Endocrine/Autoimmune: None GI: GERD, C.difficile, 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 : None HEENT: None Psych: Depression, Anxiety, Other Musculoskeletal: Osteoporosis, Chronic back pain Derm: None - Past Surgical History Past Surgical History: Yes General: Cholecystectomy, Appendectomy, Bowel surgery, Colonoscopy Ortho: Spine surgery /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: Hysterectomy, Oophrectomy - Present Medications Home Medications: Ambulatory Orders Medication Instructions Recorded Confirmed buprenorphine HCL [Buprenorphine 24 mg SL DAILY 05/07/17 03/12/20 HCl] Alendronate Sodium 70 mg PO Q7D 03/12/20 03/12/20 Bupropion HCl [Bupropion Xl] 300 mg PO DAILY 03/12/20 03/12/20 Cyclobenzaprine HCl 10 mg PO TID PRN 03/12/20 03/12/20 Ondansetron [Ondansetron Odt] 4 mg PO DAILY PRN 03/12/20 03/12/20 Trazodone HCl 50 mg PO QPM PRN 03/12/20 03/12/20 Amox/Clav 875/125 [Augmentin 1 tab PO BIDWM #5 tablet 03/16/20 875/125] Nicotine 14 mg Patch [Nicoderm] 1 patch TOP DAILY #14 patch 03/16/20 buPROPion [Wellbutrin Xl] 150 mg PO DAILY #3 tablet 03/16/20 - Allergies Allergies/Adverse Reactions: Allergies Allergy/AdvReac Type Severity Reaction Status Date / Time aspirin AdvReac Nausea Verified 08/02/20 10:59 NSAIDS (Non-Steroidal AdvReac Nausea Verified 08/02/20 10:59 Anti-Inflamma - Social History Does the pt smoke?: No Smoking Status: Former smoker Does the pt drink ETOH?: Yes Does the pt have substance abuse?: Yes - Immunizations Immunizations are current?: Yes Immunizations: TDAP >10years/unknown, Other immun current - POLST Patient has POLST: No POLST Status: Full Code PD ED PE NORMAL - Vitals Vital signs reviewed: Yes (normal ) - General General: Alert and oriented X 3, No acute distress, Well developed/nourished - HEENT HEENT: Atraumatic, PERRL, EOMI, Other (deep palpation of the head without specific tenderness ) - Neck Neck: Supple, no meningeal sign, Other (There is tenderness to the lower C-spine midline and to the upper T-spine at the upper end of the recent surgical incision and above. ) - Cardiac Cardiac: RRR, No murmur - Respiratory Respiratory: No respiratory distress, Clear bilaterally - Abdomen Abdomen: Soft, Non tender - Derm Derm: Normal color, Warm and dry, No rash - Extremities Extremities: No deformity, No tenderness to palpate, Other (There is swelling to both LE pitting edema. looks like dependent edema. ) - Neuro Neuro: Alert and oriented X 3, electric operator 2-12 intact, No motor deficit, No sensory deficit, Normal speech Eye Opening: Spontaneous Motor: Obeys Commands Verbal: Oriented GCS Score: 15 - Psych Psych: Normal mood, Normal affect Results - Vitals Vitals: Vital Signs - 24 hr 08/02/20 08/02/20 08/02/20 10:59 11:13 13:12 Temperature 36.8 C 36.7 C Heart Rate 97 97 97 Respiratory 24 20 20 Rate Blood Pressure 121/61 115/63 118/68 O2 Saturation 99 100 98 Oxygen O2 Source [] Nasal cannula O2 Source [] Nasal cannula O2 Source Room air - Rads (name of study) C-spine Radiology: Prelim report reviewed (IMPRESSION: No CT evidence of acute traumatic cervical spine injury), EMP read indepedently, See rad report T spine Radiology: Prelim report reviewed (Impression: No CT evidence of acute traumatic thoracic spine injury.), EMP read indepedently, See rad report PD MEDICAL DECISION MAKING - ED course Complexity details: reviewed old records, reviewed results, re-evaluated patient, considered differential, d/w patient ED course: fully awake and interactive with complaints of pain in the lower C-spine and upper thoracic spine. The patient has had recent surgery to the thoracic spine and a prior history of hardware loosening with similar incident. On arrival the patient has no neuro-deficit and imaging is obtained. She does have some dependent edema. No overt evidence of fracture or hardware loosening. Departure - Departure Disposition: 01 Home, Self Care Clinical Impression: Cervical strain, acute Qualifiers: Encounter type: initial encounter Qualified Code(s): S16.1XXA - Strain of muscle, fascia and tendon at neck level, initial encounter Contusion of upper back Qualifiers: Encounter type: initial encounter Laterality: unspecified laterality Qualified Code(s): S20.229A - Contusion of unspecified back wall of thorax, initial encounter Condition: Stable Instructions: ED Contusion Back, ED Sprain Strain Neck Follow-Up: FLOWER TRIANA MD [Primary Care Provider] - Discharge Date/Time: 08/02/20 13:54
--- NOTE | 2020-08-02 12:33 | CT Report ---
PROCEDURE: CERVICAL SPINE WO INDICATIONS: fall out of bed neck and upper back pain TECHNIQUE: Noncontrast 3 mm thick sections acquired from the skull base to the T4 level. Sagittal and coronal r eformats were then constructed. For radiation dose reduction, the following was used: automated exp osure control, adjustment of mA and/or kV according to patient size. COMPARISON: None. FINDINGS: Image quality: Excellent. Bones: No acute fracture demonstrated. The facets are congruent without evidence of subluxation or di slocation. There is anterolisthesis of C3 on C4 which is presumably degenerative as there is also ret rolisthesis of C4 with respect to C5 and extensive degenerative changes in the cervical spine. Alignm ent is otherwise normal. Partially visualized thoracic fusion hardware. Soft tissues: Prevertebral soft tissues are normal in thickness. No paravertebral hematomas. No ap ical pneumothoraces. IMPRESSION: No CT evidence of acute traumatic cervical spine injury. Reviewed by: Jayson Goldstein MD on 08/02/2020 12:32 PM PDT Approved by: Jayson Goldstein MD on 08/02/2020 12:32 PM PDT Station ID: [id number]
--- NOTE | 2020-08-02 12:35 | CT Report ---
PROCEDURE: THORACIC SPINE WO INDICATIONS: fall OOB neck upper back pain new hardware TECHNIQUE: Noncontrast 3 mm thick sections acquired through the region of interest in the thoracic spine. Sagit giovanni and coronal reformats were then constructed. For radiation dose reduction, the following was used : automated exposure control, adjustment of mA and/or kV according to patient size. COMPARISON: None. FINDINGS: Image quality: Excellent. Bones: Extensive thoracic and lumbar fusion hardware is present, creating streak artifact which limit s evaluation slightly. Within this limitation, there is no evidence of an acute fracture or acute com plicating hardware feature. Hardware appears unchanged when compared with 07/29/2019 exam. Alignment i s within normal limits. Regional soft tissues: No paravertebral masses or hematomas. Visualized posteromedial lungs appear clear. IMPRESSION: No CT evidence of acute traumatic thoracic spine injury. Reviewed by: Jayson Goldstein MD on 08/02/2020 12:34 PM PDT Approved by: Jayson Goldstein MD on 08/02/2020 12:34 PM PDT Station ID: [id number]
[2020-08-02 13:13] VITALS: BP 118/68
== END 2020-08-02 13:54 | disposition home or self-care (01) ==
LOC: EDUNIT# → ED 10:50
DX: S16.1XXA Strain of muscle, fascia and tendon at neck level, initial encounter (principal); S20.229A Contusion of unspecified back wall of thorax, initial encounter; W06.XXXA Fall from bed, initial encounter; Y92.003 Bedroom of unspecified non-institutional (private) residence as the place of occurrence of the external cause; Z98.1 Arthrodesis status; I10 Essential (primary) hypertension; Z87.891 Personal history of nicotine dependence
CPT/HCPCS: 72125; 72128; 99284

== ENCOUNTER 2020-08-03 15:27 | Outpatient (CLI) | payer MEDICAID | END 2020-08-03 15:28 | disposition critical access hospital (66) | LOC: EMS 15:27 | PROVIDERS: ATTEND Surgery | DX: R07.81 Pleurodynia (principal); R10.11 Right upper quadrant pain; W18.30XA Fall on same level, unspecified, initial encounter | CPT/HCPCS: A0425; A0429; A0999 ==

== ENCOUNTER 2020-08-03 15:50 | Inpatient (IN) | payer MEDICAID ==
--- NOTE | 2020-08-03 16:24 | ED Physician Documentation ---
History of Present Illness - Stated complaint Stated Complaint: ABD PX - Chief complaint Chief Complaint: Abd Pain - History obtained from History obtained from: Patient - Additonal information Additional information: 65-year-old female presents to the emergency department for evaluation of right lateral thoracic wall pain and right-sided abdominal pain after a fall at home last night. She reports that she was heating water at the stove developed back pain and then felt her legs give out. She fell onto her right side. She denies any loss of consciousness headache. She is able to get up on her own and ambulate. She has been walking this morning but she spoke to her sister about the fall last night and her sister requested she come to the ER for evaluation. She does have a history of recent thoracic spinal fixation at [facility] in early June. She has an extensive opioid history also that includes OxyContin and morphine extended release tablets. She denies that she has exertional chest pain but it does hurt to take a deep breath. She denies fevers or cough. Review of Systems Constitutional: reports: Reviewed and negative Eyes: reports: Reviewed and negative Ears: reports: Reviewed and negative Nose: reports: Reviewed and negative Throat: reports: Reviewed and negative Cardiac: reports: Pedal edema (unchanged from baseline). denies: Calf pain Respiratory: reports: Dyspnea. denies: Cough, Hemoptysis, Wheezing GI: reports: Abdominal Pain. denies: Abdominal Swelling, Nausea, Vomiting, Constipation, Diarrhea, Hematemesis : denies: Dysuria, Frequency Skin: denies: Rash, Lesions Musculoskeletal: reports: Back pain. 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 : None HEENT: None Psych: Depression, Anxiety, Other Musculoskeletal: Osteoporosis, Chronic back pain Derm: None - Past Surgical History Past Surgical History: Yes General: Cholecystectomy, Appendectomy, Bowel surgery, Colonoscopy Ortho: 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 MUSEUM: Hysterectomy, Oophrectomy - Present Medications Home Medications: Ambulatory Orders Medication Instructions Recorded Confirmed buprenorphine HCL [Buprenorphine 24 mg SL DAILY 05/07/17 03/12/20 HCl] Alendronate Sodium 70 mg PO Q7D 03/12/20 03/12/20 Bupropion HCl [Bupropion Xl] 300 mg PO DAILY 03/12/20 03/12/20 Cyclobenzaprine HCl 10 mg PO TID PRN 03/12/20 03/12/20 Ondansetron [Ondansetron Odt] 4 mg PO DAILY PRN 03/12/20 03/12/20 Trazodone HCl 50 mg PO QPM PRN 03/12/20 03/12/20 Amox/Clav 875/125 [Augmentin 1 tab PO BIDWM #5 tablet 03/16/20 875/125] Nicotine 14 mg Patch [Nicoderm] 1 patch TOP DAILY #14 patch 03/16/20 buPROPion [Wellbutrin Xl] 150 mg PO DAILY #3 tablet 03/16/20 - Allergies Allergies/Adverse Reactions: Allergies Allergy/AdvReac Type Severity Reaction Status Date / Time aspirin AdvReac Nausea Verified 08/03/20 15:59 NSAIDS (Non-Steroidal AdvReac Nausea Verified 08/03/20 15:59 Anti-Inflamma - Social History Does the pt smoke?: No Smoking Status: Former smoker Does the pt drink ETOH?: Yes Does the pt have substance abuse?: Yes - Immunizations Immunizations are current?: Yes Immunizations: TDAP >10years/unknown, Other immun current - POLST Patient has POLST: No POLST Status: Full Code PD ED PE EXPANDED - General General: Alert, No acute distress, Well developed/nourished - HEENT HEENT: Atraumatic, PERRL - Eyes Eyes: PERRL - Neck Neck: Supple w/out meningeal sx. No: Adenopathy - Cardiac Cardiac: Regular Rate, Regular Rhythm, Radial strong equal, Pedal strong equal, Cap refill < 2 sec - Respiratory Respiratory: Clear to ausultation prudence, Other (full pulmonary excursion). No: Distress, Labored - Abdomen Abdomen: Normal Bowel sounds, Tender to palpation (right sided abdomen). No: Rebound, Guarding - Back Back: Normal exam, Soft tissue tenderness, Other (mild right paraspinous tenderness to palpation). No: Vertebral tenderness - Extremities Extremities: Pedal edema bilateral, Other (able to raise both legs bilaterally) - Neuro Neuro: Alert and Oriented X 3, CNII-XII intact, Normal speech - GCS Eye Opening: Spontaneous Motor: Obeys Commands Verbal: Oriented Total: 15 Results - Vitals Vitals: Vital Signs - 24 hr 08/03/20 15:52 Temperature 36.3 C L Heart Rate 88 Respiratory 20 Rate Blood Pressure 115/64 O2 Saturation 98 Oxygen O2 Source [With Activity] Nasal cannula O2 Source [Without Activity] Nasal cannula O2 Source Room air - Labs Labs: Laboratory Tests 08/03/20 08/03/20 16:32 16:32 WBC 9.1 RBC 2.95 L Hgb 9.2 L Hct 28.5 L MCV 96.6 MCH 31.2 H MCHC 32.3 RDW 14.3 Plt Count 299 MPV 7.9 Neut # (Auto) 7.5 H Lymph # (Auto) 0.8 L [place] # (Auto) 0.6 Eos # (Auto) 0.1 Baso # (Auto) 0.1 Absolute Nucleated RBC 0.00 Nucleated RBC % 0.0 Sodium 135 Potassium 3.4 L Chloride 103 Carbon Dioxide 23 Anion Gap 9.0 BUN 12 Creatinine 0.6 Estimated GFR (MDRD) 101 Glucose 124 H Calcium 8.5 Total Bilirubin 0.4 AST 19 ALT 19 Alkaline Phosphatase 99 Total Protein 5.6 L Albumin 3.0 L Globulin 2.6 Albumin/Globulin Ratio 1.2 Lipase 16 L - Rads (name of study) CT chest Radiology: Final report received CT abd Radiology: Final report received (Mild right-sided pneumothorax. No associated rib fracture detected) PD MEDICAL DECISION MAKING - ED course Complexity details: reviewed old records, reviewed results, re-evaluated patient, considered differential, d/w patient ED course: 65-year-old female presents to the emergency department with right lateral chest wall pain and right-sided abdominal pain after a fall yesterday evening at home. she denies any LOC but does have a hx of increased frequency of falls. she is also noted to be taking opiates in large does. She recently underwent spinal fusion at [facility]. -Non contrast CT of the chest shows a small 10 to 15% right-sided pneumothorax without any associated rib fractures. Wewill admit this lady to observation status under Dr. Abdalla of surgical services for further observation and repeat of imaging in the a.m. These finding have been discussed with the patient. I have also initiated a SW consult secondary to increased frequency of falls and nursing concern of safety at home related to the falls Departure - Departure Disposition: ED Place in Observation Clinical Impression: Pneumothorax, right Discharge Date/Time: 08/03/20 18:31
[2020-08-03 16:40] LABS: BASOPHILS # (AUTO) 0.1 10^3/uL (0.0-0.1); BASOPHILS % (AUTO) 0.6 %; EOSINOPHILS # (AUTO) 0.1 10^3/uL (0.0-0.7); EOSINOPHILS % (AUTO) 1.5 %; HGB - HEMOGLOBIN 9.2 g/dL (12.0-16.0); LYMPHOCYTES # (AUTO) 0.8 10^3/uL (1.5-3.5); LYMPHOCYTES % (AUTO) 8.7 %; MEAN CORPUSCULAR HEMOGLOBIN 31.2 pg (27.0-31.0); MEAN CORPUSCULAR HGB CONC 32.3 g/dL (32.0-36.0); MEAN CORPUSCULAR VOLUME 96.6 fL (81.0-99.0); MEAN PLATELET VOLUME 7.9 fL (7.9-10.8); MONOCYTES # (AUTO) 0.6 10^3/uL (0.0-1.0); MONOCYTES % (AUTO) 6.4 %; NEUTROPHILS # (AUTO) 7.5 10^3/uL (1.5-6.6); NEUTROPHILS % (AUTO) 82.4 %; PLT - PLATELET COUNT 299 10^3/uL (130-450); RED BLOOD COUNT 2.95 10^6/uL (4.20-5.40); RED CELL DISTRIBUTION WIDTH 14.3 % (12.0-15.0); WHITE BLOOD COUNT 9.1 x10^3/uL (4.8-10.8)
--- NOTE | 2020-08-03 17:17 | CT Report ---
PROCEDURE: CHEST WO INDICATIONS: fall; right sided rib pain; r/o fx TECHNIQUE: Noncontrast 5 mm thick sections acquired from the pulmonary apices to the posterior costophrenic angl es. 7 mm thick coronal and sagittal MIP reformats were then acquired. For radiation dose reduction, the following was used: automated exposure control, adjustment of mA and/or kV according to patient size. COMPARISON: Correlation is made with the prior cervical spine and thoracic spine CT examinations, as well as the abdomen and pelvis CT dated 08/03/2020. FINDINGS: Image quality: Excellent. Lungs and pleura: There is a small right-sided pneumothorax (10-15%). This can be seen within the fi eld-of-view of the prior thoracic spine CT dated 08/02/2020. Erythematous changes and subpleural bleb formation can be seen. Dependent atelectasis is seen. No acute air space opacities. Central and do pheral airways are patent and normal in caliber. Mediastinum: Heart size is normal. No pericardial effusion. No mediastinal adenopathy by size crit eria. Thoracic aorta and central pulmonary arteries are normal in size. Esophagus is normal in naresh lynsey. No hiatal hernia. Bones and chest wall: Fixation hardware is seen throughout the thoracic spine, with associated strea k artifact. At the T8 level, the screws protrude slightly into the T7-T8 disc level. There is a olu te T11 anterior wedge deformity seen. No acute fractures are seen. No suspicious bony lesions. No a xillary or supraclavicular adenopathy by size criteria. The thyroid is normal in size. Abdomen: Visualized upper abdominal solid organs and bowel loops appear normal in the absence of con trast. IMPRESSION: There is a small right-sided pneumothorax. An associated right-sided rib fracture is not seen. Extensive thoracic spinal fixation hardware, as described above. Note: Critical finding of pneumothorax discussed by telephone Treva Castro at 4:14 PM [place] time on 08/03/2020. Reviewed by: Lucas Davies MD on 08/03/2020 4:16 PM AKDT Approved by: Lucas Davies MD on 08/03/2020 4:16 PM AKDT Station ID: [id number]
--- NOTE | 2020-08-03 17:21 | CT Report ---
PROCEDURE: Abdomen/Pelvis WO INDICATIONS: right sided abdomianl pain after fall TECHNIQUE: Noncontrast 5 mm thick sections acquired from the diaphragms to the symphysis. 5 mm coronal and sagi ttal reformats were then performed. For radiation dose reduction, the following was used: automated exposure control, adjustment of mA and/or kV according to patient size. COMPARISON: Correlation is made with the accompanying chest CT, 08/03/2020 FINDINGS: Image quality: Excellent. ABDOMEN: Lung bases: A small right-sided pneumothorax is seen. Heart size is normal. Solid organs: Liver and spleen are normal in size. Gallbladder has been removed. Pancreas is elsy l in contours. No adrenal nodules. Kidneys are normal in size, without hydronephrosis or nephrolithiasis. Prominent simple appearing bi lateral renal cysts are seen. Peritoneum and bowel: Unenhanced bowel loops demonstrate normal wall thickness and caliber. No free fluid or air. A moderate amount of stool is seen within the colon. Nodes and vessels: No retroperitoneal or mesenteric adenopathy by size criteria. Aorta and inferior vena cava are normal in caliber. Miscellaneous: No ventral hernias. PELVIS: Genitourinary: Bladder wall thickness is normal. This patient is status post hysterectomy. No adnex al masses can be seen. Miscellaneous: No inguinal hernias or adenopathy. Bones: Extensive spinal fixation hardware is seen. There is a remote T11 anterior wedge deformity. N o acute fractures are detected. No suspicious bony lesions. IMPRESSION: There is a small right-sided pneumothorax. No associated rib fracture is detected. No additional significant posttraumatic abnormality is seen to the limits of this noncontrast CT. There is a moderate amount of stool seen within the colon. Please correlate with clinical constipatio n. Incidental note is made of: Cholecystectomy clips Extensive spinal fixation hardware Remote T11 anterior wedge deformity Simple appearing bilateral renal cysts Hysterectomy Note: Case discussed by telephone with Amparo Castro at 4:14 PM [place] time on 08/03/2020. Reviewed by: Lucas Davies MD on 08/03/2020 4:19 PM AKDT Approved by: Lucas Davies MD on 08/03/2020 4:19 PM AKDT Station ID: [id number]
[2020-08-03] MEDS ORDERED: HYDROmorphone 1 MG/ML CARPUJECT IVP STA (17:26)
[2020-08-03 17:34] LABS: ALBUMIN/GLOBULIN RATIO 1.2 (1.0-2.2); BILIRUBIN,TOTAL 0.4 mg/dL (0.2-1.0); CALCIUM 8.5 mg/dL (8.5-10.3); CREATININE 0.6 mg/dL (0.4-1.0); TOTAL PROTEIN 5.6 g/dL (6.7-8.2)
[2020-08-03] MEDS ORDERED: ACETAMINOPHEN 325 MG TABLET PO PRN (17:36)
[2020-08-03] MEDS ORDERED: IBUPROFEN 600 MG TABLET PO PRN (17:36)
--- NOTE | 2020-08-03 18:01 | XRAY Report ---
PROCEDURE: Chest 1 View X-Ray INDICATIONS: chest pain TECHNIQUE: One view of the chest was acquired. COMPARISON: Correlation is made with chest CT 08/03/2020. FINDINGS: Surgical changes and devices: Extensive spinal fixation hardware is seen. Lungs and pleura: A small right-sided pneumothorax is seen on this study. Mediastinum: Mediastinal contours appear normal. Heart size is normal. Bones and chest wall: No suspicious bony lesions. Overlying soft tissues appear unremarkable. IMPRESSION: Small right-sided pneumothorax again seen. Reviewed by: Lucas Davies MD on 08/03/2020 5:00 PM AMANDA Approved by: Lucas Davies MD on 08/03/2020 5:00 PM AMANDA Station ID: [id number]
[2020-08-03] MEDS: LACTATED RINGERS 1,000 ML IV SCH (19:00)
--- NOTE | 2020-08-04 00:42 | CONSULTATION NOTE ---
Consultation Report: Call to [phone] for IV placement after multiple failed attempts by multiple providers. Pt with history of difficult IV placement. 20 ga 1.88" placed at L Basilic v. attempt x1 after attempt x3 @same location @R UE. Easily aspirates and flushes. Secured. Pt tolerated procedure without complaint or complication. Report new IV to JABARI Yip.
[2020-08-04] MEDS: SODIUM CHLORIDE FLUSH 0.9% 10 ML SYRINGE IVP SCH ×3 (00:53→16:00)
[2020-08-04] MEDS: SODIUM CHLORIDE FLUSH 0.9% 10 ML SYRINGE IVP PRN ×3 (01:06→13:39)
[2020-08-04] MEDS: HYDROmorphone 0.5 MG/0.5 ML SYRINGE IVP PRN ×6 (01:06→21:17)
[2020-08-04] MEDS: PANTOPRAZOLE 40 MG TABLET PO SCH (06:43)
[2020-08-04] MEDS: oxyCODONE 5 MG TABLET PO PRN ×3 (08:19→18:52)
[2020-08-04] MEDS: ENOXAPARIN 40 MG/0.4 ML SYRINGE SUBQ SCH (08:19)
[2020-08-04] MEDS: NICOTINE 14 MG PATCH TOP SCH (08:21)
[2020-08-04] MEDS ORDERED: buPROPion XL 150 MG TABLET PO SCH ×2 (09:00)
--- NOTE | 2020-08-04 09:18 | XRAY Report ---
PROCEDURE: Chest 2 View X-Ray INDICATIONS: Right pneumothorax TECHNIQUE: 2 views of the chest. COMPARISON: Chest radiograph dated 08/03/2020, CT chest 08/03/2020.. FINDINGS: Surgical changes and devices: Extensive spinal fusion hardware is redemonstrated. Lungs and pleura: A right-sided pneumothorax appears slightly smaller when compared to the radiograph s from 08/03/2020. The left lung is clear. Mediastinum: Mediastinal contours are normal. Heart size is normal. Bones and chest wall: No suspicious bony abnormalities. Soft tissues appear unremarkable. IMPRESSION: Mildly decreased size of a small right pleural effusion when compared to the exam from t he day prior. Reviewed by: Curtis Saenz MD on 08/04/2020 9:17 AM PDT Approved by: Curtis Saenz MD on 08/04/2020 9:17 AM PDT Station ID: [id number]
[2020-08-04] MEDS: BUPRENORPHINE HCL SL SCH (10:44)
--- NOTE | 2020-08-04 13:11 | SURGERY HX AND PHYSICAL(T) ---
Surgical History & Physical - Chief Complaint/HPI Chief Complaint: Right chest pain History of Present Illness: Gemma is an unfortunate 65 year old lady who is well known to our ED and Medicine staff. 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 She has chronic pain and has required narcotics for pain control for many years. He most recent operation was a thoracic spinal fusion at [facility] in June of this year. She reports she was standing at the stove boiling water on Saturday night when she felt her legs "give way" and she fell to the floor landing on her right side. She denies any loss of consciousness. She did not hit her head. She says she has had right sided chest pain and pain with deep breaths since that time. She spoke with her sister per telephone yesterday and expressed her discomfort. Her sister encouraged her to come to the ED for evaluation. In the ED, she was found to have normal vitals and O2 saturation. CXR revealed a 10 - 15% right pneumothorax without any obvious rib fractures. She is admitted for pain control, observation, supportive care, and consideration for placement due to numerous falls and fear of returning to her home due to this reason. She reports her pain continues to be poorly controlled. - PMH/PSH/Social Hx Does the pt have a hx of MRSA?: No Neurological History: None, Other Eyes, Ears, Nose, Throat: None Cardiovascular: Hypertension Respiratory: None Skin: None Endocrine/Autoimmune: None Gastrointestinal: GERD, C.difficile, Other BRUSH CUTTER: None Is Patient ?: No Urinary: None Musculoskeletal: Osteoporosis, Chronic back pain Blood Disorders: Anemia Psychiatric: Depression, Anxiety, Other General: Cholecystectomy, Appendectomy, Bowel surgery, Colonoscopy Orthopedic: Spine surgery Smoking Status: Former smoker Does the pt drink ETOH?: Yes Frequency: Daily Number: 5 Amount/day: Drinks/day Does the pt have substance abuse?: Yes - Home Meds and Allergies Home Medications: Alendronate Sodium 70 mg PO Q7D 03/12/20 Bupropion HCl [Bupropion Xl] 300 mg PO DAILY 03/12/20 Cyclobenzaprine HCl 10 mg PO TID PRN 03/12/20 Ondansetron [Ondansetron Odt] 4 mg PO DAILY PRN 03/12/20 Trazodone HCl 50 mg PO QPM PRN 04/25/20 Oxycodone HCl 20 mg PO Q6H 08/04/20 buprenorphine HCL [Buprenorphine HCl] 24 mg SL 08/04/20 Allergies/Adverse Reactions: Allergies Allergy/AdvReac Type Severity Reaction Status Date / Time aspirin AdvReac Nausea Verified 08/03/20 15:59 NSAIDS (Non-Steroidal AdvReac Nausea Verified 08/03/20 15:59 Anti-Inflamma - Review of Systems Constitutional: Fatigue, Malaise, Weakness, Poor appetite, Diaphoresis. No: Fever, Chills HEENT: Headaches. No: Visual changes, Sinus congestion, Post nasal drip Skin: Bruising Respiratory: Shortness of breath. No: Cough Gastrointestinal: No: Nausea, Vomiting, Difficulty swallowing, Abdominal pain Gentinourinary: No: Dysuria, Frequency Neurological: Tingling. No: Dizziness Musculoskeletal: Muscle pain, Back pain, Joint pain or stiffness Hematologic: No: Anemia Psychiatric: Depression, Anxiety Endocrinologic: Cold or heat intolerances - Vital Signs Heart Rate: 84 Blood Pressure: 115/64 Temperature: 36.3 C Respiratory Rate: 18 O2 Saturation: 96 Weight (kg): 54.431 kg Height: 1.52 m - Physical Exam General Appearance: positive: Alert, Mild distress Eyes Bilatera: positive: Normal inspection, PERRL, EOMI ENT: positive: ENT inspection nml, Pharynx nml, No signs of dehydration Neck: positive: Nml inspection, Thyroid nml, No JVD Respiratory: positive: No respiratory distress (Reports pain with a deep breath), Breath sounds nml, Other (Chest is tender to palpation on the right side. No crepitance.) Cardiovascular: positive: Regular rate & rhythm Peripheral Pulses: positive: 0 Abdomen: positive: Non-tender, Nml bowel sounds Back: positive: CVA tenderness (R), CVA tenderness (L) Skin: positive: Color nml Extremities: positive: Non-tender - Patient Review Patient Review: Problems were reviewed with the patient during this visit. Medications were reviewed with the patient during this visit. Allergies were reviewed this patient during this visit. Pertinent Tests Reviewed: All pertitent test for this patient were reviewed. - Assessment & Plan Assessment and Plan: 1. Right sided pneumothorax after fall - slightly improved on today's imaging. Continue IS and supportive care 2. Pain control issues - very difficult problem with patient's history. She reports gabapentine and lyrica are not options as they make her "twitch". Back on all home meds. Falling asleep with each dose of Dilaudid but still reports inadequate pain control. Will add scheduled acetaminophen and scheduled low dose Toradol. 3. Falling - A significant safety concern. Will request consult for consideration of new placement.
[2020-08-04] MEDS: KETOROLAC 15 MG/ML VIAL IVP SCH ×3 (13:39→23:54)
[2020-08-04] MEDS: ACETAMINOPHEN 1,000 MG/100 ML 100 ML IV SCH ×3 (13:46→23:55)
--- NOTE | 2020-08-04 16:08 | PHARMACY PROGRESS NOTE ---
- Best Possible Medication History Admit Date and Time: 08/03/20 1736 Processed by: Pharmacy Medication History completed: Yes Patient Interview: Completed Secondary Source(s): Physician records, Pharmacy records, Insurance records As the person ultimately responsible for medication therapy, providers are able to order a medication from an existing home medication list in [facility] via the "Reconcile Routine" prior to Confirmation of that medication by practice support specialist. Such practice is discouraged except when the physician, in their clinical judgment, deems that a medical need exists for a medication without regard to previous use.
[2020-08-04] MEDS: LACTATED RINGERS 1,000 ML IV SCH (17:57)
[2020-08-05] MEDS: HYDROmorphone 0.5 MG/0.5 ML SYRINGE IVP PRN ×11 (00:05→23:37)
[2020-08-05] MEDS: SODIUM CHLORIDE FLUSH 0.9% 10 ML SYRINGE IVP PRN ×2 (00:06→11:41)
[2020-08-05] MEDS: SODIUM CHLORIDE FLUSH 0.9% 10 ML SYRINGE IVP SCH ×4 (00:06→23:37)
[2020-08-05] MEDS: oxyCODONE 5 MG TABLET PO PRN ×3 (01:06→20:11)
[2020-08-05] MEDS: KETOROLAC 15 MG/ML VIAL IVP SCH ×4 (06:40→23:33)
[2020-08-05] MEDS: PANTOPRAZOLE 40 MG TABLET PO SCH (06:51)
[2020-08-05] MEDS: ACETAMINOPHEN 1,000 MG/100 ML 100 ML IV SCH ×3 (08:29→18:01)
[2020-08-05] MEDS: BUPRENORPHINE HCL SL SCH (08:30)
[2020-08-05] MEDS: ENOXAPARIN 40 MG/0.4 ML SYRINGE SUBQ SCH (09:36)
[2020-08-05] MEDS: NICOTINE 14 MG PATCH TOP SCH (09:36)
--- NOTE | 2020-08-05 11:30 | XRAY Report ---
PROCEDURE: Chest 2 View X-Ray INDICATIONS: Right pneumothorax TECHNIQUE: 2 views of the chest. COMPARISON: Chest radiograph 08/04/2020. FINDINGS: Surgical changes and devices: Extensive spinal fusion hardware is again seen.. Lungs and pleura: Small right apical pneumothorax does not appear significantly changed when compared to the radiographs from the day prior. There is mild atelectasis or consolidation in the right lung base that does not appear significantly changed. Mediastinum: Mediastinal contours are normal. Heart size is normal. Bones and chest wall: No suspicious bony abnormalities. Soft tissues appear unremarkable. IMPRESSION: No significant interval change in size of the previously seen small right pneumothorax. Reviewed by: Curtis Saenz MD on 08/05/2020 11:28 AM PDT Approved by: Curtis Saenz MD on 08/05/2020 11:28 AM PDT Station ID: [id number]
--- NOTE | 2020-08-05 13:37 | PROVIDER PROGRESS NOTE ---
Subjective - Prog Note Date Prog Note Date: 08/05/20 Prog Note Time: 13:35 - Subjective Pt reports feeling: No change Subjective: Gemma reports she continues to be "miserable". Was quite unsteady on her feet with PT. Reports her pain is so severe she has "no apetite". Reiterates a fear of falling at home and adds she does not feel safe. No family members able to help with care currently. Current Medications - Current Medications Current Medications: Active Medications Generic Name Dose Route Start Last Admin Trade Name Freq PRN Reason Stop Dose Admin Acetaminophen 650 mg 08/03/20 17:36 08/04/20 08:18 Tylenol PO 650 mg Q4HR PRN Administration Pain 1 to 4 Cyclobenzaprine HCl 10 mg 08/03/20 17:44 Flexeril PO TID PRN MUSCLE SPASM Enoxaparin Sodium 40 mg 08/04/20 09:00 08/05/20 09:36 Lovenox SUBQ 40 mg DAILY BETTIE Administration Hydromorphone HCl 0.5 mg 08/03/20 17:36 08/05/20 11:41 Dilaudid Inj Syringe IVP 0.5 mg Q2H PRN Administration Pain 8 to 10 Lactated Ringer's 1,000 mls @ 50 mls/hr 08/03/20 18:00 08/05/20 05:08 Lr IV 50 mls/hr .Q20H BETTIE Infusion Acetaminophen 100 mls @ 400 mls/hr 08/04/20 13:00 08/05/20 08:44 Ofirmev IV Infused Q6HR BETTIE Infusion Ibuprofen 600 mg 08/03/20 17:36 Motrin PO Q6HR PRN Pain 1 to 4 Ketorolac Tromethamine 15 mg 08/04/20 13:00 08/05/20 11:41 Toradol Inj (15mg) IVP 08/09/20 12:59 15 mg Q6HR BETTIE Administration Nicotine 1 patch 08/04/20 09:00 08/05/20 09:36 Nicoderm TOP 1 patch DAILY BETTIE Administration Non-Formulary Medication 24 mg 08/04/20 09:00 08/05/20 08:30 Buprenorphine Hcl [Buprenorphine Hcl] SL Not Given DAILY BETTIE Ondansetron HCl 4 mg 08/03/20 17:36 Zofran Inj IVP Q6HR PRN Nausea / Vomiting Oxycodone HCl 5 mg 08/03/20 17:36 08/05/20 10:08 Roxicodone PO 5 mg Q4HR PRN Administration Pain 5 to 7 Pantoprazole Sodium 40 mg 08/04/20 07:00 08/05/20 06:51 Protonix PO 40 mg QDAC BETTIE Administration Sodium Chloride 10 ml 08/03/20 17:36 08/05/20 11:41 Normal Saline Flush 0.9% IVP 20 ml PRN PRN Administration NEEDED PER PROVIDER ORDERS Sodium Chloride 10 ml 08/04/20 01:00 08/05/20 09:36 Normal Saline Flush 0.9% IVP 10 ml 0100,0900,1700 BETTIE Administration Trazodone HCl 50 mg 08/03/20 17:44 Desyrel PO QPM PRN Insomnia Alendronate Sodium 70 mg PO Q7D 03/12/20 Cyclobenzaprine HCl 10 mg PO TID PRN 03/12/20 Ondansetron [Ondansetron Odt] 4 mg PO DAILY PRN 03/12/20 Trazodone HCl 50 mg PO QPM PRN 03/12/20 buprenorphine HCL [Buprenorphine HCl] 24 mg SL DAILY 08/04/20 Objective - Vital Signs/Intake & Output Reviewed Vital Signs: Yes Vital Signs: Vital Signs x48h Temp Pulse Pulse Resp BP BP Pulse Ox 08/05/20 12:16 36.6 C 77 18 143/70 H 99 08/05/20 11:55 78 143/70 H 08/05/20 08:08 36.7 C 79 16 140/75 H 98 Intake & Output: Intake & Output 08/02/20 08/03/20 08/04/20 08/05/20 23:59 23:59 23:59 23:59 Intake Total 350.032 0080.507 1359.167 Output Total 3375 1000 Balance 495.833 -1442.493 359.167 - Objective General Appearance: positive: Moderate distress, Anxious Eyes Bilateral: positive: Normal inspection, PERRL, EOMI Neck: positive: No JVD Respiratory: positive: Other (Splinting with deep breaths. Decreased air movement on the right. Right chest with moderate bruising and significant tenderness to palpation) Cardiovascular: positive: Regular rate & rhythm - Lab Results Fish Bones: 08/03/20 16:32 08/03/20 16:32 - Diagnostic Imaging Diagnostic Imaging Results: positive: Final report reviewed Diagnostic Imaging Comments: No significant change in the size of the right sided pneumothorax. ABX Reporting Has patient been on IV antibiotics over the past 48 hours?: No Assessment/Plan - Problem List (1) Pneumothorax, right Impression: Not safe for discharge to home. She would benefit from a stay with [facility] to help with gate rehab as well as all activities of daily living. She is not able to function safely at this point and is therefore not eligible for discharge.
[2020-08-05] MEDS: LACTATED RINGERS 1,000 ML IV SCH (14:02)
[2020-08-06] MEDS: ACETAMINOPHEN 1,000 MG/100 ML 100 ML IV SCH ×4 (00:40→18:07)
[2020-08-06] MEDS: HYDROmorphone 0.5 MG/0.5 ML SYRINGE IVP PRN ×10 (04:09→22:24)
[2020-08-06] MEDS: PANTOPRAZOLE 40 MG TABLET PO SCH (06:17)
[2020-08-06] MEDS: KETOROLAC 15 MG/ML VIAL IVP SCH ×2 (06:17→12:32)
[2020-08-06] MEDS: ENOXAPARIN 40 MG/0.4 ML SYRINGE SUBQ SCH (08:22)
[2020-08-06] MEDS: NICOTINE 14 MG PATCH TOP SCH (08:23)
[2020-08-06] MEDS: LACTATED RINGERS 1,000 ML IV SCH (08:23)
[2020-08-06] MEDS: BUPRENORPHINE HCL SL SCH (08:24)
[2020-08-06] MEDS: SODIUM CHLORIDE FLUSH 0.9% 10 ML SYRINGE IVP SCH ×2 (08:25→16:22)
[2020-08-06] MEDS: ONDANSETRON 4 MG/2 ML VIAL IVP PRN (14:30)
[2020-08-06] MEDS: LIDOCAINE PATCH 5% TOP PRN (16:21)
[2020-08-06] MEDS: CYCLOBENZAPRINE 10 MG TABLET PO PRN (16:21)
--- NOTE | 2020-08-06 19:11 | PROVIDER PROGRESS NOTE ---
Subjective - Prog Note Date Prog Note Date: 08/06/20 Prog Note Time: 13:10 - Subjective Pt reports feeling: No change Subjective: Gemma reports no real change. Still complaining her pain is not well controlled. Has been up with assistance with PT. Nursing staff reports she has been asking for Dilaudid with regularity. COVID test done this AM in preparation for placement. Tolerating po. No nausea. Current Medications - Current Medications Current Medications: Active Medications Generic Name Dose Route Start Last Admin Trade Name Freq PRN Reason Stop Dose Admin Acetaminophen 650 mg 08/03/20 17:36 08/04/20 08:18 Tylenol PO 650 mg Q4HR PRN Administration Pain 1 to 4 Cyclobenzaprine HCl 10 mg 08/03/20 17:44 08/06/20 16:21 Flexeril PO 10 mg TID PRN Administration MUSCLE SPASM Enoxaparin Sodium 40 mg 08/04/20 09:00 08/06/20 08:22 Lovenox SUBQ 40 mg DAILY BETTIE Administration Hydromorphone HCl 0.5 mg 08/03/20 17:36 08/06/20 18:08 Dilaudid Inj Syringe IVP 0.5 mg Q2H PRN Administration Pain 8 to 10 Lactated Ringer's 1,000 mls @ 50 mls/hr 08/03/20 18:00 08/06/20 08:23 Lr IV 50 mls/hr .Q20H BETTIE Administration Acetaminophen 100 mls @ 400 mls/hr 08/04/20 13:00 08/06/20 18:29 Ofirmev IV Infused Q6HR BETTIE Infusion Ibuprofen 600 mg 08/03/20 17:36 Motrin PO Q6HR PRN Pain 1 to 4 Lidocaine 1 patch 08/06/20 15:11 08/06/20 16:21 Lidoderm Patch TOP 1 patch DAILY PRN Administration PAIN Nicotine 1 patch 08/04/20 09:00 08/06/20 08:23 Nicoderm TOP 1 patch DAILY BETTIE Administration Non-Formulary Medication 24 mg 08/04/20 09:00 08/06/20 08:24 Buprenorphine Hcl [Buprenorphine Hcl] SL Not Given DAILY BETTIE Ondansetron HCl 4 mg 08/03/20 17:36 08/06/20 14:30 Zofran Inj IVP 4 mg Q6HR PRN Administration Nausea / Vomiting Oxycodone HCl 5 mg 08/03/20 17:36 08/05/20 20:11 Roxicodone PO 5 mg Q4HR PRN Administration Pain 5 to 7 Pantoprazole Sodium 40 mg 08/04/20 07:00 08/06/20 06:17 Protonix PO 40 mg QDAC BETTIE Administration Sodium Chloride 10 ml 08/03/20 17:36 08/05/20 11:41 Normal Saline Flush 0.9% IVP 20 ml PRN PRN Administration NEEDED PER PROVIDER ORDERS Sodium Chloride 10 ml 08/04/20 01:00 08/06/20 16:22 Normal Saline Flush 0.9% IVP 10 ml 0100,0900,1700 BETTIE Administration Trazodone HCl 50 mg 08/03/20 17:44 Desyrel PO QPM PRN Insomnia Alendronate Sodium 70 mg PO Q7D 03/12/20 Cyclobenzaprine HCl 10 mg PO TID PRN 03/12/20 Ondansetron [Ondansetron Odt] 4 mg PO DAILY PRN 03/12/20 Trazodone HCl 50 mg PO QPM PRN 03/12/20 buprenorphine HCL [Buprenorphine HCl] 24 mg SL DAILY 08/04/20 Objective - Vital Signs/Intake & Output Vital Signs: Vital Signs x48h Temp Pulse Resp BP Pulse Ox 08/06/20 15:46 36.7 C 83 14 159/77 H 95 Intake & Output: Intake & Output 08/03/20 08/04/20 08/05/20 08/06/20 23:59 23:59 23:59 23:59 Intake Total 897.847 0541.507 2420.000 2175.5 Output Total 3375 2300 1475 Balance 495.833 -1442.493 120.000 700.5 - Objective General Appearance: positive: No acute distress, Alert Eyes Bilateral: positive: Normal inspection ENT: positive: ENT inspection nml, Pharynx nml Respiratory: positive: No respiratory distress, Other (Right chest is tender to palpation) Cardiovascular: positive: Regular rate & rhythm Abdomen: positive: Non-tender, Nml bowel sounds Back: positive: CVA tenderness (R). negative: CVA tenderness (L) - Lab Results Fish Bones: 08/03/20 16:32 09/16/20 16:32 Assessment/Plan - Problem List (1) Pneumothorax, right Impression: Objectively improving to some degree with will need placement with shelter for improvement of strength and stability. Will try lidocaine patches for the right chest wall pain.
[2020-08-07] MEDS: SODIUM CHLORIDE FLUSH 0.9% 10 ML SYRINGE IVP SCH ×3 (00:42→17:07)
[2020-08-07] MEDS: ACETAMINOPHEN 1,000 MG/100 ML 100 ML IV SCH ×4 (00:42→17:42)
[2020-08-07] MEDS: HYDROmorphone 0.5 MG/0.5 ML SYRINGE IVP PRN ×10 (00:42→21:16)
[2020-08-07] MEDS: LACTATED RINGERS 1,000 ML IV SCH ×2 (02:56→22:11)
[2020-08-07] MEDS: PANTOPRAZOLE 40 MG TABLET PO SCH (06:22)
[2020-08-07] MEDS: CYCLOBENZAPRINE 10 MG TABLET PO PRN ×2 (08:39→17:55)
[2020-08-07] MEDS: oxyCODONE 5 MG TABLET PO PRN ×4 (08:39→22:11)
[2020-08-07] MEDS: NICOTINE 14 MG PATCH TOP SCH (08:40)
[2020-08-07] MEDS: BUPRENORPHINE HCL SL SCH (08:44)
[2020-08-07] MEDS: ENOXAPARIN 40 MG/0.4 ML SYRINGE SUBQ SCH (08:44)
[2020-08-07] MEDS: ONDANSETRON 4 MG/2 ML VIAL IVP PRN (16:30)
[2020-08-07] MEDS: LIDOCAINE PATCH 5% TOP PRN (17:55)
[2020-08-07] MEDS ORDERED: ACETAMINOPHEN 1,000 MG/100 ML 100 ML IV STA (19:01)
--- NOTE | 2020-08-07 19:06 | PROVIDER PROGRESS NOTE ---
Subjective - Prog Note Date Prog Note Date: 08/07/20 Prog Note Time: 15:00 - Subjective Pt reports feeling: No change Subjective: Patient reports she is not better and not worse but is trying harder. Sats are good on room air. Continues to refuse tylenol and advil as she says they are not helpful but requests Dilaudid each time it is available per schedule. Also back on her home meds. Her sister is at the bedside today Current Medications - Current Medications Current Medications: Active Medications Generic Name Dose Route Start Last Admin Trade Name Freq PRN Reason Stop Dose Admin Acetaminophen 650 mg 08/03/20 17:36 08/04/20 08:18 Tylenol PO 650 mg Q4HR PRN Administration Pain 1 to 4 Cyclobenzaprine HCl 10 mg 08/03/20 17:44 08/07/20 17:55 Flexeril PO 10 mg TID PRN Administration MUSCLE SPASM Enoxaparin Sodium 40 mg 08/04/20 09:00 08/07/20 08:44 Lovenox SUBQ 40 mg DAILY BETTIE Administration Hydromorphone HCl 0.5 mg 08/03/20 17:36 08/07/20 16:18 Dilaudid Inj Syringe IVP 0.5 mg Q2H PRN Administration Pain 8 to 10 Lactated Ringer's 1,000 mls @ 50 mls/hr 08/03/20 18:00 08/07/20 02:56 Lr IV 50 mls/hr .Q20H BETTIE Administration Acetaminophen 100 mls @ 400 mls/hr 08/04/20 13:00 08/07/20 17:59 Ofirmev IV Infused Q6HR BETTIE Infusion Acetaminophen 100 mls @ 400 mls/hr 08/07/20 19:01 Ofirmev IV 08/07/20 19:15 Q6HR STA Ibuprofen 600 mg 08/03/20 17:36 Motrin PO Q6HR PRN Pain 1 to 4 Lidocaine 1 patch 08/06/20 15:11 08/07/20 17:55 Lidoderm Patch TOP 1 patch DAILY PRN Administration PAIN Nicotine 1 patch 08/04/20 09:00 08/07/20 08:40 Nicoderm TOP 1 patch DAILY BETTIE Administration Non-Formulary Medication 24 mg 08/04/20 09:00 08/07/20 08:44 Buprenorphine Hcl [Buprenorphine Hcl] SL Not Given DAILY BETTIE Ondansetron HCl 4 mg 08/03/20 17:36 08/07/20 16:30 Zofran Inj IVP 4 mg Q6HR PRN Administration Nausea / Vomiting Oxycodone HCl 5 mg 08/03/20 17:36 08/07/20 16:50 Roxicodone PO 5 mg Q4HR PRN Administration Pain 5 to 7 Pantoprazole Sodium 40 mg 08/04/20 07:00 08/07/20 06:22 Protonix PO 40 mg QDAC BETTIE Administration Sodium Chloride 10 ml 08/03/20 17:36 08/05/20 11:41 Normal Saline Flush 0.9% IVP 20 ml PRN PRN Administration NEEDED PER PROVIDER ORDERS Sodium Chloride 10 ml 08/04/20 01:00 08/07/20 17:07 Normal Saline Flush 0.9% IVP Not Given 0100,0900,1700 BETTIE Trazodone HCl 50 mg 08/03/20 17:44 Desyrel PO QPM PRN Insomnia Alendronate Sodium 70 mg PO Q7D 03/12/20 Cyclobenzaprine HCl 10 mg PO TID PRN 03/12/20 Ondansetron [Ondansetron Odt] 4 mg PO DAILY PRN 03/12/20 Trazodone HCl 50 mg PO QPM PRN 03/12/20 buprenorphine HCL [Buprenorphine HCl] 24 mg SL DAILY 08/04/20 Objective - Vital Signs/Intake & Output Reviewed Vital Signs: Yes Vital Signs: Vital Signs x48h Temp Pulse Resp BP Pulse Ox 08/07/20 16:00 36.3 C L 91 16 127/71 96 Intake & Output: Intake & Output 08/04/20 08/05/20 08/06/20 08/07/20 23:59 23:59 23:59 23:59 Intake Total 0765.142 8761.000 2475.5 2500 Output Total 3375 2300 2375 1100 Balance -1442.493 120.000 100.5 1400 - Objective General Appearance: positive: No acute distress, Alert Eyes Bilateral: positive: Normal inspection, PERRL ENT: positive: ENT inspection nml, Pharynx nml Neck: positive: Nml inspection, Thyroid nml, No JVD Respiratory: positive: No respiratory distress, Other (Breath sounds remain decreased at the right base. She is moving air.) Cardiovascular: positive: Regular rate & rhythm Abdomen: positive: Non-tender, Nml bowel sounds Back: positive: CVA tenderness (R) Skin: positive: Color nml - Lab Results Fish Bones: 08/03/20 16:32 08/03/20 16:32 Other Labs: Lab Results x24hrs 08/06/20 Range/Units 10:21 Coronavirus (PCR) NEGATIVE ABX Reporting Has patient been on IV antibiotics over the past 48 hours?: No Assessment/Plan - Problem List (1) Pneumothorax, right Impression: Awaiting placement. COVID test is negative. She may benefit from diclofenac gel or patch for the right chest wall pain but it is not available on our formulary. Will change tylenol to scheduled IV. Eating a little better with sister's presence. Denies any nausea. Pain and generalized deconditioning and gait instability with a history of falls remain our major challenges. Will recheck labs and CXR in the AM.
[2020-08-08] MEDS: HYDROmorphone 0.5 MG/0.5 ML SYRINGE IVP PRN ×9 (00:15→22:05)
[2020-08-08] MEDS: SODIUM CHLORIDE FLUSH 0.9% 10 ML SYRINGE IVP SCH ×3 (00:16→22:10)
[2020-08-08] MEDS: ACETAMINOPHEN 1,000 MG/100 ML 100 ML IV SCH ×2 (00:19→06:36)
[2020-08-08] MEDS: oxyCODONE 5 MG TABLET PO PRN ×5 (05:05→22:46)
[2020-08-08 05:31] LABS: BASOPHILS # (AUTO) 0.1 10^3/uL (0.0-0.1); BASOPHILS % (AUTO) 0.9 %; EOSINOPHILS # (AUTO) 0.4 10^3/uL (0.0-0.7); EOSINOPHILS % (AUTO) 5.5 %; HGB - HEMOGLOBIN 11.4 g/dL (12.0-16.0); LYMPHOCYTES # (AUTO) 1.9 10^3/uL (1.5-3.5); LYMPHOCYTES % (AUTO) 25.7 %; MEAN CORPUSCULAR HEMOGLOBIN 30.2 pg (27.0-31.0); MEAN CORPUSCULAR HGB CONC 32.6 g/dL (32.0-36.0); MEAN CORPUSCULAR VOLUME 92.8 fL (81.0-99.0); MEAN PLATELET VOLUME 7.7 fL (7.9-10.8); MONOCYTES # (AUTO) 0.6 10^3/uL (0.0-1.0); MONOCYTES % (AUTO) 8.2 %; NEUTROPHILS # (AUTO) 4.4 10^3/uL (1.5-6.6); NEUTROPHILS % (AUTO) 59.4 %; PLT - PLATELET COUNT 355 10^3/uL (130-450); RED BLOOD COUNT 3.77 10^6/uL (4.20-5.40); RED CELL DISTRIBUTION WIDTH 13.5 % (12.0-15.0); WHITE BLOOD COUNT 7.4 x10^3/uL (4.8-10.8)
[2020-08-08 05:39] LABS: CALCIUM 9.1 mg/dL (8.5-10.3); CREATININE 0.7 mg/dL (0.4-1.0)
[2020-08-08] MEDS: PANTOPRAZOLE 40 MG TABLET PO SCH (06:36)
[2020-08-08] MEDS: ONDANSETRON 4 MG/2 ML VIAL IVP PRN ×2 (07:46→14:31)
--- NOTE | 2020-08-08 08:56 | XRAY Report ---
PROCEDURE: Chest 2 View X-Ray INDICATIONS: Right pneumothorax TECHNIQUE: 2 view(s) of the chest. COMPARISON: 08/05/2020. FINDINGS: Surgical changes and devices: Extensive local lumbar spine fixation hardware. Cholecystectomy clips. Lungs and pleura: Right-sided pneumothorax decreased in size with trace apical pneumothorax identifie d in the current study. Lungs are clear. Mediastinum: Mediastinal contours are normal. Heart size is normal. Bones and chest wall: No suspicious bony abnormalities. Soft tissues appear unremarkable. IMPRESSION: Trace apical right pneumothorax decreased in size compared to 08/05/2020. Reviewed by: Blanca Ely MD, PhD on 08/08/2020 8:55 AM PDT Approved by: Blanca Ely MD, PhD on 08/08/2020 8:55 AM PDT Station ID: [id number]
[2020-08-08] MEDS: BUPRENORPHINE HCL SL SCH (09:22)
[2020-08-08] MEDS: ENOXAPARIN 40 MG/0.4 ML SYRINGE SUBQ SCH (09:23)
[2020-08-08] MEDS: NICOTINE 14 MG PATCH TOP SCH (09:23)
[2020-08-08] MEDS: ACETAMINOPHEN 500 MG TABLET PO SCH ×2 (14:31→22:04)
[2020-08-08] MEDS: CYCLOBENZAPRINE 10 MG TABLET PO PRN (16:50)
--- NOTE | 2020-08-08 16:50 | PROVIDER PROGRESS NOTE ---
Subjective - Prog Note Date Prog Note Date: 08/08/20 Prog Note Time: 16:48 - Subjective Subjective: Gemma continues to complain of pain and reports the discomfort is "messing with my mind". Asking for an increased dose of dilaudid and requesting valium. Records of prior admissions reviewed. There is a pattern of difficulty with pain control. Current Medications - Current Medications Current Medications: Active Medications Generic Name Dose Route Start Last Admin Trade Name Freq PRN Reason Stop Dose Admin Acetaminophen 1,000 mg 08/08/20 13:00 08/08/20 14:31 Tylenol PO 1,000 mg TID BETTIE Administration Cyclobenzaprine HCl 10 mg 08/03/20 17:44 08/07/20 17:55 Flexeril PO 10 mg TID PRN Administration MUSCLE SPASM Enoxaparin Sodium 40 mg 08/04/20 09:00 08/08/20 09:23 Lovenox SUBQ 40 mg DAILY BETTIE Administration Hydromorphone HCl 0.5 mg 08/03/20 17:36 08/08/20 14:31 Dilaudid Inj Syringe IVP 0.5 mg Q2H PRN Administration Pain 8 to 10 Lactated Ringer's 1,000 mls @ 50 mls/hr 08/03/20 18:00 08/07/20 22:11 Lr IV 50 mls/hr .Q20H BETTIE Administration Ibuprofen 600 mg 08/03/20 17:36 Motrin PO Q6HR PRN Pain 1 to 4 Lidocaine 1 patch 08/06/20 15:11 08/07/20 17:55 Lidoderm Patch TOP 1 patch DAILY PRN Administration PAIN Nicotine 1 patch 08/04/20 09:00 08/08/20 09:23 Nicoderm TOP 1 patch DAILY BETTIE Administration Non-Formulary Medication 24 mg 08/04/20 09:00 08/08/20 09:22 Buprenorphine Hcl [Buprenorphine Hcl] SL Not Given DAILY BETTIE Olanzapine 2.5 mg 08/08/20 16:46 Zyprexa Odt TL DAILY BETTIE Ondansetron HCl 4 mg 08/03/20 17:36 08/08/20 14:31 Zofran Inj IVP 4 mg Q6HR PRN Administration Nausea / Vomiting Oxycodone HCl 5 mg 08/03/20 17:36 08/08/20 13:43 Roxicodone PO 5 mg Q4HR PRN Administration Pain 5 to 7 Pantoprazole Sodium 40 mg 08/04/20 07:00 08/08/20 06:36 Protonix PO 40 mg QDAC BETTIE Administration Sodium Chloride 10 ml 08/03/20 17:36 08/05/20 11:41 Normal Saline Flush 0.9% IVP 20 ml PRN PRN Administration NEEDED PER PROVIDER ORDERS Sodium Chloride 10 ml 08/04/20 01:00 08/08/20 09:24 Normal Saline Flush 0.9% IVP Not Given 0100,0900,1700 BETTIE Trazodone HCl 50 mg 08/03/20 17:44 Desyrel PO QPM PRN Insomnia Alendronate Sodium 70 mg PO Q7D 03/12/20 Cyclobenzaprine HCl 10 mg PO TID PRN 03/12/20 Ondansetron [Ondansetron Odt] 4 mg PO DAILY PRN 03/12/20 Trazodone HCl 50 mg PO QPM PRN 03/12/20 buprenorphine HCL [Buprenorphine HCl] 24 mg SL DAILY 08/04/20 Objective - Vital Signs/Intake & Output Reviewed Vital Signs: Yes Vital Signs: Vital Signs x48h Temp Pulse Resp BP Pulse Ox 08/08/20 16:00 35.8 C L 79 18 143/76 H 99 Intake & Output: Intake & Output 08/05/20 08/06/20 08/07/20 08/08/20 23:59 23:59 23:59 23:59 Intake Total 2420.000 2475.5 3580.5 440 Output Total 2300 2375 1350 900 Balance 120.000 100.5 2230.5 -460 - Objective General Appearance: positive: No acute distress, Alert Eyes Bilateral: positive: Normal inspection, PERRL, EOMI Respiratory: positive: No respiratory distress, Breath sounds nml Cardiovascular: positive: Regular rate & rhythm, No murmur Abdomen: positive: Non-tender, Nml bowel sounds Extremities: positive: Non-tender Neurologic/Psychiatric: positive: Oriented x3 - Lab Results Fish Bones: 08/08/20 05:21 08/08/20 05:21 Other Labs: Lab Results x24hrs 08/08/20 08/08/20 Range/Units 05:21 05:21 WBC 7.4 (4.8-10.8) x10^3/uL RBC 3.77 L (4.20-5.40) 10^6/uL Hgb 11.4 L (12.0-16.0) g/dL Hct 35.0 L (37.0-47.0) % MCV 92.8 (81.0-99.0) fL MCH 30.2 (27.0-31.0) pg MCHC 32.6 (32.0-36.0) g/dL RDW 13.5 (12.0-15.0) % Plt Count 355 (130-450) 10^3/uL MPV 7.7 L (7.9-10.8) fL Neut # (Auto) 4.4 (1.5-6.6) 10^3/uL Lymph # (Auto) 1.9 (1.5-3.5) 10^3/uL Garvin # (Auto) 0.6 (0.0-1.0) 10^3/uL Eos # (Auto) 0.4 (0.0-0.7) 10^3/uL Baso # (Auto) 0.1 (0.0-0.1) 10^3/uL Absolute Nucleated RBC 0.00 x10^3/uL Nucleated RBC % 0.0 /100WBC Sodium 134 L (135-145) mmol/L Potassium 4.0 (3.5-5.0) mmol/L Chloride 104 (101-111) mmol/L Carbon Dioxide 23 (21-32) mmol/L Anion Gap 7.0 (6-13) BUN 16 (6-20) mg/dL Creatinine 0.7 (0.4-1.0) mg/dL Estimated GFR (MDRD) 84 L (>89) Glucose 127 H (70-100) mg/dL Calcium 9.1 (8.5-10.3) mg/dL - Diagnostic Imaging Diagnostic Imaging Results: positive: Final report reviewed Diagnostic Imaging Comments: Near total resolution of the right sided pneumothorax Assessment/Plan - Problem List (1) Pneumothorax, right Impression: Placement is a challenge and she is not safe to discharge to home. Will try adding Zyprexa 2.5 mg qd. Continue IS. Labs and chest xray both reassuring today.
[2020-08-08] MEDS: OLANZapine ODT 5 MG TABLET TL SCH (17:08)
[2020-08-08] MEDS: LIDOCAINE PATCH 5% TOP PRN (18:31)
[2020-08-08] MEDS: traZODone 50 MG TABLET PO PRN (22:04)
[2020-08-08] MEDS: LACTATED RINGERS 1,000 ML IV SCH (22:42)
[2020-08-09] MEDS: SODIUM CHLORIDE FLUSH 0.9% 10 ML SYRINGE IVP SCH ×4 (00:04→23:40)
[2020-08-09] MEDS: HYDROmorphone 0.5 MG/0.5 ML SYRINGE IVP PRN ×11 (00:08→22:56)
[2020-08-09] MEDS: oxyCODONE 5 MG TABLET PO PRN ×4 (03:25→23:34)
[2020-08-09] MEDS: PANTOPRAZOLE 40 MG TABLET PO SCH (05:49)
[2020-08-09] MEDS: ACETAMINOPHEN 500 MG TABLET PO SCH ×3 (05:49→21:06)
[2020-08-09] MEDS: BUPRENORPHINE HCL SL SCH (08:21)
[2020-08-09] MEDS: ENOXAPARIN 40 MG/0.4 ML SYRINGE SUBQ SCH (08:22)
[2020-08-09] MEDS: OLANZapine ODT 5 MG TABLET TL SCH (08:22)
[2020-08-09] MEDS: NICOTINE 14 MG PATCH TOP SCH (08:23)
[2020-08-09] MEDS: CYCLOBENZAPRINE 10 MG TABLET PO PRN (11:54)
--- NOTE | 2020-08-09 16:51 | PROVIDER PROGRESS NOTE ---
Subjective - Prog Note Date Prog Note Date: 08/09/20 Prog Note Time: 16:49 - Subjective Pt reports feeling: No change Subjective: Pain continues to be an issue. Patient reports she is not on a pain contract but has been receiving Oxycodone 20 every 6 hours. I checked notes from Dr. Klein and found that is indeed the case. I was last prescribed on July 27. Additionally, she is taking Cymbalta 20 mg q day prior to this admission and that has not been restarted either. She denies any shortness of breath. No other complaints. Current Medications - Current Medications Current Medications: Active Medications Generic Name Dose Route Start Last Admin Trade Name Freq PRN Reason Stop Dose Admin Acetaminophen 1,000 mg 08/08/20 13:00 08/09/20 14:01 Tylenol PO 1,000 mg TID BETTIE Administration Cyclobenzaprine HCl 10 mg 08/03/20 17:44 08/09/20 11:54 Flexeril PO 10 mg TID PRN Administration MUSCLE SPASM Duloxetine HCl 20 mg 08/10/20 09:00 Cymbalta PO DAILY BETTIE Enoxaparin Sodium 40 mg 08/04/20 09:00 08/09/20 08:22 Lovenox SUBQ 40 mg DAILY BETTIE Administration Hydromorphone HCl 0.5 mg 08/03/20 17:36 08/09/20 16:41 Dilaudid Inj Syringe IVP 0.5 mg Q2H PRN Administration Pain 8 to 10 Lactated Ringer's 1,000 mls @ 50 mls/hr 08/03/20 18:00 08/08/20 23:01 Lr IV 50 mls/hr .Q20H BETTIE Infusion Ibuprofen 600 mg 08/03/20 17:36 Motrin PO Q6HR PRN Pain 1 to 4 Lidocaine 1 patch 08/06/20 15:11 08/08/20 18:31 Lidoderm Patch TOP 1 patch DAILY PRN Administration PAIN Nicotine 1 patch 08/04/20 09:00 08/09/20 08:23 Nicoderm TOP 1 patch DAILY BETTIE Administration Non-Formulary Medication 24 mg 08/04/20 09:00 08/09/20 08:21 Buprenorphine Hcl [Buprenorphine Hcl] SL Not Given DAILY BETTIE Olanzapine 2.5 mg 08/08/20 16:46 08/09/20 08:22 Zyprexa Odt TL 2.5 mg DAILY BETTIE Administration Ondansetron HCl 4 mg 08/03/20 17:36 08/08/20 14:31 Zofran Inj IVP 4 mg Q6HR PRN Administration Nausea / Vomiting Oxycodone HCl 5 mg 08/03/20 17:36 08/09/20 09:05 Roxicodone PO 5 mg Q4HR PRN Administration Pain 5 to 7 Oxycodone HCl 20 mg 08/09/20 16:48 Roxicodone PO Q6HR PRN PAIN Pantoprazole Sodium 40 mg 08/04/20 07:00 08/09/20 05:49 Protonix PO 40 mg QDAC BETTIE Administration Sodium Chloride 10 ml 08/03/20 17:36 08/05/20 11:41 Normal Saline Flush 0.9% IVP 20 ml PRN PRN Administration NEEDED PER PROVIDER ORDERS Sodium Chloride 10 ml 08/04/20 01:00 08/09/20 16:41 Normal Saline Flush 0.9% IVP 10 ml 0100,0900,1700 BETTIE Administration Trazodone HCl 50 mg 08/03/20 17:44 08/08/20 22:04 Desyrel PO 50 mg QPM PRN Administration Insomnia Alendronate Sodium 70 mg PO Q7D 03/12/20 Cyclobenzaprine HCl 10 mg PO TID PRN 03/12/20 Ondansetron [Ondansetron Odt] 4 mg PO DAILY PRN 03/12/20 Trazodone HCl 50 mg PO QPM PRN 03/12/20 buprenorphine HCL [Buprenorphine HCl] 24 mg SL DAILY 08/04/20 Objective - Vital Signs/Intake & Output Vital Signs: Vital Signs x48h Temp Pulse Resp BP Pulse Ox 08/09/20 15:38 36.5 C 97 18 129/63 97 Intake & Output: Intake & Output 08/06/20 08/07/20 08/08/20 08/09/20 23:59 23:59 23:59 23:59 Intake Total 2475.5 3580.5 1955.833 120 Output Total 2375 1350 1500 650 Balance 100.5 2230.5 455.833 -530 - Lab Results Fish Bones: 08/08/20 05:21 08/08/20 05:21 Assessment/Plan - Problem List (1) Pneumothorax, right Impression: Placement continues to be a struggle. I have added cymbalta and Oxycodone to the patient's MAR. Hopefully we will get more satisfactory pain control.
[2020-08-09] MEDS: ONDANSETRON 4 MG/2 ML VIAL IVP PRN (17:51)
[2020-08-09] MEDS: SODIUM CHLORIDE FLUSH 0.9% 10 ML SYRINGE IVP PRN ×3 (17:52→22:57)
[2020-08-09] MEDS: traZODone 50 MG TABLET PO PRN (22:55)
[2020-08-10] MEDS: HYDROmorphone 0.5 MG/0.5 ML SYRINGE IVP PRN ×9 (03:23→21:25)
[2020-08-10] MEDS: oxyCODONE 5 MG TABLET PO PRN ×3 (06:01→18:12)
[2020-08-10] MEDS: ACETAMINOPHEN 500 MG TABLET PO SCH ×3 (06:01→21:24)
[2020-08-10] MEDS: PANTOPRAZOLE 40 MG TABLET PO SCH (06:01)
[2020-08-10] MEDS: BUPRENORPHINE HCL SL SCH (08:49)
[2020-08-10] MEDS: DULoxetine 20 MG CAPSULE PO SCH (08:50)
[2020-08-10] MEDS: OLANZapine ODT 5 MG TABLET TL SCH (08:50)
[2020-08-10] MEDS: NICOTINE 14 MG PATCH TOP SCH (08:50)
[2020-08-10] MEDS: SODIUM CHLORIDE FLUSH 0.9% 10 ML SYRINGE IVP SCH ×2 (08:51→18:21)
[2020-08-10] MEDS: ENOXAPARIN 40 MG/0.4 ML SYRINGE SUBQ SCH (08:51)
[2020-08-10] MEDS: CYCLOBENZAPRINE 10 MG TABLET PO PRN ×2 (09:09→18:23)
[2020-08-10] MEDS: SODIUM CHLORIDE FLUSH 0.9% 10 ML SYRINGE IVP PRN ×3 (10:38→15:00)
[2020-08-10] MEDS: ONDANSETRON 4 MG/2 ML VIAL IVP PRN ×2 (12:47→19:23)
--- NOTE | 2020-08-10 15:39 | PROVIDER PROGRESS NOTE ---
Subjective - Prog Note Date Prog Note Date: 08/10/20 Prog Note Time: 15:36 - Subjective Pt reports feeling: Improved Subjective: Pain is much better today. She reports it was much more manageable on her home dose of Oxycodone and she was able to participate with physical therapy and even to walk some stairs. She is in better spirits and even talking about trying to go home if we could find some help for her there. She denies shortness of breath. Current Medications - Current Medications Current Medications: Medications Summary Acetaminophen (Tylenol) 1,000 mg PO TID COUNTS INCLUDE 234 BEDS AT THE [facility] Last Admin: 08/10/20 15:00 Dose: 1,000 mg Documented by: MARISOL Acetaminophen Assessment Document 08/10/20 15:00 GW (Rec: 08/10/20 15:00 GW [place] [id number]) Pain or Fever Assessment Pain Scale Used 0-10 Pain Intensity (0-10) 8 Cyclobenzaprine HCl (Flexeril) 10 mg PO TID PRN PRN Reason: MUSCLE SPASM Last Admin: 08/10/20 09:09 Dose: 10 mg Documented by: MARISOL Duloxetine HCl (Cymbalta) 20 mg PO DAILY COUNTS INCLUDE 234 BEDS AT THE [facility] Last Admin: 08/10/20 08:50 Dose: 20 mg Documented by: MARISOL Enoxaparin Sodium (Lovenox) 40 mg SUBQ DAILY COUNTS INCLUDE 234 BEDS AT THE [facility] Last Admin: 08/10/20 08:51 Dose: 40 mg Documented by: MARISOL Subcutaneous Injection Site Document 08/10/20 08:51 GW (Rec: 08/10/20 08:51 GW [place] [id number]) Site Subcutaneous Injection Site Left Abdomen Hydromorphone HCl (Dilaudid Inj Syringe) 0.5 mg IVP Q2H PRN PRN Reason: Pain 8 to 10 Last Admin: 08/10/20 15:00 Dose: 0.5 mg Documented by: MARISOL Pain Assessment Document 08/10/20 15:00 GW (Rec: 08/10/20 15:00 GW [place] [id number]) Pain Level Pain Scale Used 0-10 Intensity (0-10) 9 Lidocaine (Lidoderm Patch) 1 patch TOP DAILY PRN PRN Reason: PAIN Last Admin: 08/08/20 18:31 Dose: 1 patch Documented by: SANTANA Transdermal Patch Site Document 08/08/20 18:31 LGS (Rec: 08/08/20 18:34 LGS [place] [id number]) Transdermal Patch Site Transdermal Site Right lower back Re-Assess: Remove Patch Document 08/09/20 06:31 RO (Rec: 08/09/20 06:40 RO [id number]) Assessment Remove Patch Yes Nicotine (Nicoderm) 1 patch TOP DAILY COUNTS INCLUDE 234 BEDS AT THE [facility] Last Admin: 08/10/20 08:50 Dose: 1 patch Documented by: MARISOL Transdermal Patch Site Document 08/10/20 08:50 GW (Rec: 08/10/20 08:50 GW [id number]) Transdermal Patch Site Transdermal Site Left upper back Non-Formulary Medication (Buprenorphine Hcl [Buprenorphine Hcl]) 24 mg SL DAILY BETTIE Last Admin: 08/10/20 08:49 Dose: Not Given Documented by: MARISOL Non-Admin Reason: pt did not bring in Olanzapine (Zyprexa Odt) 2.5 mg TL DAILY COUNTS INCLUDE 234 BEDS AT THE [facility] Last Admin: 08/10/20 08:50 Dose: 2.5 mg Documented by: MARISOL Ondansetron HCl (Zofran Inj) 4 mg IVP Q6HR PRN PRN Reason: Nausea / Vomiting Last Admin: 08/10/20 12:47 Dose: 4 mg Documented by: MARISOL Re-Assess: General PRN Medication Reasses Document 08/10/20 13:17 GW (Rec: 08/10/20 13:34 GW [id number]) Reassessment Effective/Ineffective Effective Oxycodone HCl (Roxicodone) 20 mg PO Q6HR PRN PRN Reason: PAIN Last Admin: 08/10/20 12:01 Dose: 20 mg Documented by: BOBBY Pain Assessment Document 08/10/20 12:01 (Rec: 08/10/20 12:01 MH [id number]) Pain Level Pain Scale Used 0-10 Intensity (0-10) 8 Re-Assess: Pain Reassessment Document 08/10/20 13:01 GW (Rec: 08/10/20 13:34 GW [id number]) Reassessment Unable to Assess Asleep Pantoprazole Sodium (Protonix) 40 mg PO QDAC BETTIE Last Admin: 08/10/20 06:01 Dose: 40 mg Documented by: SENG Sodium Chloride (Normal Saline Flush 0.9%) 10 ml IVP PRN PRN PRN Reason: NEEDED PER PROVIDER ORDERS Last Admin: 08/10/20 15:00 Dose: 10 ml Documented by: MARISOL Sodium Chloride (Normal Saline Flush 0.9%) 10 ml IVP 0100,0900,1700 COUNTS INCLUDE 234 BEDS AT THE [facility] Last Admin: 08/10/20 08:51 Dose: 10 ml Documented by: MARISOL Trazodone HCl (Desyrel) 50 mg PO QPM PRN PRN Reason: Insomnia Last Admin: 08/09/20 22:55 Dose: 50 mg Documented by: REKHA Discontinued Medications Acetaminophen (Tylenol) 650 mg PO Q4HR PRN PRN Reason: Pain 1 to 4 Last Admin: 08/04/20 08:18 Dose: 650 mg Documented by: PEDRITO Acetaminophen Assessment Document 08/04/20 08:18 SAT (Rec: 08/04/20 08:18 SAT [id number]) Pain or Fever Assessment Pain Scale Used 0-10 Pain Intensity (0-10) 8 Fever No Re-Assess: Acetaminophen Effectiveness Document 08/04/20 09:18 SAT (Rec: 08/04/20 10:44 SAT [id number]) Effect on Pain or Fever Pain Scale Used 0-10 Pain Intensity (0-10) 7 Effective/Ineffective Effective Hydromorphone HCl (Dilaudid Inj Carp) 2 mg IVP ONCE STA Stop: 08/03/20 17:27 Last Admin: 08/03/20 19:26 Dose: Not Given Documented by: FARSHAD Non-Admin Reason: pt asleep Pain Assessment Document 08/03/20 19:26 KS (Rec: 08/03/20 19:27 KS [id number]) Pain Level Non-Numerical Pain Rating sleeping during admission assessment Lactated Ringer's (Lr) 1,000 mls @ 50 mls/hr IV .Q20H COUNTS INCLUDE 234 BEDS AT THE [facility] Last Infusion: 08/09/20 17:46 Dose: 0 mls/hr Documented by: REKHA Medication Titration Document 08/09/20 17:46 AB (Rec: 08/09/20 17:46 AB [id number]) Titration Intake Titration Intake 937.167 Cumulative Intake 953 Container Volume 0 Elapsed Time 5d 14h 59m Titration Dosing IV Rate 0 Increase/Decrease Infused Cumulative Dose Not Applicable Total Intake (Rx) 6,821.34 Volume Adjustment/Waste 47 Acetaminophen (Ofirmev) 100 mls @ 400 mls/hr IV Q6HR COUNTS INCLUDE 234 BEDS AT THE [facility] Last Infusion: 08/08/20 07:05 Dose: 0 mls/hr Documented by: FRANTZ Medication Titration Document 08/08/20 07:05 DMS (Rec: 08/08/20 07:06 DMS [id number]) Titration Intake Titration Intake 100 Cumulative Intake 100 Container Volume 0 Elapsed Time 6h 28m Titration Dosing IV Rate 0 Increase/Decrease Infused Cumulative Dose 43067 Total Intake (Rx) 1,400 Volume Adjustment/Waste 0 Acetaminophen (Ofirmev) 100 mls @ 400 mls/hr IV Q6HR STA Stop: 08/07/20 19:15 Last Admin: 08/07/20 19:15 Dose: Not Given Documented by: RUT Non-Admin Reason: Wrong entry per Dr. Abdalla Ketorolac Tromethamine (Toradol Inj (15mg)) 15 mg IVP Q6HR COUNTS INCLUDE 234 BEDS AT THE [facility] Stop: 08/09/20 12:59 Last Admin: 08/06/20 12:32 Dose: 15 mg Documented by: BOBBY Pain Assessment Document 08/06/20 12:32 (Rec: 08/06/20 12:32 MH [place] [id number]) Pain Level Pain Scale Used 0-10 Intensity (0-10) 9 Oxycodone HCl (Roxicodone) 5 mg PO Q4HR PRN PRN Reason: Pain 5 to 7 Last Admin: 08/09/20 09:05 Dose: 5 mg Documented by: [facility] Pain Assessment Document 08/09/20 09:05 OUTSIDE CUTTER HAND (Rec: 08/09/20 09:05 OUTSIDE CUTTER HAND [id number]) Pain Level Pain Scale Used 0-10 Intensity (0-10) 8 Re-Assess: Pain Reassessment Document 08/09/20 10:05 GW (Rec: 08/09/20 10:17 GW [id number]) Reassessment Pain Scale Used 0-10 Pain Intensity (0-10) 8 Objective - Vital Signs/Intake & Output Reviewed Vital Signs: Yes Vital Signs: Vital Signs x48h Temp Pulse Resp BP Pulse Ox 08/10/20 08:00 36.6 C 85 18 132/70 H 97 Intake & Output: Intake & Output 08/07/20 08/08/20 08/09/20 08/10/20 23:59 23:59 23:59 23:59 Intake Total 3580.5 8473.253 6198.167 1150 Output Total 1350 1500 1200 1550 Balance 2230.5 455.833 577.167 -400 - Objective General Appearance: positive: No acute distress, Alert Eyes Bilateral: positive: Normal inspection, PERRL, EOMI ENT: positive: ENT inspection nml Neck: positive: Nml inspection Respiratory: positive: No respiratory distress, Breath sounds nml Cardiovascular: positive: Regular rate & rhythm Abdomen: positive: Non-tender, Nml bowel sounds Skin: positive: Color nml, No rash Extremities: positive: Non-tender - Lab Results Fish Bones: 08/08/20 05:21 08/08/20 05:21 Assessment/Plan - Problem List (1) Pneumothorax, right Impression: Improving with change in pain meds. Social service and nurse outreach case manager staff have been working very hard to find a rehab facility but with no success. The patient reports she does not have friends or family that she could lodge with for a while. We are looking for other avenues of support for her. I will request home health for PT and OT. She will be medically clear for discharge in the AM.
[2020-08-10] MEDS: traZODone 50 MG TABLET PO PRN (21:25)
[2020-08-11] MEDS: SODIUM CHLORIDE FLUSH 0.9% 10 ML SYRINGE IVP SCH ×3 (00:56→15:43)
[2020-08-11] MEDS: oxyCODONE 5 MG TABLET PO PRN ×3 (04:43→18:39)
[2020-08-11] MEDS: HYDROmorphone 0.5 MG/0.5 ML SYRINGE IVP PRN ×8 (04:47→22:49)
[2020-08-11] MEDS: ACETAMINOPHEN 500 MG TABLET PO SCH ×3 (06:09→21:43)
[2020-08-11] MEDS: PANTOPRAZOLE 40 MG TABLET PO SCH (06:10)
[2020-08-11] MEDS: CYCLOBENZAPRINE 10 MG TABLET PO PRN ×3 (06:10→20:20)
[2020-08-11] MEDS: NICOTINE 14 MG PATCH TOP SCH (08:00)
[2020-08-11] MEDS: OLANZapine ODT 5 MG TABLET TL SCH (08:00)
[2020-08-11] MEDS: ENOXAPARIN 40 MG/0.4 ML SYRINGE SUBQ SCH (08:00)
[2020-08-11] MEDS: DULoxetine 20 MG CAPSULE PO SCH (08:00)
[2020-08-11] MEDS: BUPRENORPHINE HCL SL SCH (10:27)
[2020-08-11] MEDS: ONDANSETRON 4 MG/2 ML VIAL IVP PRN ×2 (13:02→18:20)
[2020-08-11] MEDS: SODIUM CHLORIDE FLUSH 0.9% 10 ML SYRINGE IVP PRN ×4 (13:47→22:49)
[2020-08-11] MEDS: traZODone 50 MG TABLET PO PRN (21:43)
[2020-08-12] MEDS: oxyCODONE 5 MG TABLET PO PRN ×3 (00:56→12:09)
[2020-08-12] MEDS: HYDROmorphone 0.5 MG/0.5 ML SYRINGE IVP PRN ×3 (00:57→12:54)
[2020-08-12] MEDS: SODIUM CHLORIDE FLUSH 0.9% 10 ML SYRINGE IVP SCH ×2 (01:02→08:02)
[2020-08-12] MEDS: ACETAMINOPHEN 500 MG TABLET PO SCH ×2 (06:19→15:38)
[2020-08-12] MEDS: PANTOPRAZOLE 40 MG TABLET PO SCH (06:19)
[2020-08-12] MEDS: DULoxetine 20 MG CAPSULE PO SCH (08:00)
[2020-08-12] MEDS: CYCLOBENZAPRINE 10 MG TABLET PO PRN ×2 (08:00→15:42)
[2020-08-12] MEDS: OLANZapine ODT 5 MG TABLET TL SCH (08:00)
[2020-08-12] MEDS: NICOTINE 14 MG PATCH TOP SCH (08:00)
[2020-08-12] MEDS: ENOXAPARIN 40 MG/0.4 ML SYRINGE SUBQ SCH (08:01)
[2020-08-12] MEDS: BUPRENORPHINE HCL SL SCH (08:01)
--- NOTE | 2020-08-12 09:09 | PROVIDER PROGRESS NOTE ---
Progress Note Subjective Inpatient for pneumothorax, narcotic dependence and management, recent spine surgery and debility. Objective Afebrile hemodynamic acceptable General Appearance: positive: No acute distress Eyes Bilateral: positive: Normal inspection ENT: positive: ENT inspection nml Neck: positive: Nml inspection Respiratory: positive: Chest non-tender, No respiratory distress, Breath sounds nml. negative: Wheezes, Rales, Rhonchi Cardiovascular: positive: Regular rate & rhythm Abdomen: positive: No distention, Other. negative: Guarding, Rebound Extremities: positive: Non-tender, Full ROM, Nml appearance Neurologic/Psychiatric: positive: Oriented x3, CN's nml (2-12) X-ray shows near complete resolution of pneumothorax Impression/Plan Hospital day 8 admission for pneumothorax, narcotic dependence, recent spine surgery debility, disposition challenge as a relates to placement. Currently stable from physical therapy and social work standpoint for return to home. (1) GI - IVF, bowel regimen, advance diet as tolerated. GI ppx. [Anticipate ileus]. Opiate sparring analgesia. (2) SURGERY - doing well from a respiratory standpoint with no concern for any need for intervention secondary to pneumothorax. (3) Renal/Lytes - continue IVF. Renal indices within normal limits. (4) Respiratory - O2 as necessary. Continue IS. Pneumothorax near complete resolution. (5) Heme - Will continue with DVT ppx. H/H stable. (6) Cardiovascular - HD acceptable. (7) Neuro - Opiate sparring analgesia. Narcotic management sparingly. Antispasmodics with Robaxin. [Toradol]. Neuropathic agents. (8) Plan for discharge in the next 24 to 48 hours Please note that voice recognition software was used to transcribe this note and inadvertent errors might persist in spite of review and editing. I am obliged to you for your attention. I am thankful to you for allowing me to participate with you in this care of this patient.
--- NOTE | 2020-08-12 13:37 | Discharge Plan ---
Discharge Plan Problem Reviewed?: Yes Disposition: Home Health Service Condition: Stable Diet: Regular Activity Restrictions: Physical Therapy ordered Shower Restrictions: No Driving Restrictions: Yes (No driving while taking narcotics, restriction per spine surgeon) Assistance Devices: Other (per physical therapy) Weight Bearing: Other (per historic spine surgery/surgeon) Instruction Topics: ED Drug Abuse Narcotic Sedative Rx Health Concerns: DISCHARGE INSTRUCTIONS TEMPLATE: No heavy lifting, pushing, or pulling. Stairs are allowed, no strenuous/exertional activities. 5-10lbs weight carrying limit (i.e. gallon of milk) If provided, abdominal binder while out of bed and while ambulating. Call or proceed to clinic/ER for fevers, severe pain, nausea, vomiting, inability to pass flatus/stool, bleeding, wound redness/discharge, weakness, excessively loose stool/diarrhea, or for any other reasonably worrisome symptom or concern. Soft diet, no raw vegetables, avoid high fiber foods. Colace 100mg by mouth twice to three times daily while taking narcotic pain medication. If no bowel movement in 24-48hr, may take 17g Miralax in 8oz water twice daily until bowel movement. May shower, no submersive bathing. Follow up in clinic in 2-4 weeks for wound check and staple removal. No driving while taking narcotic pain medications. Follow up with primary care provider and/or medical subspecialist following discharge as well. Patient to continue with follow-up as outpatient per spine surgery. Patient to follow-up for narcotic/opiate management through pain specialist and not to seek supplement medications outside of her presumptive contract. Plan of Treatment: 1. Patient to follow-up with her spine surgeon 2. Patient to follow-up with primary care and consider repeat chest x-ray to monitor for any residual or recurrent pulmonary complications 3. Patient to proceed to the emergency room for any recurrent shortness of breath chest pain or other concerns 4. Continue with home physical therapy, home nursing care, home social work. Assessment: Patient with no shortness of breath/dyspnea. No go pleuritic chest pain. Hemodynamically acceptable. No shortness of breath with ambulation. Stable from a surgical standpoint and appropriate for discharge. Above listed follow- up. Follow-Up Care: Home Health - RN, Home Health - PT No Smoking: If you smoke, Please STOP! Call for help.
--- NOTE | 2020-08-12 13:49 | DISCHARGE SUMMARY ---
Discharge Summary Admit Date: 08/04/20 Discharge Date: 08/12/20 Discharging Provider: Johnnie Primary Care Provider: Rm Code Status: Attempt Resuscitation Condition at Discharge: Stable Discharge Disposition: Home Health Service - DIAGNOSES Admission Diagnoses: 1. Pneumothorax 2. Recent spine surgery 3. Debility 4. Severe protein malnutrition 5. Narcotic dependence Discharge Diagnoses with Status of Each Condition: 1. Pneumothorax - RESOLVED 2. Recent spine surgery - CURRENT 3. Debility - CURRENT 4. Severe protein malnutrition - CURREN 5. Narcotic dependence - CURRENT - HPI History of Present Illness: Gemma is an unfortunate 65 year old lady who is well known to our ED and Medicine staff. 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 She has chronic pain and has required narcotics for pain control for many years. He most recent operation was a thoracic spinal fusion at [facility] in June of this year. She reports she was standing at the stove boiling water on Saturday night when she felt her legs "give way" and she fell to the floor landing on her right side. She denies any loss of consciousness. She did not hit her head. She says she has had right sided chest pain and pain with deep breaths since that time. She spoke with her sister per telephone yesterday and expressed her discomfort. Her sister encouraged her to come to the ED for evaluation. In the ED, she was found to have normal vitals and O2 saturation. CXR revealed a 10 - 15% right pneumothorax without any obvious rib fractures. She is admitted for pain control, observation, supportive care, and consideration for placement due to numerous falls and fear of returning to her home due to this reason. She reports her pain continues to be poorly controlled. - CONSULTS | PROCEDURES Consultations: None - HOSPITAL COURSE Hospital Course: Did with challenging pain management given her history. Daily optimization of pain management. Continued throughout the entirety of her course to be a challenge for placement. Day 2 - Gemma reports she continues to be "miserable". Was quite unsteady on her feet with PT. Reports her pain is so severe she has "no apetite". Reiterates a fear of falling at home and adds she does not feel safe. No family members able to help with care currently. Not safe for discharge to home. She would benefit from a stay with [facility] to help with gate rehab as well as all activities of daily living. She is not able to function safely at this point and is therefore not eligible for discharge. Day 3 - Gemma reports no real change. Still complaining her pain is not well controlled. Has been up with assistance with PT. Nursing staff reports she has been asking for Dilaudid with regularity. COVID test done this AM in preparation for placement. Tolerating po. No nausea. Day 4 - Objectively improving to some degree with will need placement with care home for improvement of strength and stability. Will try lidocaine patches for the right chest wall pain. Placement is a challenge and she is not safe to discharge to home. Will try adding Zyprexa 2.5 mg qd. Continue IS. Labs and chest xray both reassuring today. Placement continues to be a struggle. I have added cymbalta and Oxycodone to the patient's MAR. Hopefully we will get more satisfactory pain control. Pain is much better today. She reports it was much more manageable on her home dose of Oxycodone and she was able to participate with physical therapy and even to walk some stairs. She is in better spirits and even talking about trying to go home if we could find some help for her there. She denies shortness of breath. Day 5 - Improving with change in pain meds. Social service and case manager staff have been working very hard to find a rehab facility but with no success. The patient reports she does not have friends or family that she could lodge with for a while. We are looking for other avenues of support for her. I will request home health for PT and OT. She will be medically clear for discharge in the AM. Day 6 patient was appropriate for discharge per physical therapy and social work for discharge to home. Her pneumothorax had resolved. She had been optimized from a pain medication standpoint. She would follow-up with her neuro spine surgeon for her recent intervention. Advised of any worrisome features to return back to her primary care versus emergency room. Please note that voice recognition software was used to transcribe this note and inadvertent errors might persist in spite of review and editing. I am obliged to you for your attention. I am thankful to you for allowing me to participate with you in this care of this patient. - ALLERGIES Allergies/Adverse Reactions: Allergies Allergy/AdvReac Type Severity Reaction Status Date / Time aspirin AdvReac Nausea Verified 08/03/20 15:59 NSAIDS (Non-Steroidal AdvReac Nausea Verified 08/03/20 15:59 Anti-Inflamma - MEDICATIONS Home Medications: Ambulatory Orders Medication Instructions Recorded Confirmed Alendronate Sodium 70 mg PO Q7D 03/12/20 08/04/20 Cyclobenzaprine HCl 10 mg PO TID PRN 03/12/20 08/04/20 Ondansetron [Ondansetron Odt] 4 mg PO DAILY PRN 03/12/20 08/04/20 Trazodone HCl 50 mg PO QPM PRN 03/12/20 08/04/20 Nicotine 14 mg Patch [Nicoderm] 1 patch TOP DAILY #14 patch 03/16/20 08/04/20 buprenorphine HCL [Buprenorphine 24 mg SL DAILY 08/04/20 08/04/20 HCl] Acetaminophen [Tylenol] 1,000 mg PO TID tablet 08/12/20 DULoxetine [Cymbalta] 20 mg PO DAILY capsule 08/12/20 Ibuprofen [Motrin] 600 mg PO Q6HR PRN tablet 08/12/20 Lidocaine Patch 5% [Lidoderm Patch] 1 patch TOP DAILY PRN patch 08/12/20 OLANZapine ODT [Zyprexa Odt] 2.5 mg TL DAILY tablet 08/12/20 Pantoprazole [Protonix] 40 mg PO QDAC tablet 08/12/20 buprenorphine HCL [Buprenorphine 24 mg SL DAILY 08/12/20 HCl] oxyCODONE [Roxicodone] 20 mg PO Q6HR PRN tablet 08/12/20 - PHYSICAL EXAM AT DISCHARGE General Appearance: positive: No acute distress, Alert Eyes Bilateral: positive: Normal inspection, PERRL, EOMI ENT: positive: ENT inspection nml Neck: positive: Nml inspection Respiratory: positive: Chest non-tender, No respiratory distress, Breath sounds nml. negative: Wheezes, Rales, Rhonchi Cardiovascular: positive: Regular rate & rhythm Abdomen: positive: Non-tender Rectal: positive: Non-tender Back: positive: Nml inspection Skin: positive: No rash Extremities: positive: Non-tender, Full ROM Neurologic/Psychiatric: positive: Oriented x3, CN's nml (2-12), Motor nml, Sensation nml, Mood/affect nml - LABS Result Diagrams: 08/08/20 05:21 08/08/20 05:21 - DIAGNOSTIC IMAGING Diagnostic Imaging Results: Prelim report reviewed - SEPSIS Current Stage of Sepsis: Ruled out - FOLLOW UP Follow Up: Follow-up with primary care and narcotic management through her silk screen painter. - TIME SPENT Time Spent in Discharge (Minutes): 100
[2020-08-12 15:49] VITALS: BP 120/67
== END 2020-08-12 17:04 | disposition home health service (06) | DRG 199 ==
LOC: EDUNIT# → ED 15:50 → MS2 17:36 → OBSVTOIN 08-05 13:42
PROVIDERS: ADMIT Surgery; ATTEND Surgery
DX: S27.0XXA Traumatic pneumothorax, initial encounter (principal); E43 Unspecified severe protein-calorie malnutrition; F11.20 Opioid dependence, uncomplicated; W18.30XA Fall on same level, unspecified, initial encounter; Y93.G3 Activity, cooking and baking; Y92.000 Kitchen of unspecified non-institutional (private) residence as the place of occurrence of the external cause; Z91.81 History of falling; G89.29 Other chronic pain; M47.819 Spondylosis without myelopathy or radiculopathy, site unspecified; M81.0 Age-related osteoporosis without current pathological fracture; F10.10 Alcohol abuse, uncomplicated; F32.9 Major depressive disorder, single episode, unspecified; F41.9 Anxiety disorder, unspecified; I10 Essential (primary) hypertension; K21.9 Gastro-esophageal reflux disease without esophagitis; Z20.828 Contact with and (suspected) exposure to other viral communicable diseases; Z74.2 Need for assistance at home and no other household member able to render care; Z74.09 Other reduced mobility; Z68.23 Body mass index [BMI] 23.0-23.9, adult; Z98.1 Arthrodesis status; Z87.891 Personal history of nicotine dependence
CPT/HCPCS: 36415; 71045; 71046; 71250; 74176; 80048; 80053; 83690; 85025; 87635; 96361; 96372; 96374; 96375; 96376; 97116; 97161; 97164; 99284; 99285; A9270; G0378; J0131; J1170; J1650; J7120

== ENCOUNTER 2020-08-25 08:00 | Outpatient (CLI) | payer MEDICAID | END 2020-08-25 23:59 | disposition home or self-care (01) | LOC: LAB.R 08:00 | PROVIDERS: ATTEND Family Medicine | DX: R05 Cough (principal); Z20.828 Contact with and (suspected) exposure to other viral communicable diseases ==

== ENCOUNTER 2020-09-07 10:21 | Outpatient (CLI) | payer MEDICAID ==
--- NOTE | 2020-09-07 10:25 | XRAY Report ---
PROCEDURE: Chest 2 View X-Ray INDICATIONS: Upper respiratory infection, cough TECHNIQUE: 2 view(s) of the chest. COMPARISON: None. FINDINGS: Surgical changes and devices: None. Lungs and pleura: Trace right apical pneumothorax has further decreased in size but is not entirely r esolved. Chronic scarring in the right lung base is similar. The left lung and pleural space are yamile r. Mediastinum: Mediastinal contours are normal. Heart size is normal. Bones and chest wall: No suspicious bony abnormalities. Soft tissues appear unremarkable. IMPRESSION: Decreased but not entirely resolved trace right apical pneumothorax. Reviewed by: Jayson Goldstein MD on 09/07/2020 10:23 AM PDT Approved by: Jayson Goldstein MD on 09/07/2020 10:23 AM PDT Station ID: [id number]
== END 2020-09-07 23:59 | disposition home or self-care (01) ==
LOC: DI.WCP 10:21
PROVIDERS: ATTEND Family Medicine
DX: J93.9 Pneumothorax, unspecified (principal)
CPT/HCPCS: 71046

== ENCOUNTER 2020-12-29 14:59 | Outpatient (CLI) | payer MEDICAID ==
--- NOTE | 2020-12-29 15:59 | XRAY Report ---
PROCEDURE: Lumbar Spine 2 View INDICATIONS: OSTEOPOROSIS, THORACIC BACK PAIN, NECK BACK PAIN TECHNIQUE: 2 views of the lumbar spine were acquired. COMPARISON: None. FINDINGS: Bones: 5 [id number] vertebrae are present. There is normal bony alignment. No vertebral body compression fractures. No suspicious bony lesions. Posterior fusion hardware extending from the low er thoracic spine to the lower lumbar spine is present, with pedicular screws at T12, L1, L2, L3, and L4. Hardware is intact as visualized. Soft tissues: Overlying bowel gas pattern is normal. No suspicious soft tissue calcifications. IMPRESSION: Postsurgical sequelae. Reviewed by: Mela Zamora MD on 12/29/2020 3:58 PM PST Approved by: Mela Zamora MD on 12/29/2020 3:58 PM PST Station ID: [id number]
--- NOTE | 2020-12-29 16:10 | XRAY Report ---
PROCEDURE: Thoracic Spine 2 View INDICATIONS: OSTEOPOROSIS, THORACIC BACK PAIN, NECK BACK PAIN TECHNIQUE: 2 views of the thoracic spine were acquired. COMPARISON: None. FINDINGS: Bones: No fractures or dislocations. No suspicious bony lesions. 12 pairs of ribs are noted, and a ppear intact where visualized. There has been extensive spine fusion procedure, along the thoracic a nd extending into the lumbosacral spine, bridging at the low thoracic spine between devices. No devic e loosening or disruption is seen. Soft tissues: No paravertebral stripe thickening. IMPRESSION: Extensive prior thoracic and lumbosacral spine fusion procedure. No acute trauma found. Reviewed by: Dimas Garcia MD on 12/29/2020 4:09 PM PST Approved by: Dimas Garcia MD on 12/29/2020 4:09 PM PST Station ID: [id number]
--- NOTE | 2020-12-29 16:13 | XRAY Report ---
PROCEDURE: Cervical Spine 2 View INDICATIONS: OSTEOPOROSIS, THORACIC BACK PAIN, NECK BACK PAIN TECHNIQUE: 3 view(s) of the cervical spine were acquired. COMPARISON: Thoracic and lumbosacral spine plain film same day. FINDINGS: Bones: No fractures or dislocations to the T1 level. The lateral masses of C1 appear intact on the odontoid view. No suspicious bony lesions. Note is made of slight anterolisthesis of C2 on C3, grad e 1. There is moderate anterolisthesis of C3 on C4. This also is grade 1. Slight retrolisthesis of C4 on C5 is present. Degenerative disc height reduction is moderate at C3-4, moderately severe at C4-5 and moderate at C5-6. Soft tissues: No prevertebral soft tissue swelling. IMPRESSION: The degenerative changes over the middle and lower thirds of the cervical spine allow li gamentous laxity and grade 1 anterolisthesis and retrolisthesis as discussed above. Disc height reduc tion is reduced significantly at C3-4, especially C4-5 and to a lesser degree C5-6. Reviewed by: Dimas Garcia MD on 12/29/2020 4:12 PM PST Approved by: Dimas Garcia MD on 12/29/2020 4:12 PM PST Station ID: [id number]
== END 2020-12-29 15:00 | disposition home or self-care (01) ==
LOC: DI 14:59
PROVIDERS: ATTEND Nurse Practitioner
DX: M81.0 Age-related osteoporosis without current pathological fracture (principal); M54.6 Pain in thoracic spine; Z98.1 Arthrodesis status; M47.812 Spondylosis without myelopathy or radiculopathy, cervical region

== ENCOUNTER 2021-06-05 14:39 | Emergency (ER) | payer MEDICARE, MEDICAID ==
[2021-06-05 15:19] LABS: BASOPHILS % (AUTO) 0.2 %; EOSINOPHILS % (AUTO) 0.2 %; HCT - HEMATOCRIT 46.5 % (37.0-47.0); HGB - HEMOGLOBIN 16.2 g/dL (12.0-16.0); LYMPHOCYTES # (AUTO) 1.9 10^3/uL (1.5-3.5); LYMPHOCYTES % (AUTO) 12.8 %; MEAN CORPUSCULAR HEMOGLOBIN 32.6 pg (27.0-31.0); MEAN CORPUSCULAR HGB CONC 34.8 g/dL (32.0-36.0); MEAN CORPUSCULAR VOLUME 93.6 fL (81.0-99.0); MEAN PLATELET VOLUME 8.4 fL (7.9-10.8); MONOCYTES # (AUTO) 0.8 10^3/uL (0.0-1.0); MONOCYTES % (AUTO) 5.7 %; NEUTROPHILS # (AUTO) 11.9 10^3/uL (1.5-6.6); NEUTROPHILS % (AUTO) 80.6 %; PLT - PLATELET COUNT 367 10^3/uL (130-450); RED BLOOD COUNT 4.97 10^6/uL (4.20-5.40); RED CELL DISTRIBUTION WIDTH 14.3 % (12.0-15.0); WHITE BLOOD COUNT 14.7 x10^3/uL (4.8-10.8)
[2021-06-05 15:41] LABS: ALBUMIN 4.7 g/dL (3.2-5.5); ALBUMIN/GLOBULIN RATIO 1.3 (1.0-2.2); BILIRUBIN,TOTAL 0.7 mg/dL (0.2-1.0); CALCIUM 10.4 mg/dL (8.5-10.3); CREATININE 0.5 mg/dL (0.4-1.0); POTASSIUM 4.4 mmol/L (3.5-5.0); TOTAL PROTEIN 8.2 g/dL (6.7-8.2)
[2021-06-05] MEDS ORDERED: PROMETHAZINE 25 MG/1 ML VIAL IM STA (16:11)
[2021-06-05] MEDS ORDERED: MORPHINE 2 MG/ML CARPUJECT IM STA (16:12)
[2021-06-05] MEDS ORDERED: SODIUM CHLORIDE 0.9% 1,000 ML IV STA (16:47)
--- NOTE | 2021-06-05 16:48 | ED Physician Documentation ---
History of Present Illness - Stated complaint Stated Complaint: VOMITING,CAN'T EAT,WEIGHT LOSS - Chief complaint Chief Complaint: Abd Pain - History obtained from History obtained from: Patient - History of Present Illness Pain level max: 10 Pain level now: 10 - Additonal information Additional information: Patient is a 66-year-old female who presents to the emergency department with abdominal pain. This been ongoing for the past several weeks. She states she has lost about 30 pounds over the last 2 months. She states she was scheduled for a colonoscopy and endoscopy, but could not keep the prep down several weeks ago. Called her doctor today who sent her here for evaluation. Nothing makes it better or worse. Longstanding history of alcoholism, last drink she states was about 4 years ago. Describes the pain as generalized in her abdomen, nonradiating, 10 out of 10, cramping. No fevers. No chills. No recent antibiotics. Nothing makes it better or worse. 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 : None HEENT: None Psych: Depression, Anxiety Musculoskeletal: Osteoarthritis, Fibromyalgia, Chronic back pain Derm: None - Past Surgical History Past Surgical History: Yes General: Cholecystectomy, Bowel surgery Ortho: Spine surgery /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: Hysterectomy - Present Medications Home Medications: Ambulatory Orders Medication Instructions Recorded Confirmed Cyclobenzaprine HCl 10 mg PO TID PRN 03/12/20 06/05/21 Ondansetron [Ondansetron Odt] 4 mg PO DAILY PRN 03/12/20 06/05/21 Trazodone HCl 50 mg PO QPM PRN 03/12/20 06/05/21 buprenorphine HCL [Buprenorphine 24 mg SL DAILY 08/04/20 06/05/21 HCl] Acetaminophen [Tylenol] 1,000 mg PO TID tablet 08/12/20 06/05/21 DULoxetine [Cymbalta] 20 mg PO DAILY capsule 08/12/20 06/05/21 Pantoprazole [Protonix] 40 mg PO QDAC tablet 08/12/20 06/05/21 Ondansetron Odt [Zofran] 4 mg TL Q6H PRN #10 tablet 06/05/21 - Allergies Allergies/Adverse Reactions: Allergies Allergy/AdvReac Type Severity Reaction Status Date / Time aspirin AdvReac Nausea Verified 06/05/21 14:44 NSAIDS (Non-Steroidal AdvReac Nausea Verified 06/05/21 14:44 Anti-Inflamma - Social History Does the pt smoke?: No Smoking Status: Former smoker Does the pt drink ETOH?: Yes Does the pt have substance abuse?: Yes - Immunizations Immunizations are current?: Yes Immunizations: TDAP >10years/unknown, Other immun current - POLST Patient has POLST: No POLST Status: Full Code PD ED PE NORMAL - Vitals Vital signs reviewed: Yes - General General: Alert and oriented X 3, No acute distress, Well developed/nourished - HEENT HEENT: PERRL, Moist mucous membranes - Neck Neck: Supple, no meningeal sign - Cardiac Cardiac: RRR, Strong equal pulses - Respiratory Respiratory: No respiratory distress, Clear bilaterally - Abdomen Abdomen: Soft, Non tender, Non distended - Derm Derm: Warm and dry - Extremities Extremities: No edema - Neuro Neuro: Alert and oriented X 3 - Psych Psych: Normal mood, Normal affect Results - Vitals Vitals: Vital Signs - 24 hr 06/05/21 06/05/21 06/05/21 14:44 16:53 17:32 Temperature 36.5 C Heart Rate 120 H 89 101 H Respiratory 16 24 26 H Rate Blood Pressure 155/86 H 130/110 H 186/92 H O2 Saturation 97 99 100 06/05/21 06/05/21 20:00 20:40 Temperature 36.5 C Heart Rate 88 85 Respiratory 19 18 Rate Blood Pressure 143/86 H 144/85 H O2 Saturation 100 100 Oxygen O2 Source [With Activity] Nasal cannula O2 Source [Without Activity] Nasal cannula O2 Source Room air - Labs Labs: Laboratory Tests 06/05/21 06/05/21 06/05/21 15:14 15:14 15:14 WBC 14.7 H RBC 4.97 Hgb 16.2 H Hct 46.5 MCV 93.6 MCH 32.6 H MCHC 34.8 RDW 14.3 Plt Count 367 MPV 8.4 Neut # (Auto) 11.9 H Lymph # (Auto) 1.9 Twiggs # (Auto) 0.8 Eos # (Auto) 0.0 Baso # (Auto) 0.0 Absolute Nucleated RBC 0.00 Nucleated RBC % 0.0 Sodium 133 L Potassium 4.4 Chloride 101 Carbon Dioxide 22 Anion Gap 10.0 BUN 13 Creatinine 0.5 Estimated GFR (MDRD) 124 Glucose 104 H Calcium 10.4 H Total Bilirubin 0.7 AST 17 ALT 13 Alkaline Phosphatase 114 Total Protein 8.2 Albumin 4.7 Globulin 3.5 Albumin/Globulin Ratio 1.3 Lipase 25 Urine Color Urine Clarity Urine pH Ur Specific [place] Urine Protein Urine Glucose (UA) Urine Ketones Urine Occult Blood Urine Nitrite Urine Bilirubin Urine Urobilinogen Ur Leukocyte Esterase Ur Microscopic Review Urine Culture Comments Urine Opiates Screen Ur Oxycodone Screen Urine Methadone Screen Ur Propoxyphene Screen Ur Barbiturates Screen Ur Tricyclics Screen Ur Phencyclidine Scrn Ur Amphetamine Screen U Methamphetamines Scrn U Benzodiazepines Scrn Urine Cocaine Screen U Cannabinoids Screen Ethyl Alcohol < 5.0 06/05/21 06/05/21 18:25 18:25 WBC RBC Hgb Hct MCV MCH MCHC RDW Plt Count MPV Neut # (Auto) Lymph # (Auto) Twiggs # (Auto) Eos # (Auto) Baso # (Auto) Absolute Nucleated RBC Nucleated RBC % Sodium Potassium Chloride Carbon Dioxide Anion Gap BUN Creatinine Estimated GFR (MDRD) Glucose Calcium Total Bilirubin AST ALT Alkaline Phosphatase Total Protein Albumin Globulin Albumin/Globulin Ratio Lipase Urine Color YELLOW Urine Clarity CLEAR Urine pH 6.5 Ur Specific [place] 1.010 Urine Protein NEGATIVE Urine Glucose (UA) NEGATIVE Urine Ketones TRACE Urine Occult Blood NEGATIVE Urine Nitrite NEGATIVE Urine Bilirubin NEGATIVE Urine Urobilinogen 0.2 (NORMAL) Ur Leukocyte Esterase NEGATIVE Ur Microscopic Review NOT INDICATED Urine Culture Comments NOT INDICATED Urine Opiates Screen POSITIVE H Ur Oxycodone Screen NEGATIVE Urine Methadone Screen NEGATIVE Ur Propoxyphene Screen NEGATIVE Ur Barbiturates Screen NEGATIVE Ur Tricyclics Screen NEGATIVE Ur Phencyclidine Scrn NEGATIVE Ur Amphetamine Screen NEGATIVE U Methamphetamines Scrn NEGATIVE U Benzodiazepines Scrn NEGATIVE Urine Cocaine Screen NEGATIVE U Cannabinoids Screen POSITIVE H Ethyl Alcohol - Rads (name of study) CT abd/pelvis Radiology: Prelim report reviewed, EMP read contemporaneously, See rad report PD MEDICAL DECISION MAKING - ED course Complexity details: reviewed old records, reviewed results, re-evaluated patient, considered differential, d/w patient ED course: Patient is well-appearing, nontoxic. Afebrile. Tolerating p.o. without di fficulty here. Pain well controlled. Nausea well controlled. IV fluids given. She is on Suboxone chronically at home. We will prescribe a small amount of nausea medication and have her follow-up with her pain specialist for pain management. Unclear etiology of her symptoms. Recommend MRI/MRCP of her intrahepatic ductal dilatation and dilatation of the common bile duct. Patient counseled regarding signs and symptoms for which I believe and urgent re- evaluation would be necessary. Patient with good understanding of and agreement to plan and is comfortable going home at this time This document was made in part using voice recognition software. While efforts are made to proofread this document, sound alike and grammatical errors may occur. IMPRESSION: 1. Slightly increased prominence of diffuse intrahepatic ductal dilatation and dilatation of the common bile duct. This may be related to prior cholecystectomy; however, it appears more than expected. No obstructing mass or intraluminal filling defect near the ampulla. Consider further evaluation with nonemergent MRI of the abdomen to include MRCP sequences. There are clinical and laboratory findings for biliary obstruction. 2. Findings compatible with sequela of chronic pancreatitis. No evidence for acute pancreatitis today's study. 3. Large bilateral renal cysts. No hydronephrosis seen. 4. Atherosclerosis. 5. Stable alignment of posterior spinal fusion of the thoracolumbar spine terminating at the level of L4. 6. Moderate fecal burden seen throughout the imaged colon. No evidence for obstruction. Departure - Departure Disposition: 01 Home, Self Care Clinical Impression: Abdominal pain Qualifiers: Abdominal location: generalized Qualified Code(s): R10.84 - Generalized abdominal pain Vomiting Qualifiers: Vomiting type: unspecified Vomiting Intractability: non-intractable Nausea presence: with nausea Qualified Code(s): R11.2 - Nausea with vomiting, unspecified Condition: Good Instructions: ED Abdominal Pain Unkn Cause, ED Nausea Vomiting Follow-Up: Nori Leslie ARNP [Primary Care Provider] - Within 3 Days Prescriptions: Ondansetron Odt [Zofran] 4 mg TL Q6H PRN #10 tablet PRN Reason: Nausea / Vomiting Comments: Please follow-up with your doctor for further care. You need to follow-up with your pain medication prescriber for any further narcotics and pain medication. You need to follow-up with your doctor regarding your CT findings and need for an MRI/MRCP of your liver. Return if you worsen. IMPRESSION: 1. Slightly increased prominence of diffuse intrahepatic ductal dilatation and dilatation of the common bile duct. This may be related to prior cholecystectomy; however, it appears more than expected. No obstructing mass or intraluminal filling defect near the ampulla. Consider further evaluation with nonemergent MRI of the abdomen to include MRCP sequences. There are clinical and laboratory findings for biliary obstruction. 2. Findings compatible with sequela of chronic pancreatitis. No evidence for acute pancreatitis today's study. 3. Large bilateral renal cysts. No hydronephrosis seen. 4. Atherosclerosis. 5. Stable alignment of posterior spinal fusion of the thoracolumbar spine terminating at the level of L4. 6. Moderate fecal burden seen throughout the imaged colon. No evidence for obstruction. Discharge Date/Time: 06/05/21 20:40
[2021-06-05] MEDS ORDERED: IOVERSOL 320 100 ML VIAL IVP ONE ×2 (16:49→21:04)
[2021-06-05] MEDS ORDERED: MORPHINE 2 MG/ML CARPUJECT IVP STA (17:15)
[2021-06-05] MEDS ORDERED: ONDANSETRON 4 MG/2 ML VIAL IVP STA (17:20)
[2021-06-05 18:29] LABS: MUDS CUTOFF CONCENTRATIONS CUTOFF CONC BELOW:
[2021-06-05 18:33] LABS: BILIRUBIN,URINE NEGATIVE (NEGATIVE); GLUCOSE, URINE (UA) NEGATIVE (NEGATIVE); KETONES,URINE (UA) TRACE mg/dL (NEGATIVE); LEUKOCYTE ESTERASE, URINE NEGATIVE (NEGATIVE); NITRITE,URINE NEGATIVE (NEGATIVE); OCCULT BLOOD,URINE NEGATIVE (NEGATIVE); PH,URINE 6.5 PH (5.0-7.5); PROTEIN,URINE NEGATIVE (NEGATIVE); UROBILINOGEN,URINE 0.2 (NORMAL) E.U./dL (NORMAL)
[2021-06-05 18:34] LABS: CLARITY,URINE CLEAR (CLEAR)
[2021-06-05 18:40] LABS: AMPHETAMINE SCREEN,URINE NEGATIVE (NEGATIVE); BARBITURATE SCREEN,UR NEGATIVE (NEGATIVE); BENZODIAZEPINES SCREEN, URINE NEGATIVE (NEGATIVE); COCAINE SCREEN URINE NEGATIVE (NEGATIVE); METHADONE SCREEN, URINE NEGATIVE (NEGATIVE); METHAMPHETAMINES SCREEN, URINE NEGATIVE (NEGATIVE); OPIATE SCREEN, URINE POSITIVE (NEGATIVE); OXYCODONE SCREEN, URINE NEGATIVE (NEGATIVE); PROPOXYPHENE SCREEN, URINE NEGATIVE (NEGATIVE); THC CANNABINOID SCREEN, URINE POSITIVE (NEGATIVE); TRICYCLIC ANTIDEPRESSANT,URINE NEGATIVE (NEGATIVE)
[2021-06-05] MEDS ORDERED: DROPERIDOL 5 MG/2 ML VIAL IVP STA (19:12)
[2021-06-05] MEDS ORDERED: clonazePAM 0.5 MG TABLET PO STA ×2 (19:43→20:23)
--- NOTE | 2021-06-05 20:00 | CT Report ---
PROCEDURE: Abdomen/Pelvis W INDICATIONS: diffuse abd pain CONTRAST: IV CONTRAST: Optiray 320 ml: 100 PO CONTRAST: *NO PO CONTRAST TECHNIQUE: After the administration of weight appropriate dose of intravenous contrast, 5 mm thick sections acqu ired from the diaphragms to the symphysis. 5 mm thick coronal and sagittal reformats were acquired. For radiation dose reduction, the following was used: automated exposure control, adjustment of mA and/or kV according to patient size. COMPARISON: 08/03/2020. FINDINGS: Image quality: Study degraded by moderate beam hardening and streak artifact from multilevel spinal f usion hardware. ABDOMEN: Lung bases: Bibasilar atelectasis and scarring. Mild pulmonary emphysematous changes. Heart size is n ormal. Solid organs: Liver is homogeneous in echotexture and enhancement. No focal intrahepatic masses. The re is redemonstration of diffuse, moderate intrahepatic biliary ductal dilatation which appears sligh tly more pronounced however, prior studies were without intravenous contrast and difficult to visuali ze the biliary ductal system. Common bile duct measures up to 2.2 cm in diameter. Previously measurin g 2.0 cm. Status post cholecystectomy. Pancreas demonstrates diffuse coarse calcifications likely seq uela of prior episodes of pancreatitis. Main pancreatic duct is stable and prominent. No evidence for intraluminal filling defects or obstructing mass lesions near the ampulla. No peripancreatic inflamm atory changes. Overall homogeneous pancreatic enhancement. No adrenal nodules. Kidneys demonstrate normal size and enhancement, without hydronephrosis. Redemonstration of large bilateral renal cysts. Left renal cyst is larger than the right. Peritoneum and bowel: Bowel loops demonstrate normal wall thickness and caliber. No free fluid or a ir. Moderate fecal burden seen throughout the colon. Nodes and vessels: No retroperitoneal or mesenteric adenopathy by size criteria. Aorta and inferior vena cava are normal in size. Scattered atherosclerotic calcifications of the abdominal aorta witho ut aneurysmal dilatation. Miscellaneous: No ventral hernias. PELVIS: Genitourinary: Bladder wall thickness is normal. Miscellaneous: No inguinal hernias or adenopathy. Bones: No suspicious bony lesions. No acute vertebral body compression fractures. Stable appearanc e of multilevel posterior spinal fusion of the imaged thoracic and lumbar spine. Most inferior fused level is noted at L4. IMPRESSION: 1. Slightly increased prominence of diffuse intrahepatic ductal dilatation and dilatation of the comm on bile duct. This may be related to prior cholecystectomy; however, it appears more than expected. N o obstructing mass or intraluminal filling defect near the ampulla. Consider further evaluation with nonemergent MRI of the abdomen to include MRCP sequences. There are clinical and laboratory findings for biliary obstruction. 2. Findings compatible with sequela of chronic pancreatitis. No evidence for acute pancreatitis today 's study. 3. Large bilateral renal cysts. No hydronephrosis seen. 4. Atherosclerosis. 5. Stable alignment of posterior spinal fusion of the thoracolumbar spine terminating at the level of L4. 6. Moderate fecal burden seen throughout the imaged colon. No evidence for obstruction. Reviewed by: Les Ferrari MD on 06/05/2021 7:59 PM PDT Approved by: Les Ferrari MD on 06/05/2021 7:59 PM PDT Station ID: [id number]
[2021-06-05] MEDS ORDERED: oxyCODONE 5 MG TABLET PO STA (20:23)
[2021-06-05 20:41] VITALS: BP 144/85
== END 2021-06-05 20:40 | disposition home or self-care (01) ==
LOC: ED 14:39
DX: R10.84 Generalized abdominal pain (principal); R11.2 Nausea with vomiting, unspecified; Z87.891 Personal history of nicotine dependence
CPT/HCPCS: 36415; 74177; 80053; 80306; 81003; 83690; 85025; 96372; 96374; 96375; 99284; 99285; A9270; G0480; Q9967; 80320; 81001; 87086

== ENCOUNTER 2021-08-16 08:24 | Outpatient (CLI) | payer MEDICARE, MEDICAID | END 2021-08-16 08:25 | disposition critical access hospital (66) | LOC: EMS 08:24 | DX: R10.9 Unspecified abdominal pain (principal) | CPT/HCPCS: A0425; A0429 ==

== ENCOUNTER 2021-08-16 08:46 | Emergency (ER) | payer MEDICARE, MEDICAID ==
[2021-08-16] MEDS ORDERED: SODIUM CHLORIDE 0.9% 1,000 ML IV STA (08:53)
[2021-08-16] MEDS ORDERED: HYDROmorphone 0.5 MG/0.5 ML SYRINGE IVP STA (08:53)
[2021-08-16 09:41] LABS: BASOPHILS # (AUTO) 0.1 10^3/uL (0.0-0.1); BASOPHILS % (AUTO) 0.4 %; EOSINOPHILS % (AUTO) 0.2 %; HCT - HEMATOCRIT 40.1 % (37.0-47.0); HGB - HEMOGLOBIN 13.4 g/dL (12.0-16.0); LYMPHOCYTES % (AUTO) 7.3 %; MEAN CORPUSCULAR HEMOGLOBIN 32.4 pg (27.0-31.0); MEAN CORPUSCULAR HGB CONC 33.4 g/dL (32.0-36.0); MEAN CORPUSCULAR VOLUME 96.9 fL (81.0-99.0); MEAN PLATELET VOLUME 8.1 fL (7.9-10.8); MONOCYTES # (AUTO) 0.4 10^3/uL (0.0-1.0); MONOCYTES % (AUTO) 3.3 %; NEUTROPHILS # (AUTO) 11.5 10^3/uL (1.5-6.6); PLT - PLATELET COUNT 420 10^3/uL (130-450); RED BLOOD COUNT 4.14 10^6/uL (4.20-5.40); RED CELL DISTRIBUTION WIDTH 14.8 % (12.0-15.0); WHITE BLOOD COUNT 13.1 x10^3/uL (4.8-10.8)
[2021-08-16 09:55] LABS: ALBUMIN/GLOBULIN RATIO 1.1 (1.0-2.2); BILIRUBIN,TOTAL 0.9 mg/dL (0.2-1.0); CALCIUM 9.8 mg/dL (8.5-10.3); CREATININE 0.6 mg/dL (0.4-1.0); POTASSIUM 4.2 mmol/L (3.5-5.0); TOTAL PROTEIN 7.5 g/dL (6.7-8.2)
[2021-08-16] MEDS ORDERED: HYDROmorphone 1 MG/ML CARPUJECT IVP STA (10:03)
[2021-08-16] MEDS ORDERED: IOVERSOL 320 100 ML VIAL IVP ONE ×2 (10:11→14:11)
--- NOTE | 2021-08-16 11:03 | CT Report ---
PROCEDURE: Abdomen/Pelvis W INDICATIONS: RUQ abd pn post-op CONTRAST: IV CONTRAST: Optiray 320 ml: 100 PO CONTRAST: *NO PO CONTRAST TECHNIQUE: After the administration of IV contrast, 5 mm thick sections acquired from the diaphragms to the symp hysis. 5 mm thick coronal and sagittal reformats were acquired. For radiation dose reduction, the f ollowing was used: automated exposure control, adjustment of mA and/or kV according to patient size. COMPARISON: CT abdomen pelvis dated 06/05/2021 FINDINGS: ABDOMEN: Lung bases: Scattered subsegmental scarring/atelectasis. No acute consolidation. Heart:Normal in size. No pericardial effusion. Scattered coronary artery calcifications. Liver: There is marked pneumobilia. Gallbladder: Surgically absent. Bile ducts: Internal stents seen within the pancreatic duct as well as the common bile duct. There is possible viscous debris present within the intrahepatic bile ducts, for example image 15/6. Pancreas: Atrophic otherwise unremarkable Spleen: Normal. Adrenals: Normal. Kidneys and ureters: Large bilateral simple appearing cysts measuring up to 7.7 cm on the left and 4. 5 cm on the right. Stomach and duodenum: Normal. Bowel: Large amount of stool is present. No definite transition point to suggest bowel obstruction. Other: No free fluid or air. No definite abscess identified although suboptimal evaluation given the paucity of intra-abdominal fat. Abdominal nodes: Normal. Aorta: Normal in size. Scattered atheromatous calcifications seen in the aorta. IVC: Normal. Ventral wall: Normal. PELVIS: Bladder: Distended otherwise unremarkable Pelvic nodes: Normal. Inguinal: No hernia. Bones: No vertebral body compression fracture. No suspicious bone lesion. Diffuse osteopenia and exte nsive thoracolumbar spinal fixation hardware. Posterior decompression also noted. IMPRESSION: Postsurgical changes, with multiple internal biliary stents seen within the common bile duct and panc reatic duct. Thickened, viscus debris seen within the intrahepatic bile ducts. Extensive pneumobilia. Overall dilated appearance of the pancreatic, intra and extra hepatic bile jonathan ts appears improved since 06/05/2021. Status post cholecystectomy Additional chronic and incidental findings as above. Reviewed by: Octavio Wisdom MD on 08/16/2021 11:02 AM PDT Approved by: Octavio Wisdom MD on 08/16/2021 11:02 AM PDT Station ID: [id number]
[2021-08-16 12:28] VITALS: BP 119/69
--- NOTE | 2021-08-16 14:09 | ED Physician Documentation ---
PD HPI ABD PAIN - Stated complaint Stated Complaint: ABD PX - Chief complaint Chief Complaint: Abd Pain - History obtained from History obtained from: Patient - Additional information Additional information: PT comes to the ED for CC of RUQ abd pain that started when she woke up this morning. Pt was just discharged 3 days ago after an extended stay at , after developing a pancreatic duct stone, complicated by a stricture of the CBD. She had already had a cholecystectomy. Stents were placed in the ducts 2 weeks ago, and pt states she was doing fine. She is not sure what triggered the pain. She states she was more active yesterday, and also, ran out of her pain medication. Pt has had nausea, but no vomiting. No diarrhea. Pt is passing stool and gas. No dysuria. No fevers or jaundice. Review of Systems Ten Systems: 10 systems reviewed and negative Constitutional: reports: Reviewed and negative Eyes: reports: Reviewed and negative Ears: reports: Reviewed and negative Nose: reports: Reviewed and negative Throat: reports: Reviewed and negative Cardiac: reports: Reviewed and negative Respiratory: reports: Reviewed and negative GI: reports: Abdominal Pain, Nausea : reports: Reviewed and negative Skin: reports: Reviewed and negative Musculoskeletal: reports: Reviewed and negative Neurologic: reports: Reviewed and negative Psychiatric: reports: Reviewed and negative Endocrine: reports: Reviewed and negative Immunocompromised: reports: Reviewed and negative PD PAST MEDICAL HISTORY - Past Medical History Cardiovascular: None Respiratory: None Neuro: None, Other Endocrine/Autoimmune: None 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 : None HEENT: None Psych: Depression, Anxiety Musculoskeletal: Osteoarthritis, Fibromyalgia, Chronic back pain Derm: None - Past Surgical History Past Surgical History: Yes General: Cholecystectomy, Bowel surgery Ortho: Spine surgery /STILL OPERATOR HELPER: Hysterectomy - Present Medications Home Medications: Ambulatory Orders Medication Instructions Recorded Confirmed Cyclobenzaprine HCl 10 mg PO TID PRN 03/12/20 06/09/21 Ondansetron [Ondansetron Odt] 4 mg PO DAILY PRN 03/12/20 06/09/21 Trazodone HCl 50 mg PO QPM PRN 03/12/20 06/09/21 buprenorphine HCL [Buprenorphine 24 mg SL DAILY 08/04/20 06/09/21 HCl] Acetaminophen [Tylenol] 1,000 mg PO TID tablet 08/12/20 06/09/21 DULoxetine [Cymbalta] 20 mg PO DAILY capsule 08/12/20 06/09/21 Pantoprazole [Protonix] 40 mg PO QDAC tablet 08/12/20 06/09/21 Ondansetron Odt [Zofran] 4 mg TL Q6H PRN #10 tablet 06/05/21 06/09/21 HYDROcod/ACETAM 5/325 [[place] 5/325] 1 - 2 tablet PO Q6H PRN #14 tablet 08/16/21 - Allergies Allergies/Adverse Reactions: Allergies Allergy/AdvReac Type Severity Reaction Status Date / Time aspirin AdvReac Nausea Verified 08/16/21 09:02 NSAIDS (Non-Steroidal AdvReac Nausea Verified 08/16/21 09:02 Anti-Inflamma - Social History Does the pt smoke?: No Smoking Status: Never smoker Does the pt drink ETOH?: Yes Does the pt have substance abuse?: Yes - Immunizations Immunizations are current?: Yes Immunizations: TDAP >10years/unknown, Other immun current - POLST Patient has POLST: No POLST Status: Full Code PD ED PE NORMAL - Vitals Vital signs reviewed: Yes - General General: Alert and oriented X 3, No acute distress, Well developed/nourished - HEENT HEENT: Atraumatic, PERRL, EOMI, Moist mucous membranes - Neck Neck: Supple, no meningeal sign - Cardiac Cardiac: RRR, No murmur, Strong equal pulses - Respiratory Respiratory: No respiratory distress, Clear bilaterally - Abdomen Abdomen: Soft, Non distended, Other (moderate tenderness, RUQ, no RB/guarding) - Derm Derm: Normal color, Warm and dry, No rash - Extremities Extremities: No deformity, No edema - Neuro Neuro: Alert and oriented X 3, 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, Normal speech - Psych Psych: Normal mood, Normal affect Results - Vitals Vitals: Oxygen O2 Source [With Activity] Nasal cannula O2 Source [Without Activity] Nasal cannula O2 Source Room air - Labs Labs: Laboratory Tests 08/16/21 08/16/21 08/16/21 09:35 09:35 13:15 WBC 13.1 H RBC 4.14 L Hgb 13.4 Hct 40.1 MCV 96.9 MCH 32.4 H MCHC 33.4 RDW 14.8 Plt Count 420 MPV 8.1 Neut # (Auto) 11.5 H Lymph # (Auto) 1.0 L [place] # (Auto) 0.4 Eos # (Auto) 0.0 Baso # (Auto) 0.1 Absolute Nucleated RBC 0.00 Nucleated RBC % 0.0 Sodium 132 L Potassium 4.2 Chloride 96 L Carbon Dioxide 26 Anion Gap 10.0 BUN 20 Creatinine 0.6 Estimated GFR (MDRD) 100 Glucose 196 H Lactic Acid 1.3 Calcium 9.8 Total Bilirubin 0.9 AST 17 ALT 56 Alkaline Phosphatase 169 H Total Protein 7.5 Albumin 4.0 Globulin 3.5 Albumin/Globulin Ratio 1.1 Lipase 37 - Rads (name of study) CT abd/pelvis Radiology: Final report received, EMP read indepedently, See rad report (improved ductal appearance; marked pneumobilia) PD MEDICAL DECISION MAKING - ED course Complexity details: reviewed old records, reviewed results, re-evaluated patient, considered differential, d/w patient, d/w professional services consultant ED course: The pt was worked up with labs, which were unremarkable, except for a mild leukocytosis. Lactate and lipase were normal. CT abd/pelvis, showed improvement in the pancreatic duct since last CT here, but significant pneumobilia. The pt had been treated with Dilaudid with symptomatic relief, but I was not sure whether the pneumobilia was appropriate this long after the surgery. As such, I spoke with Dr. Armenta, the surgeon at who performed the pt's surgery. He stated that actually, the presence of pneumobilia is good, and if absent, is more concerning. He stated that the pt should have a 6-week post- op follow-up coming up in about a month, and she can continue to plan on that appointment. I have discussed all of the above with the pt. At Dr. Armenta's request, I have reminded the pt that she needs to stop smoking, or stones will f orm again. We have discussed the usual indications for return. Departure - Departure Disposition: 01 Home, Self Care Clinical Impression: Post-op pain Abdominal pain Qualifiers: Abdominal location: right upper quadrant Qualified Code(s): R10.11 - Right upper quadrant pain Condition: Stable Instructions: ED Post Op Pain Prescriptions: HYDROcod/ACETAM 5/325 [[place] 5/325] 1 - 2 tablet PO Q6H PRN #14 tablet PRN Reason: Pain Comments: Your labs look good. Your case has been discussed with Dr. Armenta at [facility], who did your surgery. He has said that the findings on your CT scan actually are good, and indicate that your stents are working properly. He has asked that we remind you that it is very important to work on quitting smoking, as you will be prone to forming more stones if you continue to smoke. Please plan to keep your follow-up appointment with the surgeons at [facility], as scheduled. Take the pain medication as needed. Your pain medication has been electronically transmitted to [facility] in [place]. Discharge Date/Time: 08/16/21 14:52
[2021-08-16] MEDS ORDERED: HYDROcod/ACETAM 5/325 MG TABLET PO STA (14:42)
== END 2021-08-16 14:52 | disposition home or self-care (01) ==
LOC: EDUNIT# → ED 08:46
DX: G89.18 Other acute postprocedural pain (principal); R10.11 Right upper quadrant pain; Z98.890 Other specified postprocedural states; Z90.49 Acquired absence of other specified parts of digestive tract
CPT/HCPCS: 36415; 74177; 80053; 83605; 83690; 85025; 96361; 96374; 96376; 99284; A9270; J1170; Q9967

== ENCOUNTER 2021-09-18 08:00 | Outpatient (CLI) | payer MEDICARE, MEDICAID ==
[2021-09-18 12:37] LABS: BASOPHILS # (AUTO) 0.1 10^3/uL (0.0-0.1); BASOPHILS % (AUTO) 0.7 %; EOSINOPHILS # (AUTO) 0.2 10^3/uL (0.0-0.7); EOSINOPHILS % (AUTO) 1.4 %; HCT - HEMATOCRIT 40.6 % (37.0-47.0); HGB - HEMOGLOBIN 13.5 g/dL (12.0-16.0); LYMPHOCYTES # (AUTO) 1.7 10^3/uL (1.5-3.5); MEAN CORPUSCULAR HEMOGLOBIN 33.1 pg (27.0-31.0); MEAN CORPUSCULAR HGB CONC 33.3 g/dL (32.0-36.0); MEAN CORPUSCULAR VOLUME 99.5 fL (81.0-99.0); MONOCYTES # (AUTO) 0.8 10^3/uL (0.0-1.0); MONOCYTES % (AUTO) 6.4 %; NEUTROPHILS # (AUTO) 10.2 10^3/uL (1.5-6.6); NEUTROPHILS % (AUTO) 78.1 %; PLT - PLATELET COUNT 369 10^3/uL (130-450); RED BLOOD COUNT 4.08 10^6/uL (4.20-5.40); RED CELL DISTRIBUTION WIDTH 14.6 % (12.0-15.0)
[2021-09-18 12:38] LABS: BILIRUBIN,URINE NEGATIVE (NEGATIVE); GLUCOSE, URINE (UA) NEGATIVE (NEGATIVE); KETONES,URINE (UA) NEGATIVE (NEGATIVE); LEUKOCYTE ESTERASE, URINE NEGATIVE (NEGATIVE); NITRITE,URINE NEGATIVE (NEGATIVE); OCCULT BLOOD,URINE NEGATIVE (NEGATIVE); PROTEIN,URINE NEGATIVE (NEGATIVE); UROBILINOGEN,URINE 0.2 (NORMAL) E.U./dL (NORMAL)
[2021-09-18 12:44] LABS: CLARITY,URINE CLEAR (CLEAR)
[2021-09-18 12:55] LABS: BACTERIA,URINE None Seen /HPF (None Seen); RBC,URINE 0-5 /HPF (0-5); SQUAMOUS EPITHELIAL CELL,UR RARE Squamous (<= Few); WBC,URINE 0-3 /HPF (0-5)
[2021-09-18 12:59] LABS: THYROID STIMULATING HORMONE 0.86 uIU/mL (0.34-5.60)
[2021-09-18 13:02] LABS: ALBUMIN 4.2 g/dL (3.2-5.5); ALBUMIN/GLOBULIN RATIO 1.3 (1.0-2.2); ALKALINE PHOSPHATASE 110 IU/L (42-121); ALT ALANINE AMINOTRANSFERASE 12 IU/L (10-60); AMYLASE 31 U/L (28-100); AST ASPARTATE AMINOTRANSFERASE 12 IU/L (10-42); BILIRUBIN,TOTAL 0.5 mg/dL (0.2-1.0); BUN - BLOOD UREA NITROGEN 19 mg/dL (6-20); CALCIUM 10.2 mg/dL (8.5-10.3); CARBON DIOXIDE - CO2 29 mmol/L (21-32); CHLORIDE 97 mmol/L (101-111); CHOL/HDL RATIO 3.3 (<4.4); CHOLESTEROL 153 mg/dL; CREATININE 0.6 mg/dL (0.4-1.0); GAMMA GLUTAMYL TRANSPEPTIDASE 45 IU/L (8-38); GFR - MDRD 100 (>89); GLUCOSE 122 mg/dL (70-100); HDL CHOLESTEROL 46 mg/dL; LDL CHOLESTEROL,CALCULATED 77 mg/dL; LDL/HDL RATIO 1.7 (<4.4); LIPASE 27 U/L (22-51); POTASSIUM 4.9 mmol/L (3.5-5.0); SODIUM 133 mmol/L (135-145); TOTAL PROTEIN 7.5 g/dL (6.7-8.2); TRIGLYCERIDES 150 mg/dL; VLDL CHOLESTEROL 30 mg/dL
== END 2021-09-18 23:59 | disposition home or self-care (01) ==
LOC: LAB.WCP 08:00
PROVIDERS: ATTEND Nurse Practitioner
DX: K86.1 Other chronic pancreatitis (principal); R63.4 Abnormal weight loss; F17.200 Nicotine dependence, unspecified, uncomplicated
CPT/HCPCS: 36415; 80053; 80061; 81001; 82150; 82977; 83690; 83721; 84443; 85025; 87086

== ENCOUNTER 2021-12-28 16:40 | Outpatient (CLI) | payer MEDICARE, MEDICAID, OTHER ==
--- NOTE | 2021-12-29 08:47 | XRAY Report ---
PROCEDURE: Abdomen 1 View X-Ray INDICATIONS: Possible passage of pancreatic stent TECHNIQUE: 1 view of the abdomen was acquired. COMPARISON: Reference is made to the CT abdomen dated August 16, 2021. FINDINGS: SUPPORT DEVICES: Bilateral spine hardware is again demonstrated. Right upper quadrant surgical clips, compatible cholecystectomy. The previously demonstrated pancreatic stent is not visualized. ABDOMEN: Nonobstructive bowel gas pattern. Moderate stool burden throughout the colon. BONES/SOFT TISSUES: No acute abnormality. IMPRESSION: 1.Nonvisualization of the patient's previously demonstrated pancreatic stent. Reviewed by: Fran Rodriguez MD on 12/29/2021 8:46 AM PST Approved by: Fran Rodriguez MD on 12/29/2021 8:46 AM PST Station ID: [id number]
== END 2021-12-28 16:41 | disposition home or self-care (01) ==
LOC: DI.N 16:40
PROVIDERS: ATTEND Internal Medicine
DX: K91.89 Other postprocedural complications and disorders of digestive system (principal)

== ENCOUNTER 2022-02-24 13:11 | Outpatient (CLI) | payer MEDICARE, MEDICAID, OTHER ==
--- NOTE | 2022-02-24 13:40 | XRAY Report ---
PROCEDURE: Chest 2 View X-Ray INDICATIONS: COUGH AND DYSPNEA TECHNIQUE: 2 view(s) of the chest. COMPARISON: 09/07/2020, 08/08/2020 FINDINGS: Surgical changes and devices: Extensive Corbin rods are seen. Cholecystectomy clips are seen. Lungs and pleura: No pleural effusions or pneumothorax. Lungs are clear. Mediastinum: Mediastinal contours are normal. Heart size is normal. Bones and chest wall: No suspicious bony abnormalities. Soft tissues appear unremarkable. IMPRESSION: Clear lungs, without infiltrates. No recurrent pneumothorax is identified. Extensive Corbin rods. Reviewed by: Lucas Davies MD on 02/24/2022 12:39 PM AKDT Approved by: Lucas Davies MD on 02/24/2022 12:39 PM AKDT Station ID: [id number]
== END 2022-02-24 13:12 | disposition home or self-care (01) ==
LOC: DI 13:11
PROVIDERS: ATTEND Internal Medicine
DX: R05.9 Cough, unspecified (principal); R06.00 Dyspnea, unspecified

== ENCOUNTER 2022-03-08 16:08 | Outpatient (CLI) | payer MEDICARE, MEDICAID, OTHER ==
[2022-03-08 16:39] LABS: BILIRUBIN,URINE NEGATIVE (NEGATIVE); GLUCOSE, URINE (UA) NEGATIVE (NEGATIVE); KETONES,URINE (UA) NEGATIVE (NEGATIVE); LEUKOCYTE ESTERASE, URINE MODERATE (NEGATIVE); NITRITE,URINE NEGATIVE (NEGATIVE); OCCULT BLOOD,URINE NEGATIVE (NEGATIVE); PH,URINE 6.5 PH (5.0-7.5); PROTEIN,URINE NEGATIVE (NEGATIVE); UROBILINOGEN,URINE 0.2 (NORMAL) E.U./dL (NORMAL)
[2022-03-08 16:54] LABS: CALCIUM 9.8 mg/dL (8.5-10.3); CREATININE 0.7 mg/dL (0.4-1.0); POTASSIUM 3.9 mmol/L (3.5-5.0)
[2022-03-08 16:57] LABS: BASOPHILS # (AUTO) 0.1 10^3/uL (0.0-0.1); BASOPHILS % (AUTO) 0.5 %; EOSINOPHILS # (AUTO) 0.2 10^3/uL (0.0-0.7); EOSINOPHILS % (AUTO) 1.8 %; HCT - HEMATOCRIT 40.8 % (37.0-47.0); HGB - HEMOGLOBIN 14.2 g/dL (12.0-16.0); LYMPHOCYTES # (AUTO) 3.5 10^3/uL (1.5-3.5); LYMPHOCYTES % (AUTO) 33.1 %; MEAN CORPUSCULAR HEMOGLOBIN 33.7 pg (27.0-31.0); MEAN CORPUSCULAR HGB CONC 34.8 g/dL (32.0-36.0); MEAN CORPUSCULAR VOLUME 96.9 fL (81.0-99.0); MEAN PLATELET VOLUME 8.2 fL (7.9-10.8); MONOCYTES # (AUTO) 0.9 10^3/uL (0.0-1.0); MONOCYTES % (AUTO) 8.2 %; NEUTROPHILS # (AUTO) 5.8 10^3/uL (1.5-6.6); PLT - PLATELET COUNT 358 10^3/uL (130-450); RED BLOOD COUNT 4.21 10^6/uL (4.20-5.40); RED CELL DISTRIBUTION WIDTH 13.2 % (12.0-15.0); WHITE BLOOD COUNT 10.4 x10^3/uL (4.8-10.8)
[2022-03-08 17:34] LABS: CLARITY,URINE CLEAR (CLEAR)
[2022-03-08 17:35] LABS: BACTERIA,URINE Few /HPF (None Seen); RBC,URINE 0-5 /HPF (0-5); SQUAMOUS EPITHELIAL CELL,UR MANY Squamous (<= Few); WBC,URINE >25 /HPF (0-5)
== END 2022-03-08 16:09 | disposition home or self-care (01) ==
LOC: LAB 16:08
PROVIDERS: ATTEND Internal Medicine
DX: M54.9 Dorsalgia, unspecified (principal); R68.83 Chills (without fever); R06.09 Other forms of dyspnea; R53.83 Other fatigue; R10.12 Left upper quadrant pain; R11.2 Nausea with vomiting, unspecified
CPT/HCPCS: 36415; 80048; 81001; 82150; 83690; 85025; 87086

== ENCOUNTER 2022-05-23 08:00 | Outpatient (CLI) | payer MEDICARE ==
[2022-05-23 16:26] LABS: BILIRUBIN,URINE NEGATIVE (NEGATIVE); GLUCOSE, URINE (UA) NEGATIVE (NEGATIVE); KETONES,URINE (UA) NEGATIVE (NEGATIVE); LEUKOCYTE ESTERASE, URINE NEGATIVE (NEGATIVE); NITRITE,URINE NEGATIVE (NEGATIVE); OCCULT BLOOD,URINE NEGATIVE (NEGATIVE); PROTEIN,URINE NEGATIVE (NEGATIVE); UROBILINOGEN,URINE 0.2 (NORMAL) E.U./dL (NORMAL)
[2022-05-23 16:28] LABS: CLARITY,URINE CLOUDY (CLEAR)
[2022-05-23 16:42] LABS: BACTERIA,URINE Rare /HPF (None Seen); RBC,URINE None Seen /HPF (0-5); SQUAMOUS EPITHELIAL CELL,UR RARE Squamous (<= Few); WBC,URINE 0-3 /HPF (0-5)
[2022-05-23 16:43] LABS: AMORPHOUS SEDIMENT,UR Moderate /LPF
== END 2022-05-23 23:59 | disposition home or self-care (01) ==
LOC: LAB 08:00
PROVIDERS: ATTEND Internal Medicine
DX: M54.9 Dorsalgia, unspecified (principal); R63.0 Anorexia; R05.3 Chronic cough; I87.2 Venous insufficiency (chronic) (peripheral); H93.90 Unspecified disorder of ear, unspecified ear; H61.20 Impacted cerumen, unspecified ear; R11.0 Nausea; R39.9 Unspecified symptoms and signs involving the genitourinary system
CPT/HCPCS: 81001; 87086

== ENCOUNTER 2022-06-10 18:05 | Outpatient (CLI) | payer MEDICARE, MEDICAID | END 2022-06-10 18:06 | disposition critical access hospital (66) | LOC: EMS 18:05 | DX: R07.9 Chest pain, unspecified (principal); R10.812 Left upper quadrant abdominal tenderness; R10.811 Right upper quadrant abdominal tenderness | CPT/HCPCS: A0425; A0427 ==

== ENCOUNTER 2022-06-10 18:26 | Emergency (ER) | payer MEDICARE, MEDICAID ==
--- NOTE | 2022-06-10 19:13 | ED Physician Documentation ---
PD HPI CHEST PAIN - Stated complaint Stated Complaint: CP - Chief complaint Chief Complaint: Cardiac - History obtained from History obtained from: Patient - History of Present Illness Timing - onset during: Rest - Additional information Additional information: Patient is a 67-year-old female who presents to the emergency department with chest pain. She states that it started about 2 hours prior to arrival. Lasted for about 20 minutes. She states it radiated to her neck. Also to the right side of her chest. Nothing made it better or worse. She states felt similar to her episodes of pancreatitis. She states she has chronic pancreatitis. She does use marijuana daily as well as cigarettes. Denies any alcohol use today. Review of Systems Ten Systems: 10 systems reviewed and negative Constitutional: denies: Fever, Chills Ears: denies: Ear pain, Drainage/discharge Nose: denies: Rhinorrhea / runny nose, Congestion Throat: denies: Sore throat Cardiac: denies: Palpitations, Calf pain Respiratory: denies: Dyspnea, Cough, Wheezing GI: denies: Abdominal Pain, Nausea, Vomiting, Diarrhea, Hematemesis, Bloody / black stool : denies: Dysuria Skin: denies: Rash Musculoskeletal: denies: Neck pain, Back pain Neurologic: denies: Headache PD PAST MEDICAL HISTORY - Past Medical History Cardiovascular: None Respiratory: None Neuro: None, Other Endocrine/Autoimmune: None 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 : None HEENT: None Psych: Depression, Anxiety Musculoskeletal: Osteoarthritis, Fibromyalgia, Chronic back pain Derm: None - Past Surgical History Past Surgical History: Yes General: Cholecystectomy, Bowel surgery Ortho: Spine surgery /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: Hysterectomy - Present Medications Home Medications: Ambulatory Orders Medication Instructions Recorded Confirmed Cyclobenzaprine HCl 10 mg PO TID PRN 03/12/20 06/09/21 Ondansetron [Ondansetron Odt] 4 mg PO DAILY PRN 03/12/20 06/09/21 Trazodone HCl 50 mg PO QPM PRN 03/12/20 06/09/21 buprenorphine HCL [Buprenorphine 24 mg SL DAILY 08/04/20 06/09/21 HCl] Acetaminophen [Tylenol] 1,000 mg PO TID tablet 08/12/20 06/09/21 DULoxetine [Cymbalta] 20 mg PO DAILY capsule 08/12/20 06/09/21 Pantoprazole [Protonix] 40 mg PO QDAC tablet 08/12/20 06/09/21 Ondansetron Odt [Zofran] 4 mg TL Q6H PRN #10 tablet 06/05/21 06/09/21 HYDROcod/ACETAM 5/325 [[place] 5/325] 1 - 2 tablet PO Q6H PRN #14 tablet 08/16/21 - Allergies Allergies/Adverse Reactions: Allergies Allergy/AdvReac Type Severity Reaction Status Date / Time aspirin AdvReac Nausea Verified 08/16/21 09:02 NSAIDS (Non-Steroidal AdvReac Nausea Verified 08/16/21 09:02 Anti-Inflamma - Social History Does the pt smoke?: No Smoking Status: Never smoker Does the pt drink ETOH?: No Does the pt have substance abuse?: Yes Substance Use and Type: Marijuana - Immunizations Immunizations are current?: Yes Immunizations: TDAP >10years/unknown, Other immun current - POLST Patient has POLST: No POLST Status: Full Code PD ED PE NORMAL - Vitals Vital signs reviewed: Yes - General General: Alert and oriented X 3, No acute distress - HEENT HEENT: PERRL, Moist mucous membranes - Neck Neck: Supple, no meningeal sign - Cardiac Cardiac: RRR, No murmur, Strong equal pulses - Respiratory Respiratory: No respiratory distress, Clear bilaterally - Abdomen Abdomen: Normal bowel sounds, Soft, Non tender, Non distended - Derm Derm: Warm and dry - Extremities Extremities: No edema, No calf tenderness / cord - Neuro Neuro: Alert and oriented X 3 - Psych Psych: Normal mood, Normal affect Results - Vitals Vitals: Vital Signs - 24 hr 06/10/22 06/10/22 18:37 21:11 Temperature 36.7 C Heart Rate 82 79 Respiratory 13 13 Rate Blood Pressure 121/78 136/83 H O2 Saturation 95 96 Oxygen O2 Source [] Nasal cannula O2 Source [] Nasal cannula O2 Source Room air - EKG (time done) 1834 Rate: Rate (enter#) (79) Rhythm: NSR Point Lay: Normal Intervals: Normal NE QRS: Normal Ischemia: Normal ST segments - Labs Labs: Laboratory Tests 06/10/22 06/10/22 06/10/22 19:21 19:21 19:21 WBC 9.0 RBC 3.74 L Hgb 12.7 Hct 36.1 L MCV 96.5 MCH 34.0 H MCHC 35.2 RDW 12.3 Plt Count 280 MPV 8.3 Neut # (Auto) 5.8 Lymph # (Auto) 2.2 [place] # (Auto) 0.7 Eos # (Auto) 0.2 Baso # (Auto) 0.0 Absolute Nucleated RBC 0.00 Nucleated RBC % 0.0 Sodium 139 Potassium 4.0 Chloride 106 Carbon Dioxide 26 Anion Gap 7.0 BUN 12 Creatinine 0.6 Estimated GFR (MDRD) 100 Glucose 123 H Calcium 9.7 Total Bilirubin 0.3 AST 16 ALT 14 Alkaline Phosphatase 73 Troponin I High Sens 2.8 Total Protein 6.2 L Albumin 3.6 Globulin 2.6 Albumin/Globulin Ratio 1.4 Lipase 22 06/10/22 20:21 WBC RBC Hgb Hct MCV MCH MCHC RDW Plt Count MPV Neut # (Auto) Lymph # (Auto) [place] # (Auto) Eos # (Auto) Baso # (Auto) Absolute Nucleated RBC Nucleated RBC % Sodium Potassium Chloride Carbon Dioxide Anion Gap BUN Creatinine Estimated GFR (MDRD) Glucose Calcium Total Bilirubin AST ALT Alkaline Phosphatase Troponin I High Sens 2.3 Total Protein Albumin Globulin Albumin/Globulin Ratio Lipase - Rads (name of study) Chest x-ray Radiology: Final report received, EMP read contemporaneously, See rad report PD MEDICAL DECISION MAKING - ED course Complexity details: reviewed results, re-evaluated patient, considered differential (No ST elevation SC, no aortic dissection, no PE, no tension pneumothorax, no aortic aneurysm), d/w patient ED course: Patient is well-appearing, nontoxic. Afebrile. No recent illnesses. She is a chronic smoker. No acute findings on EKG or laboratory testing. Patient counseled regarding signs and symptoms for which I believe and urgent re- evaluation would be necessary. Patient with good understanding of and agreement to plan and is comfortable going home at this time This document was made in part using voice recognition software. While efforts are made to proofread this document, sound alike and grammatical errors may occur. IMPRESSION: 1. Bilateral perihilar bronchial wall thickening and infrahilar opacities. Findings suggestive of acute or chronic bronchitis and potentially infrahilar pneumonitis. Correlate clinically. 2. No pneumothorax. Departure - Departure Disposition: 01 Home, Self Care Clinical Impression: Chest pain Qualifiers: Chest pain type: unspecified Qualified Code(s): R07.9 - Chest pain, unspecified Condition: Good Instructions: ED Chest Pain Atypical Unkn Cause Follow-Up: Kavita Marshall MD [Primary Care Provider] - Within 3 Days Comments: Your EKG, chest x-ray and laboratory testing did not show any acute abnormalities today. Please follow-up with your doctor this week for a cardiac stress test and further care. Return if you worsen. Continue your current medications at home. Discharge Date/Time: 06/10/22 21:11
--- NOTE | 2022-06-10 19:24 | XRAY Report ---
PROCEDURE: Chest 1 View X-Ray INDICATIONS: Chest Pain TECHNIQUE: One view of the chest was acquired. COMPARISON: 02/17/2022 FINDINGS: Surgical changes and devices: Thoracolumbar posterior fusion hardware is intact. Cholecystectomy clip s. Lungs and pleura: Asymmetric left hemidiaphragm elevation. Bilateral perihilar bronchial wall thicken ing and probable small bilateral effusions. Increased bronchial wall thickening in the infrahilar reg ions bilaterally No pneumothorax. Mediastinum: Mediastinal contours appear normal. Heart size is normal. Bones and chest wall: No suspicious bony lesions. Overlying soft tissues appear unremarkable. IMPRESSION: 1. Bilateral perihilar bronchial wall thickening and infrahilar opacities. Findings suggestive of acu te or chronic bronchitis and potentially infrahilar pneumonitis. Correlate clinically. 2. No pneumothorax. Reviewed by: Emma Pryor MD on 06/10/2022 7:23 PM PDT Approved by: Emma Pryor MD on 06/10/2022 7:23 PM PDT Station ID: [id number]
[2022-06-10 19:27] LABS: BASOPHILS % (AUTO) 0.4 %; EOSINOPHILS # (AUTO) 0.2 10^3/uL (0.0-0.7); HCT - HEMATOCRIT 36.1 % (37.0-47.0); HGB - HEMOGLOBIN 12.7 g/dL (12.0-16.0); LYMPHOCYTES # (AUTO) 2.2 10^3/uL (1.5-3.5); LYMPHOCYTES % (AUTO) 24.7 %; MEAN CORPUSCULAR HGB CONC 35.2 g/dL (32.0-36.0); MEAN CORPUSCULAR VOLUME 96.5 fL (81.0-99.0); MEAN PLATELET VOLUME 8.3 fL (7.9-10.8); MONOCYTES # (AUTO) 0.7 10^3/uL (0.0-1.0); NEUTROPHILS # (AUTO) 5.8 10^3/uL (1.5-6.6); NEUTROPHILS % (AUTO) 64.8 %; PLT - PLATELET COUNT 280 10^3/uL (130-450); RED BLOOD COUNT 3.74 10^6/uL (4.20-5.40); RED CELL DISTRIBUTION WIDTH 12.3 % (12.0-15.0)
[2022-06-10] MEDS ORDERED: BUPRENORPHINE 0.3 MG/ML VIAL IVP STA (19:41)
[2022-06-10 19:46] LABS: ALBUMIN 3.6 g/dL (3.2-5.5); ALBUMIN/GLOBULIN RATIO 1.4 (1.0-2.2); BILIRUBIN,TOTAL 0.3 mg/dL (0.2-1.0); CALCIUM 9.7 mg/dL (8.5-10.3); CREATININE 0.6 mg/dL (0.4-1.0); TOTAL PROTEIN 6.2 g/dL (6.7-8.2)
[2022-06-10 21:11] VITALS: BP 136/83
== END 2022-06-10 21:11 | disposition home or self-care (01) ==
LOC: EDUNIT# → ED 18:26
DX: R07.9 Chest pain, unspecified (principal); F17.200 Nicotine dependence, unspecified, uncomplicated
CPT/HCPCS: 36415; 71045; 80053; 83690; 84484; 85025; 93005; 96374; 99283; 99284; J0592

== ENCOUNTER 2022-10-08 10:50 | Outpatient (CLI) | payer MEDICARE, MEDICAID ==
--- NOTE | 2022-10-08 16:06 | XRAY Report ---
PROCEDURE: Chest 2 View X-Ray INDICATIONS: COUGH TECHNIQUE: 2 views of the chest were acquired. COMPARISON: Single view the chest dated 06/10/2022. FINDINGS: Surgical changes and devices: None. Lungs and pleura: No pleural effusions or pneumothorax. Lungs are clear. Mediastinum: Mediastinal contours are normal. Heart size is normal. Bones and chest wall: Extensive posterior fixation redemonstrated. No hardware fracture. No suspiciou s bony abnormalities. Soft tissues appear unremarkable. IMPRESSION: No acute cardiopulmonary findings. Reviewed by: Suzette Davidson MD on 10/08/2022 4:04 PM PST Approved by: Suzette Davidson MD on 10/08/2022 4:04 PM PST Station ID: [id number]
--- NOTE | 2022-10-08 16:07 | XRAY Report ---
PROCEDURE: Thoracic Spine 2 View INDICATIONS: THORACIC BACK PX TECHNIQUE: 2 views of the thoracic spine were acquired. COMPARISON: 2 views of the thoracic spine dated 12/29/2020 FINDINGS: Bones: Extensive posterior fixation is visualized throughout the thoracolumbar spine. No hardware fr acture. No fractures or dislocations. No suspicious bony lesions. 12 pairs of ribs are noted, and a ppear intact where visualized. Soft tissues: No paravertebral stripe thickening. IMPRESSION: Stable postoperative change. No new compression deformities. Reviewed by: Suzette Davidson MD on 10/08/2022 4:05 PM PST Approved by: Suzette Davidson MD on 10/08/2022 4:05 PM PST Station ID: [id number]
== END 2022-10-08 10:51 | disposition home or self-care (01) ==
LOC: DI.N 10:50
PROVIDERS: ATTEND Internal Medicine
DX: R05.9 Cough, unspecified (principal); M54.6 Pain in thoracic spine; Z98.1 Arthrodesis status

== ENCOUNTER 2023-01-07 10:53 | Outpatient (CLI) | payer OTHER ==
--- NOTE | 2023-01-08 11:06 | Mammography Report ---
BILATERAL DIGITAL DIAGNOSTIC MAMMOGRAM 3D/2D: 01/07/2023 CLINICAL: Palpable left breast lump. Due for bilateral. Comparison is made to exam dated: 09/28/2014 mammogram - [facility]. Both breasts are almost entirely fatty (category a/<25% glandular tissue). There is a 2.1 cm x 1.6 cm oval asymmetry with grouped punctate calcifications in the left breast mid dle depth lateral region seen on the craniocaudal view only 4.6 cm from the nipple. There also is a 0.7 cm round asymmetry in the left breast posterior depth lateral region seen on the craniocaudal view only 7 cm from the skin. No other significant masses, calcifications, or other findings are seen in either breast. IMPRESSION: INCOMPLETE: NEEDS ADDITIONAL IMAGING EVALUATION The 2.1 cm x 1.6 cm oval asymmetry in the left breast middle depth lateral region seen on the cranioc audal view only is indeterminate. An ultrasound is recommended. The 0.7 cm round asymmetry in the left breast posterior depth lateral region seen on the craniocaudal view only is indeterminate. An ultrasound is recommended. Based on the Tyrer Cuzick model (a risk assessment model) the patients lifetime risk is 3.5% and her 10 year risk is 1.7%. According to the ACR, ACS, and NCCN guidelines, an annual breast MRI exam stiven g with mammogram is recommended if the patients lifetime risk is 20% or greater. This exam was interpreted at Station ID: [id number]. NOTE: For mammograms, a report in lay terms will be sent to the patient. Approximately 15% of breast malignancies will not be visualized mammographically. In the management of a palpable breast mass, a negative mammogram must not discourage biopsy of a clinically suspicious lesion. Electronically Signed By: Tyrone Reynoso M.D. acr/:01/07/2023 15:21:29 ACR BI-RADS Category 0: Incomplete 3340F PARENCHYMAL PATTERN: (F) - The breast(s) demonstrate(s) diffuse fatty replacement. BI-RADS CATEGORY: (0) - 0 Ultrasound [id number] Immediate follow-up LATERALITY: (L)
--- NOTE | 2023-01-08 11:06 | Ultrasound Report ---
LIMITED ULTRASOUND OF LEFT BREAST: 01/07/2023 CLINICAL: Palpable left breast lump. Comparison is made to exam dated: 09/28/2014 mammogram - [facility]. Color flow and real-time ultrasound of the left breast 2-3 o'clock region were performed. Moralez scal e images of the real-time examination were reviewed. There is a 1.9 cm x 1.6 cm oval complicated cyst with a thickened wall in the left breast at 4 o'cloc k middle depth 2 cm from the nipple. This oval complicated cyst displays posterior acoustic enhancem ent. There also is a 0.7 cm oval mass with a circumscribed margin in the left breast at 3 o'clock posterio r depth 7 cm from the skin. This oval mass is hypoechoic with posterior acoustic enhancement. IMPRESSION: PROBABLY BENIGN The 1.9 cm x 1.6 cm oval complicated cyst in the left breast at 4 o'clock middle depth is consistent with complex cysts and is probably benign. A follow-up ultrasound in 6 months is recommended. The 0.7 cm oval mass in the left breast at 3 o'clock posterior depth is consistent with a complex cys t or a fibroadenoma and is probably benign. A follow-up ultrasound in 6 months is recommended. A follow-up ultrasound in 6 months is recommended to demonstrate stability. This exam was interpreted at Station ID: [id number]. Electronically Signed By: Tyrone Reynoso M.D. acr/:01/07/2023 15:49:37 Ultrasound BI-RADS: 3 Probably benign BI-RADS CATEGORY: (3) - 3 Ultrasound [id number] 6 month follow-up LATERALITY: (B)
== END 2023-01-07 10:54 | disposition home or self-care (01) ==
LOC: DI 10:53
PROVIDERS: ATTEND Internal Medicine
DX: N60.12 Diffuse cystic mastopathy of left breast (principal)

== ENCOUNTER 2023-01-31 11:01 | Outpatient (CLI) | payer OTHER ==
[2023-01-31 12:10] LABS: ESTIMATED AVERAGE GLUCOSE 123 mg/dL (70-100); HEMOGLOBIN A1c% 5.9 % (4.27-6.07)
--- NOTE | 2023-01-31 12:18 | XRAY Report ---
PROCEDURE: Shoulder 3 View LT INDICATIONS: SHOULDER X-RAY TECHNIQUE: 3 views of the shoulder were acquired. COMPARISON: None. FINDINGS: Bones: No fractures or dislocations. No suspicious bony lesions. Visualized ribs appear intact. M ild narrowing of the subacromial space. Soft tissues: No suspicious soft tissue calcifications. IMPRESSION: Mild narrowing of the subacromial space, which may indicate chronic rotator cuff injury. Reviewed by: Robb Almaguer on 01/31/2023 12:17 PM PDT Approved by: Robb Almaguer on 01/31/2023 12:17 PM PDT Station ID: [id number]
== END 2023-01-31 11:02 | disposition home or self-care (01) ==
LOC: DI 11:01
PROVIDERS: ATTEND Internal Medicine
DX: M25.512 Pain in left shoulder (principal); R73.9 Hyperglycemia, unspecified
CPT/HCPCS: 36415; 83036

== ENCOUNTER 2023-04-03 12:49 | Outpatient (CLI) | payer OTHER | END 2023-04-03 12:50 | disposition home or self-care (01) | LOC: NS 12:49 | PROVIDERS: ATTEND Internal Medicine | DX: Z71.3 Dietary counseling and surveillance (principal); R63.4 Abnormal weight loss; Z68.1 Body mass index [BMI] 19.9 or less, adult | CPT/HCPCS: 97802 ==

== ENCOUNTER 2023-06-27 11:32 | Emergency (ER) | payer OTHER ==
[2023-06-27 11:43] VITALS: O2SAT 94
--- NOTE | 2023-06-27 11:55 | ED Physician Documentation ---
PD HPI BACK PAIN - Stated complaint Stated Complaint: UPPER BACK PX - Chief complaint Chief Complaint: Back Pain - History obtained from History obtained from: Patient - Additional information Additional information: 68-year-old woman with chronic pancreatitis, alcoholism in remission with about 5 years since her last drink presents with her sister for pain management for upper back pain. She has a remote fusion, she does not know what level and states that she was at [facility] a few days ago and diagnosed with fusion failure by CT. She has a PCP appointment tomorrow and is going to seek a referral to go down to [facility] for formal evaluation by credit card specialist and potentially revision but in the meantime needs pain medication. Pain is in the upper thoracic spine and radiates to both scapula and shoulders. She gets cramps in the armpits but denies weakness, numbness, or tingling of the upper or lower extremities, saddle anesthesia, incontinence, or fevers. 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: Hysterectomy - Present Medications Home Medications: Ambulatory Orders Medication Instructions Recorded Confirmed Cyclobenzaprine HCl 10 mg PO TID PRN 03/12/20 06/09/21 Ondansetron [Ondansetron Odt] 4 mg PO DAILY PRN 03/12/20 06/09/21 Trazodone HCl 50 mg PO QPM PRN 03/12/20 06/09/21 buprenorphine HCL [Buprenorphine 24 mg SL DAILY 08/04/20 06/09/21 HCl] Acetaminophen [Tylenol] 1,000 mg PO TID tablet 08/12/20 06/09/21 DULoxetine [Cymbalta] 20 mg PO DAILY capsule 08/12/20 06/09/21 Pantoprazole [Protonix] 40 mg PO QDAC tablet 08/12/20 06/09/21 Ondansetron Odt [Zofran] 4 mg TL Q6H PRN #10 tablet 06/05/21 06/09/21 HYDROcod/ACETAM 5/325 [[place] 5/325] 1 - 2 tablet PO Q6H PRN #14 tablet 08/16/21 Oxycodone HCl/Acetaminophen 1 - 2 each PO Q6H PRN #14 tablet 06/27/23 [Percocet 5-325 mg Tablet] - Allergies Allergies/Adverse Reactions: Allergies Allergy/AdvReac Type Severity Reaction Status Date / Time bupropion [From Wellbutrin] Allergy Anaphylaxis Verified 06/27/23 11:42 aspirin AdvReac Nausea Verified 08/16/21 09:02 NSAIDS (Non-Steroidal AdvReac Nausea Verified 08/16/21 09:02 Anti-Inflamma - Social History Does the pt smoke?: No Smoking Status: Never smoker Does the pt drink ETOH?: No Does the pt have substance abuse?: Yes - Immunizations Immunizations are current?: Yes Immunizations: TDAP >10years/unknown, Other immun current - POLST Patient has POLST: No POLST Status: Full Code PD ED PE NORMAL - Vitals Vital signs reviewed: Yes - General General: Alert and oriented X 3, No acute distress - Neck Neck: Supple, no meningeal sign, No bony TTP - Extremities Extremities: Other - Neuro Neuro: Alert and oriented X 3, Other (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, thumb extension, interosseous strength, and flexion extension of the wrist as well as sensation throughout the upper extremities.) Eye Opening: Spontaneous Motor: Obeys Commands Verbal: Oriented GCS Score: 15 Results - Vitals Vitals: Vital Signs - 24 hr 06/27/23 11:38 Temperature 36.4 C L Heart Rate 95 Respiratory 20 Rate Blood Pressure 175/148 H O2 Saturation 94 Oxygen O2 Source [With Activity] Nasal cannula O2 Source [Without Activity] Nasal cannula O2 Source Room air PD Medical Decision Making - ED course ED course: No indication for repeat imaging since she just had imaging a few days ago. She has an appropriate follow-up plan and other than uncontrolled pain there is no emergency medical condition identified. Departure - Departure Disposition: 01 Home, Self Care Clinical Impression: Back pain Qualifiers: Back pain location: thoracic back pain Chronicity: chronic Back pain laterality: bilateral Qualified Code(s): M54.6 - Pain in thoracic spine; G89.29 - Other chronic pain Condition: Good Record reviewed to determine appropriate education?: Yes Instructions: ED Neck Back Pain General Prescriptions: Oxycodone HCl/Acetaminophen [Percocet 5-325 mg Tablet] 1 - 2 each PO Q6H PRN #14 tablet PRN Reason: pain Comments: Follow-up with PCP tomorrow as scheduled. I sent your prescription electronically to the [facility] in [place]. Return for new or worsening symptoms. I am prescribing a short course of narcotic pain medication for you. These are potentially dangerous and addictive medications that should be used carefully. These medications may constipate you. Take an ehoa-[id number] stool softener (docusate) twice daily with plenty of water while taking these medications. If you go 24 hours without a bowel movement, take [id number] miralax, per package instructions. Do not drink or drive while taking these medications. If you received narcotic or sedating medications while in the emergency departm ent, do not drive for 24 hours. Store this medication in a safe, secure place and out of reach of children. It is a violation of federal law to give or sell this medication to another person or to use in a manner other than prescribed. The ED will not refill narcotic prescriptions, including prescriptions lost or stolen. To dispose of unwanted medications: 1. [facility] provides a drop box for medication in pill form only (no liquids) 8:00 am to 4:30 p.m. Saturday-Saturday in the lobby of the [facility], [address] [place] [address]. Empty pills into ziplock bag before disposal. Call [phone] for information. 2.[employer] is a free service available to all [facility] residents. Go to [email or web address] Note that many narcotic pain relievers also contain Tylenol/acetaminophen. Please ensure that your total dose of acetaminophen from all sources does not exceed 3 g (3000 mg) per day.
[2023-06-27] MEDS ORDERED: HYDROmorphone 1 MG/ML CARPUJECT IM STA ×2 (12:03→12:22)
[2023-06-27 12:45] VITALS: BP 150/65
--- NOTE | 2023-06-27 16:20 | ED Physician Documentation ---
ED Addendum - Addendum Addendum: 06/27/23 16:19 Subsequent to discharge I took a call from the pharmacist at [facility] and he notes that she filled a prescription for hydromorphone 2 days ago. The prescription if used at the maximum end of the prescribed dosing range should have lasted her 4 days and patient had told the pharmacist that she was already out of that. As such it seems that patient was misusing her medications and I agreed to cancel the prescription for Percocet.
== END 2023-06-27 12:42 | disposition home or self-care (01) ==
LOC: ED 11:32
DX: M54.6 Pain in thoracic spine (principal); G89.29 Other chronic pain
CPT/HCPCS: 96372; 99283; J1170

== ENCOUNTER 2023-07-15 12:15 | Emergency (ER) | payer MEDICARE, MEDICAID ==
--- NOTE | 2023-07-15 12:33 | ED Physician Documentation ---
History of Present Illness - Stated complaint Stated Complaint: MED REFILL - Chief complaint Chief Complaint: General - History obtained from History obtained from: Patient - Additonal information Additional information: 68-year-old female with history of alcohol use disorder, opiate medication misuse, chronic neck and back pain presents for medication refill. Patient states that she was just discharged from [facility], they were supposed to do surgery on her but they did not. She is referred to pain management and she states her appointment is not until tomorrow, but she ran out of medication this morning. Patient is requesting a refill of medication until she can see her pain management doctor tomorrow. It should be noted, patient told triage that she takes 60 mg of morphine, per information exchange packet patient just filled 30 tablets of 15 mg instant release morphine on 07/11/2023. Review of Systems Constitutional: denies: Fever, Chills GI: denies: Abdominal Pain, Nausea, Vomiting Musculoskeletal: reports: Neck pain, Back pain. 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: Hysterectomy - Present Medications Home Medications: Ambulatory Orders Medication Instructions Recorded Confirmed Cyclobenzaprine HCl 10 mg PO TID PRN 03/12/20 06/09/21 Ondansetron [Ondansetron Odt] 4 mg PO DAILY PRN 03/12/20 06/09/21 Trazodone HCl 50 mg PO QPM PRN 03/12/20 06/09/21 buprenorphine HCL [Buprenorphine 24 mg SL DAILY 08/04/20 06/09/21 HCl] Acetaminophen [Tylenol] 1,000 mg PO TID tablet 08/12/20 06/09/21 DULoxetine [Cymbalta] 20 mg PO DAILY capsule 08/12/20 06/09/21 Pantoprazole [Protonix] 40 mg PO QDAC tablet 08/12/20 06/09/21 Ondansetron Odt [Zofran] 4 mg TL Q6H PRN #10 tablet 06/05/21 06/09/21 HYDROcod/ACETAM 5/325 [[place] 5/325] 1 - 2 tablet PO Q6H PRN #14 tablet 08/16/21 - Allergies Allergies/Adverse Reactions: Allergies Allergy/AdvReac Type Severity Reaction Status Date / Time bupropion [From Wellbutrin] Allergy Anaphylaxis Verified 07/15/23 12:26 aspirin AdvReac Nausea Verified 07/15/23 12:26 NSAIDS (Non-Steroidal AdvReac Nausea Verified 07/15/23 12:26 Anti-Inflamma - Social History Does the pt smoke?: No Smoking Status: Never smoker Does the pt drink ETOH?: No Does the pt have substance abuse?: Yes - Immunizations Immunizations are current?: Yes Immunizations: TDAP >10years/unknown, Other immun current - POLST Patient has POLST: No POLST Status: Full Code PD ED PE NORMAL - Vitals Vital signs reviewed: Yes - General General: Alert and oriented X 3, Other (Appears chronically unwell, older than stated age, underweight) - Cardiac Cardiac: Other (TACHYCARDIA) - Abdomen Abdomen: Soft - Derm Derm: Normal color, Warm and dry, No rash - Extremities Extremities: No deformity, No tenderness to palpate - Neuro Neuro: Alert and oriented X 3, 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 She filled 30 tablets of 15 mg instant release morphine 4 days ago. In addition, I spoke with one of the local pharmacists, who states that there is an alert out for the patient's name due to her going to multiple pharmacies for narcotic pain medications. I informed the patient that I would not be able to refill any medications for her as she is very clearly overusing her prescribed medication. As a courtesy I can give her 1 IM dose of medication here, however she will need to follow-up with her pain management doctor and I will unfortunately not able to fill any additional prescriptions Departure - Departure Disposition: Home, Self Care Clinical Impression: Medication refill, Drug-seeking behavior Chronic pain Qualifiers: Chronic pain type: other chronic pain Qualified Code(s): G89.29 - Other chronic pain Condition: Stable Instructions: ED Neck Back Pain General Forms: PCP List
[2023-07-15] MEDS ORDERED: MORPHINE 2 MG/ML CARPUJECT IM STA (12:47)
[2023-07-15 13:12] VITALS: BP 144/89; O2SAT 99
== END 2023-07-15 13:04 | disposition home or self-care (01) ==
LOC: ED 12:15
DX: Z76.0 Encounter for issue of repeat prescription (principal); G89.29 Other chronic pain; Z76.5 Malingerer [conscious simulation]
CPT/HCPCS: 96372; 99283

== ENCOUNTER 2023-07-22 10:47 | Emergency (ER) | payer MEDICARE, MEDICAID ==
--- NOTE | 2023-07-22 12:22 | ED Physician Documentation ---
PD HPI BACK PAIN - Stated complaint Stated Complaint: BACK PX/MED FILL - Chief complaint Chief Complaint: General - History obtained from History obtained from: Patient - History of Present Illness Timing - onset: Chronic (with recent flare up of pain. Had had prior spinal fusion surgery and was having increased pain. Was at [facility] she says for 6-7 days for pain treatment. Discharged with scripts for Fentanyl patch (she has one on currrently but is third day), Morphine 30 mg ER, and Morphine IR.) Timing - details: Gradual onset, Still present Location: Lower Quality: Pain, Aching Associated symptoms: No: Fever, Weakness, Numbness, Incontinent of urine Worsened by: Movement Contributing factors: Other (lower back spinal fusion surgery in past.). No: Trauma Recently seen: Admitted ([facility], with discharge yesterday. 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 : None HEENT: None Psych: Depression, Anxiety Musculoskeletal: Osteoarthritis, Fibromyalgia, Chronic back pain Derm: None - Past Surgical History Past Surgical History: Yes General: Cholecystectomy, Bowel surgery 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 - Present Medications Home Medications: Ambulatory Orders Medication Instructions Recorded Confirmed Cyclobenzaprine HCl 10 mg PO TID PRN 03/12/20 06/09/21 Ondansetron [Ondansetron Odt] 4 mg PO DAILY PRN 03/12/20 06/09/21 Trazodone HCl 50 mg PO QPM PRN 03/12/20 06/09/21 buprenorphine HCL [Buprenorphine 24 mg SL DAILY 08/04/20 06/09/21 HCl] Acetaminophen [Tylenol] 1,000 mg PO TID tablet 08/12/20 06/09/21 DULoxetine [Cymbalta] 20 mg PO DAILY capsule 08/12/20 06/09/21 Pantoprazole [Protonix] 40 mg PO QDAC tablet 08/12/20 06/09/21 Ondansetron Odt [Zofran] 4 mg TL Q6H PRN #10 tablet 06/05/21 06/09/21 HYDROcod/ACETAM 5/325 [[place] 5/325] 1 - 2 tablet PO Q6H PRN #14 tablet 08/16/21 - Allergies Allergies/Adverse Reactions: Allergies Allergy/AdvReac Type Severity Reaction Status Date / Time bupropion [From Wellbutrin] Allergy Anaphylaxis Verified 07/22/23 11:05 aspirin AdvReac Nausea Verified 07/22/23 11:05 NSAIDS (Non-Steroidal AdvReac Nausea Verified 07/22/23 11:05 Anti-Inflamma - Social History Does the pt smoke?: No Smoking Status: Never smoker Does the pt drink ETOH?: No Does the pt have substance abuse?: Yes - Immunizations Immunizations are current?: Yes Immunizations: TDAP >10years/unknown, Other immun current - POLST Patient has POLST: No POLST Status: Full Code PD ED PE NORMAL - Vitals Vital signs reviewed: Yes - General General: Alert and oriented X 3, Well developed/nourished - Derm Derm: Normal color, Warm and dry - Neuro Neuro: Alert and oriented X 3, No motor deficit, No sensory deficit Results - Vitals Vitals: Vital Signs - 24 hr 07/22/23 07/22/23 11:05 13:17 Temperature 37 C Heart Rate 107 H 88 Respiratory 18 18 Rate Blood Pressure 149/65 H 129/69 O2 Saturation 94 98 Oxygen O2 Source [With Activity] Nasal cannula O2 Source [Without Activity] Nasal cannula O2 Source Room air PD Medical Decision Making - ED course Complexity details: reviewed old records (review of her MICHELLE and also pharmacy fill listing through [employer] showed last buprenorphine script was Jun 25 for 12. Recent scripts are small amounts at a time for pain meds. She has printed script in hand for meds from [facility] from yesterday.) ED course: In deference to the proivders that felt it appropriate to give pt pain med scripts from [facility] yesterday, I will try to bridge her meds until she can get the c current scripts from them filled tomorrow (presumedly the issues can get straightened out after holiday weeked is over). She states pharmacy was not wanting to fill her current scripts until verified from her provider that shew as not still currently on buprenorphine. I can verify no recent scripts for that by review of her MICHELLE and pharmacy fill record through [employer]. However, not going to be able to verify it to pharmacy and it is near time for their closure due to holiday. So I can give her dose of Morphine ER and replace fentanyl patch (she has one on currently that is at the third day and removed by nursing before placing new one). I was unable to give prepack however as was not close enough to time of pharmacies being closed and the problem of her not being able to get scripts filled until PCP contacts them was not a swaying reason per our pharmacist. She should be well enough though, into tomorrow, with the long acting meds to keep from having withdrawal nor too much pain. Departure - Departure Disposition: Home, Self Care Clinical Impression: Difficulty refilling prescriptions Back pain, chronic Qualifiers: Back pain location: low back pain Back pain laterality: unspecified Sciatica presence: unspecified whether sciatica present Qualified Code(s): M54.50 - Low back pain, unspecified Condition: Stable Record reviewed to determine appropriate education?: Yes Follow-Up: Alma Ferguson PA [Primary Care Provider] - Comments: Hopefully the prescription medications from [facility] can get sorted out with your prescriber/insurance tomorrow after the holiday weekend is over. At that point presumably the pharmacies will be able to fill the prescriptions given to you yesterday. Here today were able to give you one of the fentanyl patches and a long acting morphine tablet to temporize into tomorrow. We are not able to get out any short acting medications at this time since pharmacies are still open. Hopefully the long-acting will be adequate. You can add Tylenol to it if needed. Follow-up with your primary care and also the other prescribers tomorrow to clarify your prescription medications so they can be filled. Forms: PCP List Discharge Date/Time: 07/22/23 13:18
[2023-07-22] MEDS ORDERED: oxyCODONE/ACET 5/325 Prepack 4 PO STA (12:38)
[2023-07-22] MEDS ORDERED: MORPHINE SULFATE ER 30 MG TABLET PO STA (12:44)
[2023-07-22] MEDS ORDERED: fentaNYL 50 MCG PATCH TOP SCH (13:00)
[2023-07-22 13:24] VITALS: BP 129/69; O2SAT 98
== END 2023-07-22 13:18 | disposition home or self-care (01) ==
LOC: ED 10:47
DX: M54.50 Low back pain, unspecified (principal); G89.29 Other chronic pain; Z98.1 Arthrodesis status; Z79.899 Other long term (current) drug therapy
CPT/HCPCS: 99282; 99283; A9270

== ENCOUNTER 2023-10-21 12:53 | Outpatient (CLI) | payer MEDICARE, MEDICAID ==
--- NOTE | 2023-10-22 13:18 | Ultrasound Report ---
LIMITED ULTRASOUND OF LEFT BREAST: 10/21/2023 CLINICAL: Patient returns for a 6 month follow up of the left breast. Comparison is made to exams dated: 01/07/2023 ultrasound, 01/07/2023 mammogram, and 09/28/2014 mammogr [facility]. Color flow ultrasound of the left breast 2-3 o'clock region was performed on the areas of interest. Moralez scale images of the real-time examination were reviewed. There is an oval complicated cyst with a thickened wall in the left breast central to the nipple midd le depth. This oval complicated cyst displays posterior acoustic enhancement. This abnormality is d ecreased in size. There also is an oval complicated cyst in the left breast at 3 o'clock posterior depth. This oval co mplicated cyst is hypoechoic with posterior acoustic enhancement. This abnormality is not significan tly changed. IMPRESSION: PROBABLY BENIGN The oval complicated cyst in the left breast central to the nipple middle depth is probably benign. The oval complicated cyst in the left breast at 3 o'clock posterior depth is probably benign. A follow-up ultrasound in 12 months is recommended. This exam was interpreted at Station ID: [id number]. Electronically Signed By: Suzette al/:10/21/2023 13:48:51 Ultrasound BI-RADS: 3 Probably benign BI-RADS CATEGORY: (3) - 3 Ultrasound [id number] 12 month follow-up LATERALITY: (B)
== END 2023-10-21 12:54 | disposition home or self-care (01) ==
LOC: DI 12:53
PROVIDERS: ATTEND Internal Medicine
DX: N60.12 Diffuse cystic mastopathy of left breast (principal)

== ENCOUNTER 2023-12-27 12:46 | Outpatient (CLI) | payer MEDICARE, MEDICAID ==
--- NOTE | 2023-12-27 16:53 | DEXA Report ---
PROCEDURE: Dexa Spine and/or Hip INDICATIONS: POST MENOPAUSAL TECHNIQUE: Dual energy x-ray absorptiometry (DXA) was performed on a [employer] System. Regions measur ed are the AP Spine, femoral neck, and if needed forearm. Lumbar spine was not obtained and substitut ed with 4 secondary to significant lumbar fusion hardware. COMPARISON: None FINDINGS: Left Femoral Neck: Bone Mineral Density: 0.545 g/cm/cm, T score: -3.5. Left Hip: Bone Mineral Density: 0.5 g/cm/cm,T score: -0.4. Left Forearm: Bone Mineral Density: 0.636 g/cm/cm, T score: -2.7. (T score greater or equal to -1.0: NORMAL) (T score from -1.1 to -2.4: OSTEOPENIA) (T score less than or equal to -2.5 to: OSTEOPOROSIS) Impression: By WHO criteria, this patient has osteoporosis of the forearm. Patients with diagnosis of osteoporosis or osteopenia should have regular bone mineral density assess ment. For those eligible for Medicare, routine testing is allowed once every 2 years. Testing frequ ency can be increased for patients who have rapidly progressing disease or for those who are receivin g medical therapy to restore bone mass. Reviewed by: Margarita Sparks MD on 12/27/2023 4:52 PM PST Approved by: Margarita Sparks MD on 12/27/2023 4:52 PM PST Station ID: [id number]
== END 2023-12-27 12:47 | disposition home or self-care (01) ==
LOC: DI 12:46
PROVIDERS: ATTEND Physician Assistant
DX: N95.8 Other specified menopausal and perimenopausal disorders (principal); M81.0 Age-related osteoporosis without current pathological fracture; Z98.1 Arthrodesis status

== ENCOUNTER 2024-05-29 12:38 | Outpatient (CLI) | payer MEDICARE, MEDICAID ==
[2024-05-29] MEDS ORDERED: iohexoL-300 100 ML VIAL ONE (12:59)
[2024-05-29] MEDS ORDERED: DIATRIZOATE MEGLU/DIATRIZO SOD 30 ML BOTTLE PO ONE (12:59)
== END 2024-05-29 12:39 | disposition home or self-care (01) ==
LOC: DI 12:38
PROVIDERS: ATTEND Internal Medicine
DX: Z53.9 Procedure and treatment not carried out, unspecified reason (principal)
CPT/HCPCS: Q9963; Q9967

== ENCOUNTER 2024-05-29 12:48 | Outpatient (CLI) | payer MEDICARE, MEDICAID ==
[2024-05-29 13:17] LABS: CREATININE 0.6 mg/dL (0.6-1.3)
== END 2024-05-29 12:49 | disposition home or self-care (01) ==
LOC: LAB 12:48
PROVIDERS: ATTEND Internal Medicine
DX: Z79.899 Other long term (current) drug therapy (principal)
CPT/HCPCS: 36415; 82565

== ENCOUNTER 2024-05-29 15:26 | Emergency (ER) | payer MEDICARE, MEDICAID ==
[2024-05-29 16:58] LABS: BASOPHILS # (AUTO) 0.1 10^3/uL (0.0-0.1); BASOPHILS % (AUTO) 0.5 %; EOSINOPHILS # (AUTO) 0.1 10^3/uL (0.0-0.7); HCT - HEMATOCRIT 44.1 % (37.0-47.0); HGB - HEMOGLOBIN 14.9 g/dL (12.0-16.0); LYMPHOCYTES # (AUTO) 2.9 10^3/uL (1.5-3.5); LYMPHOCYTES % (AUTO) 26.5 %; MEAN CORPUSCULAR HEMOGLOBIN 33.4 pg (27.0-31.0); MEAN CORPUSCULAR HGB CONC 33.8 g/dL (32.0-36.0); MEAN CORPUSCULAR VOLUME 98.9 fL (81.0-99.0); MEAN PLATELET VOLUME 8.2 fL (7.9-10.8); MONOCYTES # (AUTO) 0.7 10^3/uL (0.0-1.0); MONOCYTES % (AUTO) 6.4 %; NEUTROPHILS # (AUTO) 7.1 10^3/uL (1.5-6.6); NEUTROPHILS % (AUTO) 65.2 %; PLT - PLATELET COUNT 322 10^3/uL (130-450); RED BLOOD COUNT 4.46 10^6/uL (4.20-5.40); RED CELL DISTRIBUTION WIDTH 13.2 % (12.0-15.0); WHITE BLOOD COUNT 10.9 x10^3/uL (4.8-10.8)
[2024-05-29 17:13] LABS: ALBUMIN 4.2 g/dL (3.2-5.5); ALBUMIN/GLOBULIN RATIO 1.3 (1.0-2.2); ALKALINE PHOSPHATASE 104 IU/L (42-121); ALT ALANINE AMINOTRANSFERASE 7 IU/L (10-60); AST ASPARTATE AMINOTRANSFERASE 13 IU/L (10-42); BILIRUBIN,TOTAL 0.5 mg/dL (0.2-1.0); BUN - BLOOD UREA NITROGEN 17 mg/dL (6-20); CALCIUM 10.4 mg/dL (8.5-10.3); CARBON DIOXIDE - CO2 24 mmol/L (21-32); CHLORIDE 104 mmol/L (101-111); CREATININE 0.5 mg/dL (0.6-1.3); ETOH - ETHANOL < 10.0 mg/dL; GFR - MDRD 123 (>89); GLUCOSE 94 mg/dL (74-104); POTASSIUM 3.9 mmol/L (3.5-4.5); SODIUM 134 mmol/L (135-145); TOTAL PROTEIN 7.4 g/dL (6.4-8.9)
[2024-05-29 17:15] LABS: LIPASE < 10 U/L (11-82)
--- NOTE | 2024-05-29 19:02 | ED Physician Documentation ---
PD HPI ABD PAIN - Stated complaint Stated Complaint: DEHYDRATED,ABD/UPPER BACK PX - Chief complaint Chief Complaint: Abd Pain - History obtained from History obtained from: Patient - Additional information Additional information: 69-year-old woman with history of alcoholism in remission, tobacco abuse and hysterectomy presents for the evaluation of abdominal pain. It has been going on for about a year and she feels severe early satiety and has had lost about 30 pounds. She feels like her abdomen is distended despite having lost so much weight. She was sent for a CAT scan today but ended up in the emergency department instead. PD PAST MEDICAL HISTORY - Past Medical History Cardiovascular: None Respiratory: None Neuro: None, Other Endocrine/Autoimmune: None GI: Other EMBROIDERY CUTTER: None : None HEENT: None Psych: Depression, Anxiety Musculoskeletal: Osteoarthritis, Fibromyalgia, Chronic back pain Derm: None - Past Surgical History Past Surgical History: Yes General: Cholecystectomy, Bowel surgery Ortho: Spine surgery /EMBROIDERY CUTTER: Hysterectomy - Present Medications Home Medications: Ambulatory Orders Medication Instructions Recorded Confirmed Cyclobenzaprine HCl 10 mg PO TID PRN 03/12/20 06/09/21 Ondansetron [Ondansetron Odt] 4 mg PO DAILY PRN 03/12/20 06/09/21 Trazodone HCl 50 mg PO QPM PRN 03/12/20 06/09/21 buprenorphine HCL [Buprenorphine 24 mg SL DAILY 08/04/20 06/09/21 HCl] Acetaminophen [Tylenol] 1,000 mg PO TID tablet 08/12/20 06/09/21 DULoxetine [Cymbalta] 20 mg PO DAILY capsule 08/12/20 06/09/21 Pantoprazole [Protonix] 40 mg PO QDAC tablet 08/12/20 06/09/21 Ondansetron Odt [Zofran] 4 mg TL Q6H PRN #10 tablet 06/05/21 06/09/21 HYDROcod/ACETAM 5/325 [[place] 5/325] 1 - 2 tablet PO Q6H PRN #14 tablet 08/16/21 Lactulose 10 gm PO QID #150 ml 05/29/24 - Allergies Allergies/Adverse Reactions: Allergies Allergy/AdvReac Type Severity Reaction Status Date / Time bupropion [From Wellbutrin] Allergy Anaphylaxis Verified 05/29/24 15:30 aspirin AdvReac Nausea Verified 05/29/24 15:30 NSAIDS (Non-Steroidal AdvReac Nausea Verified 05/29/24 15:30 Anti-Inflamma - Social History Does the pt smoke?: No Smoking Status: Never smoker Does the pt drink ETOH?: No Does the pt have substance abuse?: Yes - Immunizations Immunizations are current?: Yes Immunizations: TDAP >10years/unknown, Other immun current - POLST Patient has POLST: No POLST Status: Full Code PD ED PE NORMAL - Vitals Vital signs reviewed: Yes - General General: Alert and oriented X 3, Other (Thin but in no distress.) - Cardiac Cardiac: RRR, No murmur - Respiratory Respiratory: No respiratory distress, Clear bilaterally - Abdomen Abdomen: Other (Distended firm abdomen without significant tenderness.) - Neuro Neuro: Alert and oriented X 3 Results - Vitals Vitals: Vital Signs - 24 hr 05/29/24 05/29/24 15:30 20:50 Temperature 36.5 C Heart Rate 85 76 Respiratory 18 18 Rate Blood Pressure 170/95 H 131/91 H O2 Saturation 96 95 Oxygen O2 Source [With Activity] Nasal cannula O2 Source [Without Activity] Nasal cannula O2 Source Room air - Labs Labs: Laboratory Tests 05/29/24 05/29/24 16:54 16:54 WBC 10.9 H RBC 4.46 Hgb 14.9 Hct 44.1 MCV 98.9 MCH 33.4 H MCHC 33.8 RDW 13.2 Plt Count 322 MPV 8.2 Neut # (Auto) 7.1 H Lymph # (Auto) 2.9 [place] # (Auto) 0.7 Eos # (Auto) 0.1 Baso # (Auto) 0.1 Absolute Nucleated RBC 0.00 Nucleated RBC % 0.0 Sodium 134 L Potassium 3.9 Chloride 104 Carbon Dioxide 24 Anion Gap 6.0 BUN 17 Creatinine 0.5 L Estimated GFR (MDRD) 123 Glucose 94 Calcium 10.4 H Total Bilirubin 0.5 AST 13 ALT 7 L Alkaline Phosphatase 104 Total Protein 7.4 Albumin 4.2 Globulin 3.2 Albumin/Globulin Ratio 1.3 Lipase < 10 L Ethyl Alcohol < 10.0 PD Medical Decision Making - ED course ED course: 69-year-old woman with significant weight loss and abdominal swelling but all subacute to chronic. CT imaging demonstrating a large stool load and dilatation of the pancreatic and biliary ducts. Her labs do not demonstrate any cholestatic changes and her CBC and blood alcohol were otherwise negative. She will need the MRCP but I do not think it needs to be urgent and she really does want to go home. She was somewhat insistent for pain medication before she left, but I set expectations with her. Will worsen her constipation and we agreed on 4 Percocet to go. Departure - Departure Disposition: Home, Self Care Clinical Impression: Constipation Qualifiers: Constipation type: unspecified constipation type Qualified Code(s): K59.00 - Constipation, unspecified Abdominal pain Qualifiers: Abdominal location: generalized Qualified Code(s): R10.84 - Generalized abdominal pain Condition: Good Record reviewed to determine appropriate education?: Yes Instructions: ED Abdominal Pain Female Non-Specific Abdominal Pain Prescriptions: Lactulose 10 gm PO QID #150 ml Comments: As discussed, the main thing tonight that is causing the abdominal swelling is a very large load of stool throughout your colon for which I am prescribing some stronger laxatives. I think if you can get that cleaned out you will feel a lot better. There was also some swelling of the bile ducts in that area and you should talk to Dr. Marshall about scheduling an MRCP which is a special MRI to look at that. Otherwise does not seem like anything too serious is going on and I am glad that Dr. Marshall is already considering sending you to a surgeon for a feeding tube given your weight loss. Call your doctor to arrange a follow-up appointment, make the next available appointment. In the interim, return anytime if worse or if new symptoms develop. Given that you do not feel particularly constipated I would take the laxative until the swelling goes down. Forms: PCP List
[2024-05-29] MEDS ORDERED: iohexoL-300 100 ML VIAL ONE (19:16)
[2024-05-29] MEDS: SODIUM CHLORIDE 0.9% 1,000 ML IV STA (19:51)
[2024-05-29] MEDS: HYDROmorphone 1 MG/ML CARPUJECT IVP STA ×2 (19:51→20:22)
[2024-05-29] MEDS: iohexoL-300 100 ML VIAL IVP ONE (20:34)
[2024-05-29 20:54] VITALS: BP 131/91; O2SAT 95
--- NOTE | 2024-05-29 21:19 | CT Report ---
PROCEDURE: Abdomen/Pelvis W INDICATIONS: iv only, abd pain CONTRAST: 80 ML OMNI 300 TECHNIQUE: After the administration of intravenous contrast, a CT scan of the abdomen and pelvis was performed. Images were recorded and evaluated at appropriate window settings. Reformats: coronal and sagittal. F or radiation dose reduction, the following was used: automated exposure control, adjustment of mA and /or kV according to patient size. COMPARISON: CT abdomen pelvis 08/16/2021. FINDINGS: Image quality: Streak artifact from extensive posterior spinal fusion. Lower chest: Emphysema. Bibasilar atelectasis.. Liver: No solid mass. Gallbladder: Surgically absent. Biliary tree: Moderate intrahepatic dilatation. Dilatation of the common bile duct measuring up to ap proximately 1.8 cm. Spleen: No splenomegaly. Pancreas: Limited views of the pancreas due to streak metal artifact from posterior spinal fusion. Pa ncreatic duct measures up to 4-5 mm. The calcifications in the pancreatic body and tail likely reflec t chronic pancreatitis. Adrenals: No adrenal nodule. Kidneys and ureters: No hydronephrosis. No renal cystic lesion which requires follow up. No solid mas s. Large bilateral simple cysts. Stomach, bowel and peritoneum: No gastric or small bowel dilation. No abnormal wall thickening. No pa thologic free fluid. Large amount of stool is seen throughout the colon. Lymph nodes: No central or retroperitoneal adenopathy. Vessels: No infrarenal aortic aneurysm. Patent portal vein. Aortobiiliac atherosclerotic calcificatio ns. PELVIS Reproductive organs: Unremarkable. Bladder: No abnormal wall thickening, accounting for underdistention. Pelvic lymph nodes: No pelvic adenopathy by size criteria. Bones: No aggressive osseous abnormality. Bones are demineralized. Extensive posterior thoracolumbar spinal fixation hardware with intervertebral disc spacer. No acute vertebral body compression fractur e. Other: No significant ventral or inguinal hernia. IMPRESSION: Status post cholecystectomy. Moderate dilatation of the intrahepatic biliary ducts as well as the com mon bile duct measuring up to 1.8 cm, greater than expected for postcholecystectomy changes. No radio dense obstructing stone identified to indicate choledocholithiasis. Incidental further evaluation wit h nonemergent MRI abdomen/MRCP. Limited evaluation of pancreas demonstrates mildly dilated pancreatic duct measuring up to 5 mm with sequela of chronic pancreatitis. Large amount stool throughout the colon can be seen in the setting of constipation. Reviewed by: Madelaine Greene MD, PhD on 05/29/2024 9:18 PM PDT Approved by: Madelaine Greene MD, PhD on 05/29/2024 9:18 PM PDT Station ID: [id number]
[2024-05-29] MEDS: MAGNESIUM CITRATE 296 ML BOTTLE PO STA (21:40)
[2024-05-29] MEDS: oxyCODONE/ACET 5/325 Prepack 4 PO STA (21:41)
== END 2024-05-29 21:48 | disposition home or self-care (01) ==
LOC: ED 15:26
DX: K59.00 Constipation, unspecified (principal); R10.84 Generalized abdominal pain; K83.8 Other specified diseases of biliary tract; R63.4 Abnormal weight loss; Z90.49 Acquired absence of other specified parts of digestive tract; Z79.899 Other long term (current) drug therapy
CPT/HCPCS: 36415; 74177; 80053; 82565; 83690; 85025; 96374; 96376; 99284; A9270; G0480; J1170; Q9967; 82077

== ENCOUNTER 2024-06-18 16:47 | Outpatient (CLI) | payer MEDICARE, MEDICAID | END 2024-06-18 23:59 | disposition short-term general hospital (02) | LOC: EMS 16:47 | DX: K94.23 Gastrostomy malfunction (principal); R10.9 Unspecified abdominal pain | CPT/HCPCS: A0425; A0429; A0888 ==

== ENCOUNTER 2024-07-14 15:07 | Emergency (ER) | payer MEDICARE, MEDICAID ==
--- NOTE | 2024-07-14 15:36 | ED Physician Documentation ---
History of Present Illness - Stated complaint Stated Complaint: ABS STICH REMOVAL - History obtained from History obtained from: Patient - History of Present Illness Timing: Prior to arrival - Additonal information Additional information: Patient is a 69-year-old female presenting to the emergency department for suture removal of around G-tube site. Patient had G-tube placed 06/15. She is post to have sutures removed 2 weeks later however she did not have them removed and is here in the emergency department for suture removal. She followed up with her primary care doctor and they recommended commended her to come to the emergency department as they were unable to remove on at facility. Patient denies any irritation around the site. She notes one of the buttons holding and the sutures fell off this morning and only 2 sutures are left. PD PAST MEDICAL HISTORY - Past Medical History Cardiovascular: None Respiratory: None Neuro: None, Other Endocrine/Autoimmune: None GI: Other ESCROW AGENT: None : None HEENT: None Psych: Depression, Anxiety Musculoskeletal: Osteoarthritis, Fibromyalgia, Chronic back pain Derm: None - Past Surgical History Past Surgical History: Yes General: Cholecystectomy, Bowel surgery Ortho: Spine surgery /ESCROW AGENT: Hysterectomy - Present Medications Home Medications: Ambulatory Orders Medication Instructions Recorded Confirmed Cyclobenzaprine HCl 10 mg PO TID PRN 03/12/20 06/09/21 Ondansetron [Ondansetron Odt] 4 mg PO DAILY PRN 03/12/20 06/09/21 Trazodone HCl 50 mg PO QPM PRN 03/12/20 06/09/21 buprenorphine HCL [Buprenorphine 24 mg SL DAILY 08/04/20 06/09/21 HCl] Acetaminophen [Tylenol] 1,000 mg PO TID tablet 08/12/20 06/09/21 DULoxetine [Cymbalta] 20 mg PO DAILY capsule 08/12/20 06/09/21 Pantoprazole [Protonix] 40 mg PO QDAC tablet 08/12/20 06/09/21 Ondansetron Odt [Zofran] 4 mg TL Q6H PRN #10 tablet 06/05/21 06/09/21 HYDROcod/ACETAM 5/325 [[place] 5/325] 1 - 2 tablet PO Q6H PRN #14 tablet 08/16/21 Lactulose 10 gm PO QID #150 ml 05/29/24 - Allergies Allergies/Adverse Reactions: Allergies Allergy/AdvReac Type Severity Reaction Status Date / Time bupropion [From Wellbutrin] Allergy Anaphylaxis Verified 07/14/24 15:35 aspirin AdvReac Nausea Verified 07/14/24 15:35 NSAIDS (Non-Steroidal AdvReac Nausea Verified 07/14/24 15:35 Anti-Inflamma - Social History Does the pt smoke?: No Smoking Status: Never smoker Does the pt drink ETOH?: No Does the pt have substance abuse?: Yes - Immunizations Immunizations are current?: Yes Immunizations: TDAP >10years/unknown, Other immun current - POLST Patient has POLST: No POLST Status: Full Code PD ED PE NORMAL - Vitals Vital signs reviewed: Yes - General General: Alert and oriented X 3 - HEENT HEENT: Atraumatic - Neck Neck: Supple, no meningeal sign - Cardiac Cardiac: RRR, No murmur, No gallop, No rub - Respiratory Respiratory: No respiratory distress, Clear bilaterally - Abdomen Abdomen: Soft, Other - Derm Derm: Normal color, Warm and dry - Neuro Neuro: Alert and oriented X 3 Results - Vitals Vitals: Oxygen O2 Source [With Activity] Nasal cannula O2 Source [Without Activity] Nasal cannula O2 Source Room air PD Medical Decision Making - ED course Complexity details: reviewed old records ED course: Patient is a 69-year-old female presenting to the emergency department after h aving G-tube placed on 729 patient was having to have button sutures removed on about 2 weeks after but did not have a provider to remove them so she came to the emergency department today for removal. This is G-tube was placed due to malnutrition while patient was inpatient at [facility]. It was placed by IR department. Discussed case with nursing staff at IR department they were able to confirm this and that the sutures need to be removed. Patient had 2 sutures removed as one of the sutures fell off this morning. Patient tolerated this well. G-tube appeared to be working well. Patient will follow-up with PCP or GI in the outpatient setting for further care of her G- tbue. Departure - Departure Disposition: 01 Home, Self Care Clinical Impression: Visit for suture removal Condition: Good Comments: You were seen here in the emergency department for your G-tube suture removal I was able to remove your sutures here in the emergency department without difficulty. Keep area clean and dry follow-up with your GI doctor or primary care doctor for reevaluation of the G-tube to ensure good wound healing.
[2024-07-14 15:46] VITALS: BP 118/74; O2SAT 95
== END 2024-07-14 16:12 | disposition home or self-care (01) ==
LOC: ED 15:07
DX: Z48.02 Encounter for removal of sutures (principal); Z79.899 Other long term (current) drug therapy
CPT/HCPCS: 99281; 99283